=== PATIENT | female | born 1940 | race Caucasian/White ===

== ENCOUNTER → 2017-03-23 09:31 | Outpatient (CLI) | payer MEDICARE, BC, SELFPAY ==
[2017-03-23 12:24] LABS: Absolute Lymphocyte Count 1.63 X10^3/ul (0.83-4.51); Absolute Neutrophil Count 3.3 X10^3/uL (2.0-7.7); Basophil# 0.01 X10^3/uL; Basophil% 0.2 % (0-1); Eosinophil# 0.09 X10^3/uL; Eosinophils% 1.6 % (0-5); Hematocrit 41.5 % (37-47); Hemoglobin 13.4 g/dl (12.0-15.0); Lymphocyte # 1.63 X10^3/ul (4.0); Lymphocyte % 29.4 % (19-41); Mean Corp Hgb Conc 32.3 g/gl (32-36); Mean Corpuscular Hgb 36.3 pg (27.0-32.0); Mean Corpuscular Volume 112.5 fL (81-99); Mean Platelet Vol. 10.7 fl (6.2-12.0); Monocyte# 0.51 X10^3/uL; Monocyte% 9.2 % (0-10); Neutrophil # 3.28 X10^3/uL (2.7-7.7); Neutrophil % 59.2 % (47-70); Platelet Count 184 K/mm3 (150-450); RBC Distribution Width CV 12.7 % (11.6-14.6); RBC Distribution Width SD 50.3 fl (35.1-43.9); Red Blood Count 3.69 M/mm3 (4.2-5.4); White Blood Count 5.5 K/mm3 (4.4-11.0)
[2017-03-23 12:25] LABS: POSITIVE COUNT NO; POSITIVE DIFFERENTIAL NO; POSITIVE MORPHOLOGY NO
[2017-03-23 12:43] LABS: Vitamin D,25 Hydroxy 18.2 ng/mL (19.95-100.01)
[2017-03-23 12:56] LABS: ALB/GLOB Ratio 0.6 RATIO (0.9-2.4); AST(SGOT) 19 U/L (15-37); Alanine Aminotransfer ALT/SGPT 14 U/L (13-56); Albumin, Serum 2.5 g/dL (3.2-5.0); Alkaline Phosphatase 61 U/L (45-117); Anion Gap 8 (5-15); BUN 25 mg/dL (7-18); Calcium,Total 8.7 mg/dL (8.5-10.1); Chloride 104 mmol/L (98-107); Creatinine, Serum 1.04 mg/dL (0.55-1.02); EST Glomerular Filtration Rate 54 mL/min (>60); Est Glom Filt Rate - Afr Amer 66 mL/min (>60); Globulin 4.2 g/dL (2.2-4.2); Glucose 129 mg/dL (74-106); Potassium 4.1 mmol/L (3.5-5.1); Protein, Total 6.7 g/dL (6.4-8.2); Sodium Level 141 mmol/L (136-145); Thyroid Stim Hormone (TSH) 2.63 uIU/mL (0.358-3.74)
== END ==
PROVIDERS: Family Provider Family Medicine Geriatric Medicine; PCP Family Medicine Geriatric Medicine; Visit Provider Family Medicine Geriatric Medicine
DX: I10 Essential (primary) hypertension (principal); E55.9 Vitamin D deficiency, unspecified
CPT/HCPCS: 36415; 80053; 82306; 84443; 85025

== ENCOUNTER 2017-07-20 14:44 | Emergency (ER) | payer MEDICARE, BC, SELFPAY ==
--- NOTE | 2017-07-20 14:44 | DT_ITS ---
This patient was seen during an EMR downtime July 20, 2017 - July 27, 2017. This patient may have a combination of paper and electronic documentation or all paper documentation. All documentation is viewable within the e-chart portion of [facility] for each patient visit.
[2017-07-23 10:55] LABS: Anion Gap 5 (5-15); BUN 17 mg/dL (7-18); BUN/Creat Ratio 18.1 RATIO (10-20); Calcium,Total 8.3 mg/dL (8.5-10.1); Chloride 109 mmol/L (98-107); Creatinine, Serum 0.94 mg/dL (0.55-1.02); EST Glomerular Filtration Rate 61 mL/min (>60); Est Glom Filt Rate - Afr Amer 74 mL/min (>60); Glucose 96 mg/dL (74-106); Sodium Level 143 mmol/L (136-145)
[2017-07-24 10:46] LABS: Hematocrit 41.5 % (37-47); Hemoglobin 13.1 g/dl (12.0-15.0); Mean Corp Hgb Conc 31.6 g/gl (32-36); RBC Distribution Width CV 11.7 % (11.6-14.6); Red Blood Count 3.64 M/mm3 (4.2-5.4); White Blood Count 4.7 K/mm3 (4.4-11.0)
[2017-07-24 10:47] LABS: Absolute Lymphocyte Count 0.66 X10^3/ul (0.83-4.51); Absolute Neutrophil Count 3.6 X10^3/uL (2.0-7.7); Basophil# 0.01 X10^3/uL; Basophil% 0.2 % (0-1); Differential Indicated SCAN CRITERIA MET; Eosinophil# 0.08 X10^3/uL; Eosinophils% 1.7 % (0-5); Lymphocyte # 0.66 X10^3/ul (4.0); Macrocytosis 1+; Mean Platelet Vol. 10.4 fl (6.2-12.0); Monocyte# 0.42 X10^3/uL; Monocyte% 8.9 % (0-10); Neutrophil # 3.56 X10^3/uL (2.7-7.7); Neutrophil % 75.2 % (47-70); POSITIVE COUNT NO; POSITIVE DIFFERENTIAL NO; POSITIVE MORPHOLOGY YES; Platelet Count 147 K/mm3 (150-450)
== END 2017-07-20 17:44 | disposition home or self-care (01) ==
LOC: ED 07-22 13:29
PROVIDERS: Emergency Provider Emergency Medicine; Family Provider Family Medicine Geriatric Medicine; PCP Family Medicine Geriatric Medicine
DX: L03.115 Cellulitis of right lower limb (principal); F03.90 Unspecified dementia, unspecified severity, without behavioral disturbance, psychotic disturbance, mood disturbance, and anxiety; E78.00 Pure hypercholesterolemia, unspecified; E03.9 Hypothyroidism, unspecified; F32.9 Major depressive disorder, single episode, unspecified; Z86.73 Personal history of transient ischemic attack (TIA), and cerebral infarction without residual deficits; Z79.82 Long term (current) use of aspirin; Z79.899 Other long term (current) drug therapy
CPT/HCPCS: 36415; 80048; 85025; 93971; 96360; 96361; 99284; J7030; A4216

== ENCOUNTER → 2017-08-20 15:12 | Outpatient (CLI) | payer MEDICARE, BC, SELFPAY ==
--- NOTE | 2017-08-20 15:45 | RAD_ITS ---
STUDY: X-RAY - RIGHT ANKLE REASON FOR EXAM: Female, 77 years old. Lateral pain, no known injury TECHNIQUE: 3 view(s) of the ankle. COMPARISON: None. FINDINGS: Normal visualized distal tibia and fibula. Normal medial and lateral malleoli. Normal tibiotalar articulation and ankle mortise. Normal visualized talus and calcaneus. The visualized subtalar, talonavicular, calcaneocuboid and tarsal articulations are normal. The soft tissue structures are unremarkable. RAD/Ankle min 3 Views IMPRESSION: Normal x-ray examination of the ankle. Electronically Signed: Chapin Dumont MD at 16:03 EDT , Service support ,
[2017-08-20 17:13] LABS: Absolute Lymphocyte Count 1.03 X10^3/ul (0.83-4.51); Absolute Neutrophil Count 3.6 X10^3/uL (2.0-7.7); Basophil# 0.01 X10^3/uL; Basophil% 0.2 % (0-1); Eosinophil# 0.07 X10^3/uL; Eosinophils% 1.4 % (0-5); Hematocrit 43.3 % (37-47); Hemoglobin 13.5 g/dl (12.0-15.0); Lymphocyte # 1.03 X10^3/ul (4.0); Lymphocyte % 20.4 % (19-41); Mean Corp Hgb Conc 31.2 g/gl (32-36); Mean Corpuscular Hgb 34.6 pg (27.0-32.0); Mean Platelet Vol. 10.9 fl (6.2-12.0); Monocyte# 0.34 X10^3/uL; Monocyte% 6.7 % (0-10); Neutrophil # 3.61 X10^3/uL (2.7-7.7); Neutrophil % 71.3 % (47-70); Platelet Count 163 K/mm3 (150-450); RBC Distribution Width CV 12.4 % (11.6-14.6); RBC Distribution Width SD 49.8 fl (35.1-43.9); White Blood Count 5.1 K/mm3 (4.4-11.0)
[2017-08-20 17:15] LABS: Erythrocyte Sedimentation Rate 14 mm/hr (0-30); POSITIVE COUNT NO; POSITIVE DIFFERENTIAL NO; POSITIVE MORPHOLOGY NO
[2017-08-20 17:47] LABS: Anion Gap 8 (5-15); BUN 21 mg/dL (7-18); BUN/Creat Ratio 19.3 RATIO (10-20); CRP < 2.90 mg/L (0.0-3.0); Calcium,Total 8.5 mg/dL (8.5-10.1); Chloride 107 mmol/L (98-107); Creatinine, Serum 1.09 mg/dL (0.55-1.02); EST Glomerular Filtration Rate 51 mL/min (>60); Est Glom Filt Rate - Afr Amer 62 mL/min (>60); Glucose 87 mg/dL (74-106); Potassium 4.4 mmol/L (3.5-5.1); Sodium Level 143 mmol/L (136-145); Uric Acid 4.3 mg/dL (2.6-6.0)
== END ==
PROVIDERS: Family Provider Family Medicine Geriatric Medicine; PCP Family Medicine Geriatric Medicine; Visit Provider Family Medicine Geriatric Medicine
DX: I10 Essential (primary) hypertension (principal); M10.9 Gout, unspecified; M25.579 Pain in unspecified ankle and joints of unspecified foot
CPT/HCPCS: 36415; 73610; 80048; 84550; 85025; 85652; 86140

== ENCOUNTER → 2017-09-07 14:52 | Outpatient (CLI) | payer MEDICARE, BC, SELFPAY ==
[2017-09-07 17:09] LABS: Absolute Lymphocyte Count 0.83 X10^3/ul (0.83-4.51); Absolute Neutrophil Count 3.9 X10^3/uL (2.0-7.7); Basophil# 0.01 X10^3/uL; Basophil% 0.2 % (0-1); Eosinophil# 0.08 X10^3/uL; Eosinophils% 1.5 % (0-5); Hematocrit 43.3 % (37-47); Lymphocyte # 0.83 X10^3/ul (4.0); Lymphocyte % 15.8 % (19-41); Mean Corp Hgb Conc 32.3 g/gl (32-36); Mean Corpuscular Hgb 35.8 pg (27.0-32.0); Mean Corpuscular Volume 110.7 fL (81-99); Mean Platelet Vol. 11.1 fl (6.2-12.0); Monocyte# 0.46 X10^3/uL; Monocyte% 8.8 % (0-10); Neutrophil # 3.86 X10^3/uL (2.7-7.7); Neutrophil % 73.7 % (47-70); Platelet Count 167 K/mm3 (150-450); RBC Distribution Width SD 47.7 fl (35.1-43.9); Red Blood Count 3.91 M/mm3 (4.2-5.4); White Blood Count 5.2 K/mm3 (4.4-11.0)
[2017-09-07 17:11] LABS: POSITIVE COUNT NO; POSITIVE DIFFERENTIAL NO; POSITIVE MORPHOLOGY NO
[2017-09-07 17:38] LABS: ALB/GLOB Ratio 0.7 RATIO (0.9-2.4); AST(SGOT) 23 U/L (15-37); Alanine Aminotransfer ALT/SGPT 13 U/L (13-56); Albumin, Serum 2.9 g/dL (3.2-5.0); Alkaline Phosphatase 81 U/L (45-117); Anion Gap 8 (5-15); BUN 22 mg/dL (7-18); BUN/Creat Ratio 20.4 RATIO (10-20); Chloride 107 mmol/L (98-107); Creatinine, Serum 1.08 mg/dL (0.55-1.02); EST Glomerular Filtration Rate 52 mL/min (>60); Est Glom Filt Rate - Afr Amer 63 mL/min (>60); Globulin 3.9 g/dL (2.2-4.2); Glucose 92 mg/dL (74-106); Potassium 4.2 mmol/L (3.5-5.1); Protein, Total 6.8 g/dL (6.4-8.2); Sodium Level 144 mmol/L (136-145); Thyroid Stim Hormone (TSH) 1.88 uIU/mL (0.358-3.74)
== END ==
PROVIDERS: Family Provider Family Medicine Geriatric Medicine; PCP Family Medicine Geriatric Medicine; Visit Provider Family Medicine Geriatric Medicine
DX: I10 Essential (primary) hypertension (principal); N39.0 Urinary tract infection, site not specified; E55.9 Vitamin D deficiency, unspecified
CPT/HCPCS: 36415; 80053; 82306; 84443; 85025; 87086; 87088

== ENCOUNTER 2018-01-17 14:28 | Emergency (ER) | payer MEDICARE, BC, SELFPAY ==
[2018-01-17 14:28] VITALS: BP 157/76; PULSE 72; RESP 16; TEMP 36.6; O2SAT 96; BMI 21.7
--- NOTE | 2018-01-17 15:00 | RAD_ITS ---
STUDY: X-RAY - RIGHT TIBIA AND FIBULA REASON FOR EXAM: Female, 78 years old. Pain TECHNIQUE: 2 view(s) of the tibia and fibula were obtained. COMPARISON: None. FINDINGS: No definite evidence for an acute fracture or dislocation seen. There are likely vascular calcifications present. Talar dome appears intact. Fibular head neck junction appears intact. Calcaneal spurring. IMPRESSION: No definite evidence for acute fractures. Atherosclerotic vascular calcifications Electronically Signed: Cyrus Baca, at 16:15 EST Tel , Service support , RAD/Tibia & Fibula 2 Views
--- NOTE | 2018-01-17 15:00 | RAD_ITS ---
STUDY: X-RAY - RIGHT FOOT CLINICAL: Female, 78 years old. Injury and pain TECHNIQUE: Three view(s) of the foot were obtained. COMPARISON: None. FINDINGS: Bones: There are no acute osseous abnormalities. Joints: The visualized joints are unremarkable. Soft tissues: The soft tissues are unremarkable. Foreign body: None RAD/Foot min 3 Views IMPRESSION: No acute abnormalities are seen. Electronically Signed: Char Crooks MD at 16:20 EST Tel Direct: [phone], Service support ,
--- NOTE | 2018-01-17 15:01 | ED.VISSUMM ---
- ER Visit Summary Date of Service: 01/17/18 Chief Complaint: Leg pain History of Present Illness: The patient is a 78 F who fell last night. Mechanical fall. No loss of consciousness. She did not hit her head or neck. She complains of pain to her right leg and right foot. Worse with weightbearing and movement. Nothing seems to make it better. No other associated symptoms. Physical Examination: Afebrile and vital signs unremarkable. No acute distress. Head and neck grossly atraumatic. Right lower leg is diffusely tender to palpation. Right foot is also diffusely tender to palpation. Inspection appears normal. Good range of motion. Good strength and sensation. Pulses intact. Calf soft and supple. Negative logroll. Exam otherwise unremarkable. Test Results: X-rays of the leg and foot were obtained. Emergency Department Course and Treatment: Patient declined pain medicine. X-rays were negative. Nothing acute. Patient is able to ambulate. I suspect she has a soft tissue injuries, sprain. Patient was advised to follow-up in a week or so if she has continued pain for repeat x-rays. She may use anti-inflammatories for pain. Rest, ice, elevate. Treatment Plan: As above Disposition: Discharged Impression: 1. Right foot pain This note was generated with [employer] dictation software. It may contain incorrect words, spelling, and punctuation that were not noted in review of the chart prior to signing ED Disposition - Plan for ED Patient: Chief Complaint: Fall Instructions: ED Mechanical Fall Referrals: Kwan Murphy Chi, MD [Primary Care Provider] -
--- NOTE | 2018-01-17 16:37 | ED.DEP ---
ED Disposition - Plan for ED Patient: Chief Complaint: Fall Instructions: ED Mechanical Fall Referrals: Kwan Murphy Chi, MD [Primary Care Provider] -
[2018-01-17 16:48] VITALS: BP 179/90; PULSE 68; RESP 16; O2SAT 94
--- OUTSIDE RECORDS SUMMARY | 2018-03-12 23:55 | XMS RPT_ITS ---
:1940 Author Organization OHIP Support Name Relationship Address Phone R Unavailable Unavailable Unavailable CATHLEEN DANGELO Unavailable [address] + [place] [address] MYCHAL TORRE Unavailable [address] + [place] [address] R Unavailable Unavailable Unavailable CATHLEEN DANGELO Unavailable [address] + [place] [address] YELITZA, MYCHAL Unavailable [address] + [place] [address] R Unavailable Unavailable Unavailable CATHLEEN DANGELO Unavailable [address] + [place] [address] YELITZA, MYCHAL Unavailable [address] + [place] [address] R Unavailable Unavailable Unavailable CATHLEEN DANGELO Unavailable [address] + [place] [address] YELITZA, MYCHAL Unavailable [address] + [place] [address] R Unavailable Unavailable Unavailable CATHLEEN DANGELO Unavailable [address] + [place] [address] YELITZA, MYCHAL Unavailable [address] + [place] [address] R Unavailable Unavailable Unavailable CATHLEEN DANGELO Unavailable [address] + [place] [address] YELITZA, MYCHAL Unavailable [address] + [place] [address] R Unavailable Unavailable Unavailable CATHLEEN DANGELO Unavailable [address] + [place] [address] YELITZA, MYCHAL Unavailable [address] + [place] [address] R Unavailable Unavailable Unavailable RUMSARAI CATHLEEN Unavailable [address] + [facility] [place] [address] YELITZA, MYCHAL Unavailable [address] + [place] [address] Care Team Providers Name Role Phone Jeffrey, Kwan Chi Attending Unavailable Jeffrey, Kwan Chi Referring Unavailable Jeffrey, Kwan Chi Primary Care Unavailable Jeffrey, Kwan Chi Attending Unavailable Jeffrey, Kwan Chi Primary Care Unavailable Hermelinda Mejia Attending Unavailable Jeffrey, Kwan Chi Referring Unavailable Jeffrey, Kwan Chi Primary Care Unavailable Ungur, Remus Attending Unavailable Ungur, Remus Referring Unavailable Jeffrey, Kwan Chi Primary Care Unavailable Jeffrey, Kwan Chi Attending Unavailable Jeffrey, Kwan Chi Primary Care Unavailable Jeffrey, Kwan Chi Referring Unavailable Jeffrey, Kwan Chi Attending Unavailable Jeffrey, Kwan Chi Primary Care Unavailable Jeffrey, Kwan Chi Primary Care Unavailable Jesús Bruno Attending Unavailable Jeffrey, Kwan Chi Primary Care Unavailable [place] K[place]ian Admitting Unavailable Eulalio Brunson Attending Unavailable PROBLEMS PROBLEMS DATE TYPE CONDITION / CODE ATTENDING STATUS SOURCE 08/26/2017 Unknown I10 - Essential Jeffrey, Kwan Chi Active [facility] (primary) Community hypertension / Hospital I10(ICD-10) Repository 08/26/2017 Unknown M10.9 - Gout, Jeffrey, Kwan Chi Active [facility] unspecified / Community M10.9(ICD-10) Hospital Repository 08/13/2017 Unknown 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, Remus Active [facility] specified soft Community tissue disorders / Hospital M79.89(ICD-10) Repository 03/23/2017 Unknown E55.9 - Vitamin D Jeffrey, Kwan Chi Active [facility] deficiency, Community unspecified / Hospital E55.9(ICD-10) Repository PROCEDURES PROCEDURES No Procedure Records FoundRESULTS RESULTS DISCHARGE INSTRUCTION Observed: 01/17/2018 Status: F Source: [place] 4:54 PM [facility] REPOSITORY [facility] Medical Records Department [address] [place] [address] Discharge Instruction 01/17/18 1637 MR#: [id number] Acct: [id number] Name: DAHIANA DANGELO Rep #: [id number] : 1940 78 From: Jesús Bruno MD PCP: Kwan Murphy MD, Chi Status: DEP ER ED Disposition - Plan for ED Patient: Chief Complaint: Fall Instructions: ED Mechanical Fall Referrals: Kwan Murphy Chi, MD [Primary Care Provider] - What to do if you have Problems For any increased pain, shortness of breath, bleeding, nausea or vomiting, chest pain, or any unexpected problems, contact your Primary Care Provider. Call [facility] ([phone]) or report to the closest Emergency Room. Call 911 if necessary. 01/17/18 1654 <Electronically signed by Jesús Bruno MD> Date Jesús Bruno MD Cosigner Signature (If Indicated): Date CC: Kwan Murphy MD EMERGENCY DEPARTMENT Observed: 01/17/2018 Status: F Source: [place] SUMMARY 4:54 PM [facility] REPOSITORY [facility] Medical Records Department [address] [place] [address] Emergency Department Summary 01/17/18 1501 MR#: [id number] Acct: [id number] Name: DAHIANA DANGELO Rep #: [id number] : 1940 78 From: Jesús Bruno MD PCP: Kwan Murphy MD, Chi Status: DEP ER - ER Visit Summary Date of Service: 01/17/18 Chief Complaint: Leg pain History of Present Illness: The patient is a 78 F who fell last night. Mechanical fall. No loss of consciousness. She did not hit her head or neck. She complains of pain to her right leg and right foot. Worse with weightbearing and movement. Nothing seems to make it better. No other associated symptoms. Physical Examination: Afebrile and vital signs unremarkable. No acute distress. Head and neck grossly atraumatic. Right lower leg is diffusely tender to palpation. Right foot is also diffusely tender to palpation. Inspection appears normal. Good range of motion. Good strength and sensation. Pulses intact. Calf soft and supple. Negative logroll. Exam otherwise unremarkable. Test Results: X-rays of the leg and foot were obtained. Emergency Department Course and Treatment: Patient declined pain medicine. X-rays were negative. Nothing acute. Patient is able to ambulate. I suspect she has a soft tissue injuries, sprain. Patient was advised to follow-up in a week or so if she has continued pain for repeat x-rays. She may use anti-inflammatories for pain. Rest, ice, elevate. Treatment Plan: As above Disposition: Discharged Impression: 1. Right foot pain This note was generated with [employer] dictation software. It may contain incorrect words, spelling, and punctuation that were not noted in review of the chart prior to signing ED Disposition - Plan for ED Patient: Chief Complaint: Fall Instructions: ED Mechanical Fall Referrals: Kwan Murphy Chi, MD [Primary Care Provider] - What to do if you have Problems For any increased pain, shortness of breath, bleeding, nausea or vomiting, chest pain, or any unexpected problems, contact your Primary Care Provider. Call [facility] ([phone]) or report to the closest Emergency Room. Call 911 if necessary. 01/17/18 2602 <Electronically signed by Jesús Bruno MD> Date Jesús Bruno MD Cosigner Signature (If Indicated): Date CC: Kwan Murphy MD TIBIA AND FIBULA Observed: 01/17/2018 Status: F Source: [place] 2 VIEWS 3:01 PM [facility] REPOSITORY [facility] Imaging Services [facility] [place] [place] [address] Tibia AND Fibula 2 Views MR#: [id number] Acct: [id number] Name: DAHIANA DANGELO #: [id number] : 1940 F 78 From: Cyrus Baca MD PCP: Kwan Murphy MD, Chi Status: REG ER Study: Tibia AND Fibula 2 Views Date of Exam: 01/17/18 Exam# [id number] Ordering Dr: Jesús Bruno MD STUDY: X-RAY - RIGHT TIBIA AND FIBULA REASON FOR EXAM: Female, 78 years old. Pain TECHNIQUE: 2 view(s) of the tibia and fibula were obtained. COMPARISON: None. FINDINGS: No definite evidence for an acute fracture or dislocation seen. There are likely vascular calcifications present. Talar dome appears intact. Fibular head neck junction appears intact. Calcaneal spurring. IMPRESSION: No definite evidence for acute fractures. Atherosclerotic vascular calcifications Electronically Signed: Cyrus Baca, at 16:15 EST Tel , Service support , RAD/Tibia AND Fibula 2 Views CC: Jesús Bruno MD; Kwan Murphy MD Garment Inspector: Signed FOOT MIN 3 VIEWS Observed: 01/17/2018 Status: F Source: [place] 3:01 PM [facility] REPOSITORY [facility] Imaging Services [address] [place] [address] Foot min 3 Views MR#: [id number] Acct: [id number] Name: DAHIANA DANGELO Rep #: [id number] : 1940 F 78 From: Char Crooks MD PCP: Kwan Murphy MD, Chi Status: REG ER Study: Foot min 3 Views Date of Exam: 01/17/18 Exam# [id number] Ordering Dr: Jesús Bruno MD STUDY: X-RAY - RIGHT FOOT CLINICAL: Female, 78 years old. Injury and pain TECHNIQUE: Three view(s) of the foot were obtained. COMPARISON: None. FINDINGS: Bones: There are no acute osseous abnormalities. Joints: The visualized joints are unremarkable. Soft tissues: The soft tissues are unremarkable. Foreign body: None RAD/Foot min 3 Views IMPRESSION: No acute abnormalities are seen. Electronically Signed: Char Crooks MD at 16:20 EST Tel Direct: [phone], Service support , CC: Jesús Bruno MD; Kwan Murphy MD Garment Inspector: Signed Observed: 09/07/2017 Status: F Source: [place] CULTURE, URINE 3:30 PM [facility] REPOSITORY Urine Culture ORGANISM 1: Mixed Gram Pos AND Gram Neg Org [place] Count >100,000 MIX CULTURE Mixed contaminants. Submit a new specimen if indicated. Performed By: #### M100.0650 #### [facility] [place], [address] CBC W/DIFF, AUTOMATED Collected: 09/07/2017 Status: F Source: [place] 2:55 PM [facility] REPOSITORY TYPE CODE TESTS RESULT OUT OF RANGE REFERENCE UNITS LAB L100.1000 4.4-11.0 K/mm3 Normal WBC 5.2 LAB L100.1200 4.2-5.4 M/mm3 Low RBC 3.91 LAB L100.1300 12.0-15.0 g/dl Normal HGB 14.0 LAB L100.1400 37-47 % Normal HCT 43.3 LAB L100.1500 81-99 fL High MCV 110.7 LAB L100.1600 27.0-32.0 pg High MCH 35.8 LAB L100.1700 32-36 g/gl Normal MCHC 32.3 LAB L100.1810 11.6-14.6 % Normal RDW CV 12.0 LAB L100.1820 35.1-43.9 fl High RDW SD 47.7 LAB L100.1900 150-450 K/mm3 Normal PLT 167 LAB L100.2000 6.2-12.0 fl Normal MPV 11.1 LAB L100.2100 47-70 % High NEUT% 73.7 LAB L100.2200 19-41 % Low LY% 15.8 LAB L100.2300 0-10 % Normal MONO% 8.8 LAB L100.2400 0-5 % Normal EO% 1.5 LAB L100.2500 0-1 % Normal BASO% 0.2 LAB L100.2550 0.0-0.9 % Normal IM GRAN % 0.000 Result Comment: IG% - Immature Granulocytes (promyelocytes, myelocytes and metamyelocytes) > 1% indicates that a LEFT SHIFT is Present. LAB L100.2620 2.0-7.7 X10 3/uL Normal Absolute Neut 3.9 LAB L100.2720 0.83-4.51 X10 3/ul Normal Absolute Lymph 0.83 Performed By: #### L100.0100 #### [facility] [address] [place], [place], [address] VITAMIN D,25 HYDROXY Collected: 09/07/2017 Status: F Source: [place] 2:55 PM [facility] REPOSITORY TYPE CODE TESTS RESULT OUT OF REFERENCE UNITS RANGE LAB L506.1000 29.95-100.01 ng/mL Low Vitamin D 24.0 25-OH Result Comment: Vitamin D 25(OH) Status Range Deficiency <20 ng/mL (50nmol/L) Insuffciency 20 - 30 ng/mL (50 - 75 nmol/L) Sufficiency 30 - 100 ng/mL (75 - 250 nmol/L) Toxicity >100 ng/mL (>250 nmol/L) Performed By: #### L506.1000 #### [facility] [address] [place], [place], [address] COMPREHENSIVE METABOLIC Collected: 09/07/2017 Status: F Source: [facility] 2:55 PM [facility] REPOSITORY TYPE CODE TESTS RESULT OUT OF RANGE REFERENCE UNITS LAB L501.0100 74-106 mg/dL Normal GLU 92 Result Comment: Please note revised GLUCOSE reference range effective 2017. LAB L501.1000 7-18 mg/dL High BUN 22 LAB L501.1100 0.55-1.02 mg/dL High CREAT,SERUM 1.08 Result Comment: The validity of the calculated GFR AND GFRAA in patients over 70 years has not been determined. Clinical correlation is essential. LAB L501.1110 >60 mL/min Low EST GFR 52 Result Comment: Non- GFR Calc LAB L501.1115 >60 mL/min Normal EST GFR - AA 63 Result Comment: GFR Calc LAB L501.1300 10-20 RATIO High BUN/CRE 20.4 LAB L501.1500 6.4-8.2 g/dL T Normal PROT 6.8 LAB L501.1800 3.2-5.0 g/dL Low ALB 2.9 LAB L501.1950 2.2-4.2 g/dL Normal GLOB 3.9 LAB L501.2000 0.9-2.4 RATIO Low A/G 0.7 LAB L501.2200 8.5-10.1 mg/dL CA Normal 9.0 LAB L501.4100 15-37 U/L Normal AST 23 LAB L501.4305 45-117 U/L Normal ALK P 81 LAB L501.4405 13-56 U/L Normal ALT 13 LAB L501.4600 0.20-1.00 mg/dL T Normal BILI 0.50 LAB L501.5300 136-145 mmol/L NA Normal 144 LAB L501.5600 3.5-5.1 mmol/L K Normal 4.2 LAB L501.5900 98-107 mmol/L CL Normal 107 LAB L501.6100 21.0-32.0 mmol/L Normal CO2 29.0 LAB L501.6200 5-15 Normal GAP 8 Performed By: #### L500.4050, L501.9520 #### [facility] [address] [place], [place], [id number] THYROID STIM HORMONE Collected: 09/07/2017 Status: F Source: [place] (TSH) 2:55 PM [facility] REPOSITORY TYPE CODE TESTS RESULT OUT OF RANGE REFERENCE UNITS LAB L501.9520 0.358-3.74 uIU/mL Normal TSH 1.88 Performed By: #### L500.4050, L501.9520 #### [facility] [address] [place], [place], [address] ANKLE MIN 3 VIEWS Observed: 08/20/2017 Status: F Source: [place] 3:31 PM [facility] REPOSITORY [facility] [place] [address] Ankle min 3 Views MR#: [id number] Acct: [id number] Name: DAHIANA DANGELO Rep #: [id number] : 1940 F 77 From: Chapin Dumont MD PCP: Kwan Murphy MD, Chi Status: REG CLI Study: Ankle min 3 Views Date of Exam: 08/20/17 Exam# [id number] Ordering Dr: Kwan Murphy MD STUDY: X-RAY - RIGHT ANKLE REASON FOR EXAM: Female, 77 years old. Lateral pain, no known injury TECHNIQUE: 3 view(s) of the ankle. COMPARISON: None. FINDINGS: Normal visualized distal tibia and fibula. Normal medial and lateral malleoli. Normal tibiotalar articulation and ankle mortise. Normal visualized talus and calcaneus. The visualized subtalar, talonavicular, calcaneocuboid and tarsal articulations are normal. The soft tissue structures are unremarkable. RAD/Ankle min 3 Views IMPRESSION: Normal x-ray examination of the ankle. Electronically Signed: Chapin Dumont MD at 16:03 EDT , Service support , CC: Kwan Murphy MD Garment Inspector: Signed CBC W/DIFF, AUTOMATED Collected: 08/20/2017 Status: F Source: [place] 3:14 PM [facility] REPOSITORY TYPE CODE TESTS RESULT OUT OF RANGE REFERENCE UNITS LAB L100.1000 4.4-11.0 K/mm3 Normal WBC 5.1 LAB L100.1200 4.2-5.4 M/mm3 Low RBC 3.90 LAB L100.1300 12.0-15.0 g/dl Normal HGB 13.5 LAB L100.1400 37-47 % Normal HCT 43.3 LAB L100.1500 81-99 fL High MCV 111.0 LAB L100.1600 27.0-32.0 pg High MCH 34.6 LAB L100.1700 32-36 g/gl Low MCHC 31.2 LAB L100.1810 11.6-14.6 % Normal RDW CV 12.4 LAB L100.1820 35.1-43.9 fl High RDW SD 49.8 LAB L100.1900 150-450 K/mm3 Normal PLT 163 LAB L100.2000 6.2-12.0 fl Normal MPV 10.9 LAB L100.2100 47-70 % High NEUT% 71.3 LAB L100.2200 19-41 % Normal LY% 20.4 LAB L100.2300 0-10 % Normal MONO% 6.7 LAB L100.2400 0-5 % Normal EO% 1.4 LAB L100.2500 0-1 % Normal BASO% 0.2 LAB L100.2550 0.0-0.9 % Normal IM GRAN % 0.000 Result Comment: IG% - Immature Granulocytes (promyelocytes, myelocytes and metamyelocytes) > 1% indicates that a LEFT SHIFT is Present. LAB L100.2620 2.0-7.7 X10 3/uL Normal Absolute Neut 3.6 LAB L100.2720 0.83-4.51 X10 3/ul Normal Absolute Lymph 1.03 Performed By: #### L100.0100, L101.9900 #### [facility] [address] [place], [place], [id number] ERYTHROCYTE SED RATE Collected: 08/20/2017 Status: F Source: [place] 3:14 PM [facility] REPOSITORY TYPE CODE TESTS RESULT OUT OF RANGE REFERENCE UNITS LAB L102.0000 0-30 mm/hr Normal SED RATE 14 Performed By: #### L100.0100, L101.9900 #### [facility] [address] [place], [place], [id number] BASIC METABOLIC Collected: 08/20/2017 Status: F Source: [place] PROFILE (BMP) 3:14 PM [facility] REPOSITORY TYPE CODE TESTS RESULT OUT OF RANGE REFERENCE UNITS LAB L501.0100 74-106 mg/dL Normal GLU 87 Result Comment: Please note revised GLUCOSE reference range effective 2017. LAB L501.1000 7-18 mg/dL High BUN 21 LAB L501.1100 0.55-1.02 mg/dL High CREAT,SERUM 1.09 Result Comment: The validity of the calculated GFR AND GFRAA in patients over 70 years has not been determined. Clinical correlation is essential. LAB L501.1110 >60 mL/min Low EST GFR 51 Result Comment: Non- GFR Calc LAB L501.1115 >60 mL/min Normal EST GFR - AA 62 Result Comment: GFR Calc LAB L501.1300 10-20 RATIO Normal BUN/CRE 19.3 LAB L501.2200 8.5-10.1 mg/dL CA Normal 8.5 LAB L501.5300 136-145 mmol/L NA Normal 143 LAB L501.5600 3.5-5.1 mmol/L K Normal 4.4 LAB L501.5900 98-107 mmol/L CL Normal 107 LAB L501.6100 21.0-32.0 mmol/L Normal CO2 28.0 LAB L501.6200 5-15 Normal GAP 8 Performed By: #### L500.2500, L501.1400, L501.6710 #### [facility] [address] [place], [place], [id number] URIC ACID Collected: 08/20/2017 Status: F Source: [place] 3:14 PM [facility] REPOSITORY TYPE CODE TESTS RESULT OUT OF RANGE REFERENCE UNITS LAB L501.1400 2.6-6.0 mg/dL Normal URIC 4.3 Result Comment: The drugs N-Acetylcysteine and Metamizole may falsely depress this assay. Performed By: #### L500.2500, L501.1400, L501.6710 #### [facility] [address] [place], [place], [address] CRP Collected: 08/20/2017 Status: F Source: [place] 3:14 PM [facility] REPOSITORY TYPE CODE TESTS RESULT OUT OF RANGE REFERENCE UNITS LAB L501.6710 0.0-3.0 mg/L Normal < 2.90 C-REACTIVE PROT Result Comment: C-Reactive Protein (CRP) provides useful information for the diagnosis, therapy and monitoring of inflammatory processes and associated diseases. For the evaluation of Relative Risk for Cardiovascular Disease, a High Sensitivity CRP (HSCRP) should be ordered. Performed By: #### L500.2500, L501.1400, L501.6710 #### [facility] [address] [place], [address] DOWNTIME REPORT Observed: 08/05/2017 Status: F Source: [place] 1:12 PM [facility] REPOSITORY [facility] Medical Records Department [address] [place] [address] Downtime Report MR#: [id number] Acct: [id number] Name: DAHIANA DANGELO Rep #: [id number] : 1940 77 From: Ad Bradshaw MD PCP: Jeffrey MARRERO,Kwan Roger Status: DEP ER This patient was seen during an EMR downtime July 20, 2017 - July 27, 2017. This patient may have a combination of paper and electronic documentation or all paper documentation. All documentation is viewable within the e-chart portion of [employer] for each patient visit. BASIC METABOLIC Collected: 07/20/2017 Status: F Source: [place] PROFILE (BMP) 3:08 PM [facility] REPOSITORY Order Comment: RESULT(S) PREVIOUSLY REPORTED ON MANUAL REQUISITION DURING DOWNTIME. TYPE CODE TESTS RESULT OUT OF RANGE REFERENCE UNITS LAB L501.0100 74-106 mg/dL Normal GLU 96 Result Comment: Please note revised GLUCOSE reference range effective 2017. LAB L501.1000 7-18 mg/dL Normal BUN 17 LAB L501.1100 0.55-1.02 mg/dL Normal CREAT,SERUM 0.94 Result Comment: The validity of the calculated GFR AND GFRAA in patients over 70 years has not been determined. Clinical correlation is essential. LAB L501.1110 >60 mL/min Normal EST GFR 61 LAB L501.1115 >60 mL/min Normal EST GFR - AA 74 LAB L501.1300 10-20 RATIO Normal BUN/CRE 18.1 LAB L501.2200 8.5-10.1 mg/dL Low CA 8.3 LAB L501.5300 136-145 mmol/L Normal NA 143 LAB L501.5600 3.5-5.1 mmol/L Normal K 4.0 LAB L501.5900 98-107 mmol/L High CL 109 LAB L501.6100 21.0-32.0 mmol/L Normal CO2 29.0 LAB L501.6200 5-15 Normal GAP 5 Performed By: #### L500.2500 #### [facility] [address] [place], [address] CBC W/DIFF, AUTOMATED Collected: 07/20/2017 Status: F Source: [place] 3:08 PM [facility] REPOSITORY Order Comment: TESTED AT [facility] RESULT(S) PREVIOUSLY REPORTED ON MANUAL REQUISITION DURING DOWNTIME. TYPE CODE TESTS RESULT OUT OF REFERENCE UNITS RANGE LAB L100.1000 4.4-11.0 K/mm3 WBC 4.7 Normal LAB L100.1200 4.2-5.4 M/mm3 Low RBC 3.64 LAB L100.1300 12.0-15.0 g/dl HGB 13.1 Normal LAB L100.1400 37-47 % HCT 41.5 Normal LAB L100.1500 81-99 fL MCV 114.0 High LAB L100.1600 27.0-32.0 pg MCH 36.0 High LAB L100.1700 32-36 g/gl Low MCHC 31.6 LAB L100.1810 11.6-14.6 % RDW 11.7 Normal CV LAB L100.1820 35.1-43.9 fl RDW 47.0 High SD LAB L100.1900 150-450 K/mm3 Low PLT 147 LAB L100.2000 6.2-12.0 fl MPV 10.4 Normal LAB L100.2100 47-70 % NEUT% 75.2 High LAB L100.2200 19-41 % Low LY% 14.0 LAB L100.2300 0-10 % MONO% 8.9 Normal LAB L100.2400 0-5 % EO% 1.7 Normal LAB L100.2500 0-1 % BASO% 0.2 Normal LAB L100.2550 0.0-0.9 % IM Test Normal GRAN % not performed LAB L100.2620 2.0-7.7 X10 3/uL 3.6 Normal Absolute Neut LAB L100.2720 0.83-4.51 X10 3/ul Low 0.66 Absolute Lymph LAB L100.7800 1+ Normal MACROCYTE Performed By: #### L100.0100 #### [facility] [address] [place], [address] URGENT CARE VISIT Observed: 05/11/2017 Status: F Source: [place] REPORT 8:51 AM [facility] REPOSITORY [facility] [address] [place] [address] [address] [place] [address] OFFICE VISIT Date of Service: 05/10/17 MR#: [id number] Acct: [id number] Name: DAHIANA DANGELO Rep #: [id number] : 1940 Provider: Hermelinda Mejia Age/Sex: 77/F Location: [facility] Status: Signed Intake Vital Signs05/10/17 Height 5 ft 5 in 05/10/17 Weight: 184 lb 05/10/17 Body Mass Index (BMI) 30.6 Intake Visit Reasons: Diarrhea Supervisor Area Required: No Is patient in pain?: No Allergies Penicillins Allergy (Severe, Verified 05/10/17 14:03) Unknown Medications Aspirin [Aspirin, Baby] 81 mg PO DAILY@0800 09/01/14 [History Confirmed 05/10/17] Atorvastatin Calcium [Lipitor] 20 mg PO QHS 09/01/14 [History Confirmed 05/10/17] Donepezil HCl [Aricept] 5 mg PO QHS 01/29/17 [History Confirmed 05/10/17] Ergocalciferol [Vitamin D] 50,000 unit PO QMONTH 01/29/17 [History Confirmed 05/10/17] Levothyroxine Sodium [Synthroid] 75 mcg PO DAILY 01/29/17 [History Confirmed 05/10/17] Paroxetine [Paxil] 10 mg PO DAILY 01/29/17 [History Confirmed 05/10/17] Tamsulosin HCl [Flomax] 0.4 mg PO DAILY 01/29/17 [History Confirmed 05/10/17] Albuterol Inhaler [Ventolin Hfa] 1 - 2 puff INHALATION Q4H PRN PRN #1 inhaler 01/30/17 [Rx Confirmed 05/10/17] Guaifenesin [Mucinex] 1,200 mg PO BID #10 tab 01/30/17 [Rx Confirmed 05/10/17] Prednisone 4 tab PO DAILY #16 tab 01/30/17 [Rx Confirmed 05/10/17] levoFLOXacin tablet [Levaquin] 500 mg PO DAILY #4 tab 01/30/17 [Rx Confirmed 05/10/17] [facility] Medical History Arthritis (Acute) Difficulty balancing (Acute) Fatigue (Acute) Hay fever (Acute) History of bronchitis (Acute) Incontinence (Acute) Severe headache (Acute) Hypertension (Chronic) Social History Smoking Status: Never smoker alcohol intake: never HPI HPI Details: DAHIANA DANGELO, is a 77 F who presents to the office today for an urgent appointment Patient states that she has had diarrhea approximately 6-8 times a day for the last 3 days. She does not have any fevers. She just feels fatigued. She does not have any blood in her diarrhea. She is able to eat without vomiting. She is able to keep herself hydrated. They have not used any [id number] medication for this. ROS Const Constitutional: Positive for fatigue and weakness; no fever(s) or headache(s) Eyes Eyes: No blurry vision or double vision ENT ENT: No abnormal hearing, sinus pain, headache(s) or neck pain Resp Respiratory: No cough Cardio Cardiology: No chest pain at rest, chest pain with exertion or leg pain with exertion Gastro GI: Positive for diarrhea, nausea/dyspepsia and loose stools; no abdominal pain, Black,tarry stools, blood in stool or Vomiting blood/hematemesis Musc Musculoskeletal: No neck pain Neuro Neurology: Positive for weakness; no abnormal hearing or headache(s) Endo Endocrine: Positive for fatigue Exam Const General: cooperative, healthy appearing, no acute distress Nutritional Appearance: average body habitus [facility] Head: normal to inspection Ears: hearing grossly normal bilaterally Nose: external nose normal, nasal mucous membranes and turbinates normal Mouth: moist mucous membranes Eyes General: appearance normal, both eyes and all related structures Periorbital: periorbital findings normal Eyelids: eyelids normal Conjunctivae: conjunctivae normal Sclera: sclerae normal Cornea: corneas normal Pupils: PERRL Neck Neck: normal visual inspection, no lymphadenopathy Chest Chest palpation AND inspection: normal inspection of the chest Resp Effort AND Inspection: normal respiratory effort Auscultation: Bilateral: Clear to Auscultation Cardio Palpation: normal PMI Rhythm: regular rhythm Heart Sounds: S1 normal, S2 normal, no gallops, no murmurs, no rubs GI Inspection: normal to inspection Auscultation: normal bowel sounds, hyperactive bowel sounds Palpation: soft, no hepatosplenomegaly Neuro General: alert, awake, oriented x3, CN's II-XI intact bilaterally Assessment AND Plan Problems 1. Diarrhea, unspecified type R19.7 2. Gastroenteritis K52.9 Plan Advised mom and daughter of gastroenteritis symptoms and treatment for this. Advised of importance of hydration and symptoms of dehydration. Advised of a bland diet. Instructed that if symptoms have not improved after 10 days that they should contact her primary care doctor. Advised that if symptoms of dehydration's persist they should go to the emergency room. Coding Level of Care Code Off vis,new,level 3 Diagnoses Diarrhea, unspecified type R19.7 Diarrhea type: unspecified type Gastroenteritis K52.9 05/11/17 0851 <Electronically signed by Hermelinda LOVELL> Date Hermelinda LOVELL Cosigner Signature: Date (if applicable) CC: CBC W/DIFF, AUTOMATED Collected: 03/23/2017 Status: F Source: [place] 9:33 AM [facility] [place] REPOSITORY TYPE CODE TESTS RESULT OUT OF RANGE REFERENCE UNITS LAB L100.1000 4.4-11.0 K/mm3 Normal WBC 5.5 LAB L100.1200 4.2-5.4 M/mm3 Low RBC 3.69 LAB L100.1300 12.0-15.0 g/dl Normal HGB 13.4 LAB L100.1400 37-47 % Normal HCT 41.5 LAB L100.1500 81-99 fL High MCV 112.5 LAB L100.1600 27.0-32.0 pg High MCH 36.3 LAB L100.1700 32-36 g/gl Normal MCHC 32.3 LAB L100.1810 11.6-14.6 % Normal RDW CV 12.7 LAB L100.1820 35.1-43.9 fl High RDW SD 50.3 LAB L100.1900 150-450 K/mm3 Normal PLT 184 LAB L100.2000 6.2-12.0 fl Normal MPV 10.7 LAB L100.2100 47-70 % Normal NEUT% 59.2 LAB L100.2200 19-41 % Normal LY% 29.4 LAB L100.2300 0-10 % Normal MONO% 9.2 LAB L100.2400 0-5 % Normal EO% 1.6 LAB L100.2500 0-1 % Normal BASO% 0.2 LAB L100.2550 0.0-0.9 % Normal IM GRAN % 0.400 Result Comment: IG% - Immature Granulocytes (promyelocytes, myelocytes and metamyelocytes) > 1% indicates that a LEFT SHIFT is Present. LAB L100.2620 2.0-7.7 X10 3/uL Normal Absolute Neut 3.3 LAB L100.2720 0.83-4.51 X10 3/ul Normal Absolute Lymph 1.63 Performed By: #### L100.0100 #### [facility] [address] [place] [address], [id number] VITAMIN D,25 HYDROXY Collected: 03/23/2017 Status: F Source: [place] 9:33 [facility] REPOSITORY TYPE CODE TESTS RESULT OUT OF REFERENCE UNITS RANGE LAB L506.1000 19.95-100.01 ng/mL Low Vitamin D 18.2 25-OH Result Comment: Vitamin D 25(OH) Status Range Deficiency <20 ng/mL (50nmol/L) Insuffciency 20 - 30 ng/mL (50 - 75 nmol/L) Sufficiency 30 - 100 ng/mL (75 - 250 nmol/L) Toxicity >100 ng/mL (>250 nmol/L) Performed By: #### L506.1000 #### [facility] [place], [place], [address] COMPREHENSIVE METABOLIC Collected: 03/23/2017 Status: F Source: [facility] 9:33 AM [facility] REPOSITORY TYPE CODE TESTS RESULT OUT OF RANGE REFERENCE UNITS LAB L501.0100 74-106 mg/dL High GLU 129 Result Comment: Fasting Glucose result greater than or equal to 126 mg/dL suggests DIABETES MELLITUS per A.D.A. criteria. LAB L501.1000 7-18 mg/dL High BUN 25 LAB L501.1100 0.55-1.02 mg/dL High CREAT,SERUM 1.04 Result Comment: The validity of the calculated GFR AND GFRAA in patients over 70 years has not been determined. Clinical correlation is essential. LAB L501.1110 >60 mL/min Low EST GFR 54 Result Comment: Non- GFR Calc LAB L501.1115 >60 mL/min Normal EST GFR - AA 66 Result Comment: GFR Calc LAB L501.1300 10-20 RATIO High BUN/CRE 24.0 LAB L501.1500 6.4-8.2 g/dL T Normal PROT 6.7 LAB L501.1800 3.2-5.0 g/dL Low ALB 2.5 LAB L501.1950 2.2-4.2 g/dL Normal GLOB 4.2 LAB L501.2000 0.9-2.4 RATIO Low A/G 0.6 LAB L501.2200 8.5-10.1 mg/dL CA Normal 8.7 LAB L501.4100 15-37 U/L Normal AST 19 LAB L501.4305 45-117 U/L Normal ALK P 61 LAB L501.4405 13-56 U/L Normal ALT 14 Result Comment: Please note revised ALT reference range effective 2017. LAB L501.4600 0.20-1.00 mg/dL Normal T BILI 0.50 LAB L501.5300 136-145 mmol/L Normal NA 141 LAB L501.5600 3.5-5.1 mmol/L Normal K 4.1 LAB L501.5900 98-107 mmol/L Normal CL 104 LAB L501.6100 21.0-32.0 mmol/L Normal CO2 29.0 LAB L501.6200 5-15 Normal GAP 8 Performed By: #### L500.4050, L501.9520 #### [facility] [address] [place], [place], [id number] THYROID STIM HORMONE Collected: 03/23/2017 Status: F Source: [place] (TSH) 9:33 AM [facility] REPOSITORY TYPE CODE TESTS RESULT OUT OF RANGE REFERENCE UNITS LAB L501.9520 0.358-3.74 uIU/mL Normal TSH 2.63 Performed By: #### L500.4050, L501.9520 #### [facility] [address] [place], [address] CHEST PA AND LATERAL Observed: 02/19/2017 Status: F Source: [place] 5:31 PM [facility] REPOSITORY [facility] Imaging Services [address] [place] [address] Chest PA and Lateral MR#: [id number] Acct: [id number] Name: DAHIANA DANGELO Rep #: [id number] : 1940 F 77 From: Sunil Osman MD PCP: Kwan Murphy MD, Chi Status: REG CLI Study: Chest PA and Lateral Date of Exam: 02/19/17 Exam# [id number] Ordering Dr: Kwan Murphy MD STUDY: X-RAY CHEST REASON FOR EXAM: Female, 77 years old. Cough. TECHNIQUE: Frontal and lateral views of the chest. COMPARISON: January 29, 2017 FINDINGS: The lungs are hyperexpanded and there is a diffuse interstitial pattern relatively unchanged. There is no demonstrated pleural abnormality. There is borderline cardiomegaly unchanged. Normal mediastinum and timothy. Normal visualized pulmonary arteries. There is atherosclerotic calcification of the aortic arch with tortuosity unchanged. There are diffuse degenerative changes of the visualized thoracic spine. Normal visualized ribs, clavicles, and shoulders. There is no demonstrated abnormality of the visualized soft tissue structures of the upper abdomen. RAD/Chest PA and Lateral IMPRESSION: Stable cardiomegaly, hyperexpansion and diffuse interstitial pattern. No acute pathology. Electronically Signed: Sunil Osman MD at 18:43 EST , Service support , CC: Kwan Murphy MD Garment Inspector: Signed 12 LEAD ELECTROCARDIOGRAM Observed: 02/04/2017 Status: F Source: [place] 1:52 PM [facility] REPOSITORY [facility] Cardiovascular Services [address] [place] [address] 12 Lead EKG 01/29/17 1651 MR#: [id number] Acct: [id number] Name: DAHIANA DANGELO Rep #: [id number] : 1940 77 From: Nicanor Quiñonez MD Attending Dr: Eulalio Brunson DO Status: DIS IN Ordering Dr: Nithin Ryan MD Date: 01/29/17 [place] [facility] Sex: F C Admitted: 01/29/17 Test Reason : SOB Blood Pressure : / mmHG Vent. Rate : 084 BPM Atrial Rate : 084 BPM P-R Int : 162 ms QRS Dur : 070 ms QT Int : 350 ms P-R-T Axes : 068 035 050 degrees QTc Int : 413 ms Normal sinus rhythm Normal ECG Confirmed by JONA MARRERO, NICANOR ([id number]), website/blog editor MAUREEN BRADSHAW ([id number]) on 02/04/2017 1:52:07 PM Referred By: BRANDEE Confirmed By:NICANOR QUIÑONEZ MD 02/04/17 1352 Date Nicanor Quiñonez MD CC: Kwan Murphy MD Signed ALLERGIES ALLERGIES DATE TYPE / CODE NAME / CODE REACTION SEVERITY SOURCE 01/17/2018 Drug No Known Unknown [facility] Allergy/4160 Allergies/F00 [place] [address](SNOMED [id number](RXNOR Repository CT) M) 05/10/2017 Drug Penicillins/F Unknown SV [facility] Allergy/4160 [id number](RX Hospital [address](SNOMED ORM) Repository CT) ENCOUNTERS ENCOUNTERS ADMIT/DISCHARGE ACCOUNT ADMITTING ENCOUNTER LOCATION SOURCE NUMBER CLASS 01/17/2018/ [id number] Emergency Warden Warden 8 5 [facility] ing:ED Repository 09/07/2017 [id number] Ambulatory Donovan Donovan 4 [facility] ing:POLAB3 Repository 08/20/2017 [id number] Ambulatory Warden Donovan 5 [facility] ing:POLAB3 Repository 07/20/2017/ [id number] Emergency Warden Warden 8 0 [facility] ing:ED Repository 05/10/2017/ [id number] Ambulatory BMSBuilding:B Donovan 8 7 [facility] Repository 03/23/2017 [id number] Ambulatory Donovan Donovan 2 [facility] ing:POLAB3 Repository 02/19/2017 [id number] Ambulatory Donovan Warden 5 [facility] ing:RAD Repository 01/29/2017/ [id number] [place], Inpatient Donovan Warden 7 8 [place] Encounter [facility] ing:WZ1Xqko: Repository AG442Lyr: 1 PAYERS PAYERS ENCOUNTER GUARANTOR PAYER SUBSCRIBER SOURCE 01/17/2018 DAHIANA L Primary DAHIANA L Donovan [id number] W Insurance:MEDICARE RUMBURGDOB: [id number] Number: [place] [id number]: (330) Date:2018-01-17 [phone] () 01/17/2018 Secondary DAHIANA L Warden Insurance:ANTHEMPolic RUMBURGDOB: [facility] y Number: [id number] Hospital [id number] Repository Date:2492-56-49KY [facility] [address], [place] [address]MA: 01/17/2018 Tertiary NOT GIVENUNK Warden Insurance:SELF PAY [facility] Number: Effective Repository Date:2018-01-17 09/07/2017 Dahiana L Primary Dahiana L Donovan [id number] W Insurance:MEDICARE RumburgDOB: [facility] [id number] [facility] Number: [place] [id number]: (330) Date:2017-09-07 [phone] (HP) 09/07/2017 Secondary Dahiana L Donovan Insurance:ANTHEMPolic RumburgDOB: Community y Number: [id number] Hospital [id number] Repository Date:6152-25-87X[address], [place] [address]AU: 09/07/2017 Tertiary NOT GIVENUNK Donovan Insurance:SELF PAY [facility] Number: Effective Repository Date:2017-09-07 08/20/2017 Dahiana L Primary Dahiana L Donovan [id number] W Insurance:MEDICARE RumburgDOB: [facility] [id number] [facility] Number: Repository [place] [id number]: (330) Date:2017-08-20 [phone] () 08/20/2017 Secondary Dahiana L Donovan Insurance:ANTHEMPolic RumburgDOB: Community y Number: [id number] Hospital [id number] Repository Date:8212-72-80UI [address], [place] [address]CX: 08/20/2017 Tertiary NOT GIVENUNK Donovan Insurance:SELF PAY [facility] Number: Effective Repository Date:2017-08-20 07/20/2017 Dahiana L Primary Dahiana L Donovan [id number] W Insurance:MEDICARE RumburgDOB: [facility] [id number] [facility] Number: Repository [place] [id number]: (330) Date:2017-07-20 [phone] (HP) 07/20/2017 Secondary Dahiana L Donovan Insurance:ANTHEMPolic RumburgDOB: Community y Number: [id number] Hospital [id number] Repository Date:9413-49-51JS [address]KO[place], [place] [address]SA: 07/20/2017 Tertiary NOT GIVENUNK Donovan Insurance:SELF PAY [facility] Number: Effective Repository Date:2017-07-20 05/10/2017 Dahiana L Primary Dahiana L Warden [id number] W Insurance:MEDICARE RumburgDOB: [facility] [id number] [facility] Number: Repository [place] [id number]: (330) Date:2017-05-10 [phone] () 05/10/2017 Secondary Dahiana L Donovan Insurance:ANTHEMPolic RumburgDOB: Community y Number: [id number] Hospital [id number] Repository Date:3025-84-17AP [facility] [id number] [place] [address]XD: 05/10/2017 Tertiary NOT GIVENUNK Donovan Insurance:SELF PAY [facility] Number: Effective Repository Date:2017-05-10 03/23/2017 Dahiana L Primary Dahiana L Donovan [id number] W Insurance:MEDICARE RumburgDOB: [facility] [id number] [facility] Number: [place] [id number]: (330) Date:2017-03-23 [phone] () 03/23/2017 Secondary Dahiana L Donovan Insurance:ANTHEMPolic RumburgDOB: Community y Number: [id number] Hospital [id number] Repository Date:1825-08-63EV [address]BP[place], [place] [address]FI: 03/23/2017 Tertiary NOT GIVENUNK Donovan Insurance:SELF PAY [facility] Number: Effective Repository Date:2017-03-23 02/19/2017 Dahiana L Primary Dahiana L Warden [id number] [address] Insurance:MEDICARE RumburgDOB: [facility] [id number] [facility] Number: [place]ository [address]W[place] [id number]: (330) Date:2017-02-19 [phone] () 02/19/2017 Secondary Adhiana L Warden Insurance:ANTHEMPolic RumburgDOB: Community y Number: [id number] Hospital [id number] Repository Date:1080-35-49[address]QROJTKV, [place] [address]IR: 02/19/2017 Tertiary NOT GIVENUNK Warden Insurance:SELF PAY [facility] Number: Effective Repository Date:2017-02-19 01/29/2017 Dahiana L Primary Dahiana L Donovan [id number] [address] Insurance:[facility]ARE [facility] [id number] [facility] Number: Repository [place], [place] [id number]: (330) Date:2017-01-29 [phone] () 01/29/2017 Secondary Dahiana L Donovan [facility] y Number: [id number] Hospital [id number] Repository Date:6446-37-42JA [address]KK[address], [place] [address]JC: 01/29/2017 Tertiary NOT GIVENUNK Warden Insurance:SELF PAY [facility] Number: Effective Repository Date:2017-01-29
== END 2018-01-17 16:53 | disposition home or self-care (01) ==
PROVIDERS: Emergency Provider Emergency Medicine; Family Provider Family Medicine Geriatric Medicine; PCP Family Medicine Geriatric Medicine
DX: M79.604 Pain in right leg (principal); M79.671 Pain in right foot; I10 Essential (primary) hypertension; F41.9 Anxiety disorder, unspecified; Z79.82 Long term (current) use of aspirin; Z79.899 Other long term (current) drug therapy
CPT/HCPCS: 73590; 73630; 99282

== ENCOUNTER → 2018-03-23 15:22 | Outpatient (CLI) | payer MEDICARE, BC, SELFPAY ==
[2018-03-23 15:58] LABS: Absolute Lymphocyte Count 0.81 X10^3/ul (0.83-4.51); Absolute Neutrophil Count 5.4 X10^3/uL (2.0-7.7); Basophil# 0.01 X10^3/uL; Basophil% 0.1 % (0-1); Eosinophil# 0.09 X10^3/uL; Eosinophils% 1.3 % (0-5); Hematocrit 46.3 % (37-47); Hemoglobin 14.3 g/dl (12.0-15.0); Lymphocyte # 0.81 X10^3/ul (4.0); Mean Corp Hgb Conc 30.9 g/gl (32-36); Mean Corpuscular Hgb 34.4 pg (27.0-32.0); Mean Corpuscular Volume 111.3 fL (81-99); Mean Platelet Vol. 11.4 fl (6.2-12.0); Monocyte# 0.44 X10^3/uL; Monocyte% 6.5 % (0-10); Neutrophil # 5.39 X10^3/uL (2.7-7.7); Platelet Count 196 K/mm3 (150-450); RBC Distribution Width CV 12.3 % (11.6-14.6); RBC Distribution Width SD 48.4 fl (35.1-43.9); Red Blood Count 4.16 M/mm3 (4.2-5.4); White Blood Count 6.8 K/mm3 (4.4-11.0)
[2018-03-23 16:14] LABS: POSITIVE COUNT NO; POSITIVE DIFFERENTIAL NO; POSITIVE MORPHOLOGY NO
[2018-03-23 16:22] LABS: ALB/GLOB Ratio 0.6 RATIO (0.9-2.4); AST(SGOT) 21 U/L (15-37); Alanine Aminotransfer ALT/SGPT 11 U/L (13-56); Albumin, Serum 2.7 g/dL (3.2-5.0); Alkaline Phosphatase 111 U/L (45-117); Anion Gap 9 (5-15); BUN 18 mg/dL (7-18); BUN/Creat Ratio 16.5 RATIO (10-20); Calcium,Total 8.8 mg/dL (8.5-10.1); Chloride 106 mmol/L (98-107); Creatinine, Serum 1.09 mg/dL (0.55-1.02); EST Glomerular Filtration Rate 51 mL/min (>60); Est Glom Filt Rate - Afr Amer 62 mL/min (>60); Globulin 4.6 g/dL (2.2-4.2); Glucose 90 mg/dL (74-106); Potassium 3.7 mmol/L (3.5-5.1); Protein, Total 7.3 g/dL (6.4-8.2); Sodium Level 144 mmol/L (136-145); Thyroid Stim Hormone (TSH) 2.26 uIU/mL (0.358-3.74)
[2018-03-23 16:27] LABS: Vitamin D,25 Hydroxy 27.6 ng/mL (29.95-100.01)
== END ==
PROVIDERS: Family Provider Family Medicine Geriatric Medicine; PCP Family Medicine Geriatric Medicine; Visit Provider Family Medicine Geriatric Medicine
DX: I10 Essential (primary) hypertension (principal); E55.9 Vitamin D deficiency, unspecified
CPT/HCPCS: 36415; 80053; 82306; 84443; 85025

== ENCOUNTER → 2018-09-15 10:50 | Outpatient (CLI) | payer MEDICARE, BC, SELFPAY ==
[2018-09-15 16:30] LABS: Absolute Lymphocyte Count 0.92 X10^3/uL (0.83-4.51); Absolute Neutrophil Count 2.5 X10^3/uL (2.0-7.7); Basophil# 0.02 X10^3/uL; Basophil% 0.5 % (0-1); Eosinophil# 0.27 X10^3/uL; Eosinophils% 6.7 % (0-5); Hematocrit 42.5 % (37-47); Hemoglobin 13.3 g/dL (12.0-15.0); Lymphocyte # 0.92 X10^3/ul (4.0); Lymphocyte % 22.8 % (19-41); Mean Corp Hgb Conc 31.3 g/dL (32-36); Mean Corpuscular Hgb 34.6 pg (27.0-32.0); Mean Corpuscular Volume 110.7 fL (81-99); Mean Platelet Vol. 10.9 fl (6.2-12.0); Monocyte# 0.28 X10^3/uL; Monocyte% 6.9 % (0-10); NRBC Flagged by Analyzer 0 % (0-5); Neutrophil # 2.54 X10^3/uL (2.7-7.7); Neutrophil % 62.9 % (47-70); Platelet Count 162 K/mm3 (150-450); RBC Distribution Width CV 12.1 % (11.6-14.6); RBC Distribution Width SD 50.1 fl (35.1-43.9); Red Blood Count 3.84 M/mm3 (4.2-5.4)
[2018-09-15 16:50] LABS: ALB/GLOB Ratio 0.6 RATIO (0.9-2.4); AST(SGOT) 18 U/L (15-37); Alanine Aminotransfer ALT/SGPT 15 U/L (13-56); Albumin, Serum 2.4 g/dL (3.2-5.0); Alkaline Phosphatase 98 U/L (45-117); Anion Gap 4 (5-15); BUN 21 mg/dL (7-18); BUN/Creat Ratio 16.9 RATIO (10-20); Calcium,Total 8.5 mg/dL (8.5-10.1); Chloride 109 mmol/L (98-107); Creatinine, Serum 1.24 mg/dL (0.55-1.02); EST Glomerular Filtration Rate 44 mL/min (>60); Est Glom Filt Rate - Afr Amer 53 mL/min (>60); Globulin 3.9 g/dL (2.2-4.2); Glucose 185 mg/dL (74-106); Potassium 4.3 mmol/L (3.5-5.1); Protein, Total 6.3 g/dL (6.4-8.2); Sodium Level 142 mmol/L (136-145); Thyroid Stim Hormone (TSH) 1.39 uIU/mL (0.358-3.74)
[2018-09-15 16:52] LABS: Vitamin D,25 Hydroxy 32.7 ng/mL (29.95-100.01)
== END ==
PROVIDERS: Family Provider Family Medicine Geriatric Medicine; PCP Family Medicine Geriatric Medicine; Visit Provider Family Medicine Geriatric Medicine
DX: I10 Essential (primary) hypertension (principal); E55.9 Vitamin D deficiency, unspecified
CPT/HCPCS: 36415; 80053; 82306; 84443; 85025

== ENCOUNTER → 2018-11-16 11:30 | Outpatient (CLI) | payer MEDICARE, BC, SELFPAY ==
[2018-11-16 15:12] LABS: Erythrocyte Sedimentation Rate 9 mm/hr (0-30)
[2018-11-16 15:14] LABS: Absolute Lymphocyte Count 1.19 X10^3/uL (0.83-4.51); Basophil# 0.02 X10^3/uL; Basophil% 0.3 % (0-1); Eosinophil# 0.03 X10^3/uL; Eosinophils% 0.4 % (0-5); Hematocrit 43.3 % (37-47); Hemoglobin 13.8 g/dL (12.0-15.0); Lymphocyte # 1.19 X10^3/ul (4.0); Lymphocyte % 17.3 % (19-41); Mean Corp Hgb Conc 31.9 g/dL (32-36); Mean Corpuscular Hgb 35.2 pg (27.0-32.0); Mean Corpuscular Volume 110.5 fL (81-99); Mean Platelet Vol. 10.8 fl (6.2-12.0); Monocyte# 0.59 X10^3/uL; Monocyte% 8.6 % (0-10); NRBC Flagged by Analyzer 0 % (0-5); Neutrophil % 72.8 % (47-70); Platelet Count 169 K/mm3 (150-450); RBC Distribution Width CV 11.9 % (11.6-14.6); RBC Distribution Width SD 48.8 fl (35.1-43.9); Red Blood Count 3.92 M/mm3 (4.2-5.4); White Blood Count 6.9 K/mm3 (4.4-11.0)
[2018-11-16 15:32] LABS: CRP < 2.90 mg/L (0.0-3.0)
== END ==
PROVIDERS: Family Provider Family Medicine Geriatric Medicine; PCP Family Medicine Geriatric Medicine; Referring Provider Physician Assistant; Visit Provider Physician Assistant
DX: Z96.642 Presence of left artificial hip joint (principal)
CPT/HCPCS: 36415; 85025; 85652; 86140

== ENCOUNTER → 2018-12-17 13:06 | Outpatient (CLI) | payer MEDICARE, BC, SELFPAY ==
--- NOTE | 2018-12-17 13:00 | MRI_ITS ---
STUDY: MRI BRAIN WITHOUT CONTRAST REASON FOR EXAM: Female, 78 years old. Dementia and memory loss TECHNIQUE: Standardized multiplanar fat and water weighted pulse sequences were obtained. COMPARISON: None. FINDINGS: Mild cortical atrophy. There are multiple white matter hyperintensities, distributed throughout the deep white matter tracts of the cerebral hemispheres, consistent with moderate chronic white matter ischemic changes. Normal bilateral basal ganglia. Normal thalami. There is no extra-axial fluid accumulation. Normal flow voids within the major intracranial circulation suggesting patency by spin echo criteria. Normal sella turcica, pituitary gland, infundibular stalk, optic chiasm and hypothalamus. Normal tectal plate and pineal gland. There are chronic white matter ischemic changes of the wilmar. The midbrain and medulla are otherwise normal. Normal cerebellum. Normal basal cisterns. Normal bilateral temporal bones. Normal bilateral internal auditory canals. There are bilateral ocular lens implants with otherwise normal intraorbital contents. Normal visualized paranasal sinuses. Normal calvarium and skull base. Normal visualized soft tissue structures. Normal visualized upper cervical spine. MRI/Brain without Contrast IMPRESSION: Moderate microangiopathic white matter disease. Mild cortical atrophy. No evidence of acute infarct or hemorrhage. Electronically Signed: Jeramy Bojorquez MD at 18:07 EDT Tel , Service support ,
== END ==
PROVIDERS: Family Provider Family Medicine Geriatric Medicine; PCP Family Medicine Geriatric Medicine; Referring Provider Psychiatry & Neurology Neurology; Visit Provider Psychiatry & Neurology Neurology
DX: G25.9 Extrapyramidal and movement disorder, unspecified (principal)
CPT/HCPCS: 70551

== ENCOUNTER → 2019-03-23 13:23 | Outpatient (CLI) | payer MEDICARE, BC, SELFPAY ==
[2019-03-23 17:28] LABS: Absolute Lymphocyte Count 1.22 X10^3/uL (0.83-4.51); Absolute Neutrophil Count 3.4 X10^3/uL (2.0-7.7); Basophil# 0.03 X10^3/uL; Basophil% 0.5 % (0-1); Eosinophil# 0.52 X10^3/uL; Eosinophils% 9.4 % (0-5); Hematocrit 44.4 % (37-47); Hemoglobin 13.8 g/dL (12.0-15.0); Lymphocyte # 1.22 X10^3/ul (4.0); Lymphocyte % 21.9 % (19-41); Mean Corp Hgb Conc 31.1 g/dL (32-36); Mean Corpuscular Hgb 35.4 pg (27.0-32.0); Mean Corpuscular Volume 113.8 fL (81-99); Monocyte# 0.36 X10^3/uL; Monocyte% 6.5 % (0-10); NRBC Flagged by Analyzer 0 % (0-5); Neutrophil # 3.42 X10^3/uL (2.7-7.7); Neutrophil % 61.5 % (47-70); Platelet Count 167 K/mm3 (150-450); RBC Distribution Width CV 11.6 % (11.6-14.6); RBC Distribution Width SD 49.2 fl (35.1-43.9); White Blood Count 5.6 K/mm3 (4.4-11.0)
[2019-03-23 17:52] LABS: Vitamin D,25 Hydroxy 40.6 ng/mL (29.95-100.01)
[2019-03-23 18:03] LABS: ALB/GLOB Ratio 0.7 RATIO (0.9-2.4); AST(SGOT) 21 U/L (15-37); Alanine Aminotransfer ALT/SGPT 20 U/L (13-56); Albumin, Serum 2.6 g/dL (3.2-5.0); Alkaline Phosphatase 94 U/L (45-117); Anion Gap 3 (5-15); BUN 23 mg/dL (7-18); BUN/Creat Ratio 20.2 RATIO (10-20); Calcium,Total 8.8 mg/dL (8.5-10.1); Chloride 109 mmol/L (98-107); Creatinine, Serum 1.14 mg/dL (0.55-1.02); EST Glomerular Filtration Rate 49 mL/min (>60); Est Glom Filt Rate - Afr Amer 59 mL/min (>60); Globulin 3.9 g/dL (2.2-4.2); Glucose 120 mg/dL (74-106); Potassium 3.8 mmol/L (3.5-5.1); Protein, Total 6.5 g/dL (6.4-8.2); Sodium Level 142 mmol/L (136-145); Thyroid Stim Hormone (TSH) 1.88 uIU/mL (0.358-3.74)
== END ==
PROVIDERS: PCP Family Medicine Geriatric Medicine; Visit Provider Family Medicine Geriatric Medicine
DX: I10 Essential (primary) hypertension (principal); E55.9 Vitamin D deficiency, unspecified
CPT/HCPCS: 36415; 80053; 82306; 84443; 85025

== ENCOUNTER → 2019-10-06 14:53 | Outpatient (CLI) | payer MEDICARE, BC, SELFPAY ==
[2019-10-06 16:32] LABS: Absolute Lymphocyte Count 1.27 X10^3/uL (0.83-4.51); Absolute Neutrophil Count 3.4 X10^3/uL (2.0-7.7); Basophil# 0.03 X10^3/uL; Basophil% 0.6 % (0-1); Eosinophil# 0.33 X10^3/uL; Eosinophils% 6.1 % (0-5); Hematocrit 44.3 % (37-47); Hemoglobin 13.8 g/dL (12.0-15.0); Lymphocyte # 1.27 X10^3/ul (4.0); Lymphocyte % 23.3 % (19-41); Mean Corp Hgb Conc 31.2 g/dL (32-36); Mean Corpuscular Hgb 35.5 pg (27.0-32.0); Mean Corpuscular Volume 113.9 fL (81-99); Mean Platelet Vol. 10.9 fl (6.2-12.0); Monocyte# 0.41 X10^3/uL; Monocyte% 7.5 % (0-10); NRBC Flagged by Analyzer 0 % (0-5); Neutrophil # 3.39 X10^3/uL (2.7-7.7); Neutrophil % 62.3 % (47-70); Platelet Count 174 K/mm3 (150-450); RBC Distribution Width CV 11.9 % (11.6-14.6); RBC Distribution Width SD 50.1 fl (35.1-43.9); Red Blood Count 3.89 M/mm3 (4.2-5.4); White Blood Count 5.4 K/mm3 (4.4-11.0)
[2019-10-06 16:54] LABS: Vitamin D,25 Hydroxy 49.3 ng/mL
[2019-10-06 16:59] LABS: ALB/GLOB Ratio 0.6 RATIO (0.9-2.4); AST(SGOT) 20 U/L (15-37); Alanine Aminotransfer ALT/SGPT 20 U/L (13-56); Albumin, Serum 2.5 g/dL (3.2-5.0); Alkaline Phosphatase 87 U/L (45-117); Anion Gap 5 (5-15); BUN 19 mg/dL (7-18); Calcium,Total 8.6 mg/dL (8.5-10.1); Chloride 109 mmol/L (98-107); Creatinine, Serum 1.19 mg/dL (0.55-1.02); EST Glomerular Filtration Rate 46 mL/min (>60); Est Glom Filt Rate - Afr Amer 56 mL/min (>60); Glucose 98 mg/dL (74-106); Potassium 3.9 mmol/L (3.5-5.1); Protein, Total 6.5 g/dL (6.4-8.2); Sodium Level 142 mmol/L (136-145); Thyroid Stim Hormone (TSH) 2.21 uIU/mL (0.358-3.74)
== END ==
PROVIDERS: PCP Family Medicine Geriatric Medicine; Visit Provider Family Medicine Geriatric Medicine
DX: I10 Essential (primary) hypertension (principal); E55.9 Vitamin D deficiency, unspecified
CPT/HCPCS: 36415; 80053; 82306; 84443; 85025

== ENCOUNTER 2020-03-09 09:51 | Outpatient (RCR) | payer MEDICARE, BC, SELFPAY | END 2020-03-09 23:59 | LOC: IMMUN 09:51 | PROVIDERS: PCP Family Medicine Geriatric Medicine; Visit Provider Family Medicine | DX: Z23 Encounter for immunization (principal) | CPT/HCPCS: 0011A; 0012A ==

== ENCOUNTER → 2020-04-04 14:19 | Outpatient (CLI) | payer MEDICARE, BC, SELFPAY ==
[2020-04-04 17:57] LABS: Absolute Lymphocyte Count 1.19 X10^3/uL (0.83-4.51); Absolute Neutrophil Count 3.4 X10^3/uL (2.0-7.7); Basophil# 0.02 X10^3/uL; Basophil% 0.4 % (0-1); Eosinophil# 0.28 X10^3/uL; Eosinophils% 5.3 % (0-5); Hematocrit 45.3 % (37-47); Hemoglobin 14.2 g/dL (12.0-15.0); Lymphocyte # 1.19 X10^3/ul (4.0); Lymphocyte % 22.7 % (19-41); Mean Corp Hgb Conc 31.3 g/dL (32-36); Mean Corpuscular Hgb 35.4 pg (27.0-32.0); Mean Platelet Vol. 11.6 fl (6.2-12.0); Monocyte# 0.35 X10^3/uL; Monocyte% 6.7 % (0-10); NRBC Flagged by Analyzer 0 % (0-5); Neutrophil % 64.7 % (47-70); Platelet Count 170 K/mm3 (150-450); RBC Distribution Width SD 50.5 fl (35.1-43.9); Red Blood Count 4.01 M/mm3 (4.2-5.4); White Blood Count 5.3 K/mm3 (4.4-11.0)
[2020-04-04 18:12] LABS: Vitamin D,25 Hydroxy 46.3 ng/mL
[2020-04-04 18:15] LABS: ALB/GLOB Ratio 0.6 RATIO (0.9-2.4); AST(SGOT) 25 U/L (15-37); Alanine Aminotransfer ALT/SGPT 16 U/L (13-56); Albumin, Serum 2.5 g/dL (3.2-5.0); Alkaline Phosphatase 87 U/L (45-117); Anion Gap 5 (5-15); BUN 21 mg/dL (7-18); BUN/Creat Ratio 16.9 RATIO (10-20); Calcium,Total 8.4 mg/dL (8.5-10.1); Chloride 110 mmol/L (98-107); Creatinine, Serum 1.24 mg/dL (0.55-1.02); EST Glomerular Filtration Rate 44 mL/min (>60); Est Glom Filt Rate - Afr Amer 53 mL/min (>60); Globulin 3.9 g/dL (2.2-4.2); Glucose 112 mg/dL (74-106); Potassium 4.1 mmol/L (3.5-5.1); Protein, Total 6.4 g/dL (6.4-8.2); Sodium Level 143 mmol/L (136-145); Thyroid Stim Hormone (TSH) 1.74 uIU/mL (0.358-3.74)
== END ==
PROVIDERS: PCP Family Medicine Geriatric Medicine; Visit Provider Family Medicine Geriatric Medicine
DX: I10 Essential (primary) hypertension (principal); E55.9 Vitamin D deficiency, unspecified
CPT/HCPCS: 36415; 80053; 82306; 84443; 85025

== ENCOUNTER → 2020-09-19 10:59 | Outpatient (CLI) | payer MEDICARE, BC, SELFPAY ==
--- NOTE | 2020-09-19 11:03 | VDLE_ITS ---
Reason For Study: SWELLING RIGHT LEFT CFV is compressible, spontaneous, phasic, GSV is normal. competent and demonstrates normal CFV is compressible, spontaneous, phasic, augmentation. competent, and demonstrates normal Procedure augmentation. Exam performed in department. FV is compressible, spontaneous, phasic, A preliminary report was called and/or faxed competent and demonstrates normal to DR WORKMAN. augmentation. POP V is compressible, spontaneous, phasic, competent and demonstrates normal augmentation. T/P Trunk is compressible. PTV is compressible. LT PerV is compressible. VL/Venous Duplex US, Unilateral Interpretation Summary Deep veins of the left lower extremity are patent and compressible segmentally. There is no evidence of left lower extremity deep vein thrombosis. Valvular competence appears intac t within the proximal deep venous system on the left . The left great saphenous vein appears patent a nd compressible segmentally. Ordering Physician: Shahram Workman Referring Physician: JUAN CARLOS LEBLANC Performed By: Jenn Estrada, RDCS, RVT
== END ==
PROVIDERS: PCP Family Medicine Geriatric Medicine; Referring Provider Podiatrist; Visit Provider Podiatrist
DX: M79.89 Other specified soft tissue disorders (principal); I82.402 Acute embolism and thrombosis of unspecified deep veins of left lower extremity
CPT/HCPCS: 93971

== ENCOUNTER 2021-01-16 00:19 | Emergency (ER) | payer MEDICARE, BC, SELFPAY ==
[2021-01-16] VITALS (7 sets, daily range): BP systolic 166–200; BP diastolic 73–128; PULSE 68–76; RESP 20–22; TEMP 36.6; O2SAT 94–96; BMI 29.8
--- NOTE | 2021-01-16 00:26 | EKG12_ITS ---
Test Reason : WEAKNESS Blood Pressure : / mmHG Vent. Rate : 070 BPM Atrial Rate : 070 BPM P-R Int : 162 ms QRS Dur : 074 ms QT Int : 386 ms P-R-T Axes : 060 007 062 degrees QTc Int : 416 ms Sinus rhythm with Premature atrial complexes Nonspecific ST abnormality Abnormal ECG Confirmed by JACOB MARRERO, NOHEMI ([id number]), scientific editor HELIO CIFUENTES ([id number]) on 01/17/2021 8:25:24 AM Referred By: Confirmed By:NOHEMI JAMES MD
--- NOTE | 2021-01-16 00:26 | RAD_ITS ---
STUDY: X-RAY CHEST REASON FOR EXAM: Female, 81 years old. Hypertension TECHNIQUE: Portable, upright, AP chest radiograph COMPARISON: None. FINDINGS: The lungs are clear and expanded. There is no demonstrated pleural abnormality. Normal size heart. Right perihilar calcified lymph nodes. Normal visualized pulmonary arteries. Normal visualized aortic arch and descending thoracic aorta. There is no demonstrated abnormality of the visualized soft tissue structures of the upper abdomen. RAD/Chest 1 View (Portable) IMPRESSION: No acute abnormal cardiopulmonary finding. Electronically Signed: Sharan Betts MD at 1:08 EST Tel , Service support ,
--- NOTE | 2021-01-16 00:27 | EDS_ITS ---
HPI History of Present Illness Chief Complaint: Weakness Informant: patient, family and EMS Narrative Narrative: 81-year-old female was at home tonight when she states that she suddenly got globally weak. She thought it would pass but never did so EMS was called. Patient denies any speech vision arm or leg symptoms. She denied any palpitations or abdominal discomfort. No pain at all. She states now she feels pretty good just that she needs to urinate. Daughter states that seemed like she was breathing heavier than normal. [facility], [facility] Medical History (Updated 01/16/21 @ 01:[address] Jesús Villarreal DO) Arthritis Dementia Difficulty balancing Fatigue Hay fever High cholesterol History of bronchitis Hypertension Incontinence Severe headache Home Medications aspirin 81 mg PO DAILY@0800 09/01/14 [History Last Taken 01/29/17] atorvastatin 20 mg PO QHS 09/01/14 [History Last Taken 01/28/17] cholecalciferol (vitamin D3) [Vitamin D3] 50 mcg PO DAILY 01/16/21 [History Last Taken Unknown] donepezil 10 mg PO DAILY 01/16/21 [History Last Taken Unknown] levothyroxine 75 mcg PO DAILY 01/16/21 [History Last Taken Unknown] memantine 10 mg PO BID 01/16/21 [History Last Taken Unknown] paroxetine HCl 10 mg PO DAILY 01/16/21 [History Last Taken Unknown] sulfamethoxazole-trimethoprim 1 tab PO BID #10 tablet 01/16/21 [Rx Last Taken Unknown] Allergy/AdvReac Type Severity Reaction Status Date / Time No Known Allergies Allergy Verified 01/16/21 00:21 Surgical History (Updated 01/16/21 @ 00:46 by Chelsey Connolly) Hx of hysterectomy Social History Smoking Status: Never smoker alcohol intake: never ROS ROS ED ROS Narrative Generalized weakness Constitutional Constitutional ED: Denies chills, fever(s) or weight loss Eyes Eyes: Denies change in vision or diplopia ENT ENT ED: Denies ear pain, rhinorrhea or sore throat Cardiovascular Cardiovascular: Denies chest pain, orthopnea, palpitations or racing heartbeat Respiratory/Chest Respiratory/Chest: Denies cough, dyspnea or orthopnea Gastrointestinal Gastrointestinal: Denies abdominal pain, diarrhea, nausea or vomiting Genitourinary Genitourinary ED: Denies dysuria, hematuria or urinary frequency Musculoskeletal Musculoskeletal: Denies arthralgias, back pain, myalgias or neck pain Integumentary Denies abscess or rash Neurologic Neurologic: Reports weakness; Denies headache(s) or paresthesias Psychiatric Psychiatric: Denies anxiety, depression, suicidal ideation or suicidal thoughts Endocrine Endocrinology: Denies polydipsia, polyphagia or polyuria Allergic/Immunologic Allergic/Immunologic ED: Denies mouth swelling, tongue swelling or urticaria EXAM Physical Exam Const Vital Signs: 01/16/21 00:21 01/16/21 00:47 01/16/21 00:57 Temperature 98 F Temperature Source Temporal Pulse Rate 76 68 Respiratory Rate 20 H 22 H Respiratory Effort Normal Non-Labored Respiratory Pattern Normal Blood Pressure 166/128 H Blood Pressure Mean 140 Pulse Ox 94 96 Oxygen Delivery Method Room Air Room Air 01/16/21 00:59 01/16/21 01:27 01/16/21 01:30 Temperature Temperature Source Pulse Rate Respiratory Rate Respiratory Effort Respiratory Pattern Blood Pressure 186/85 H 200/88 H 188/85 H Blood Pressure Mean 118 125 119 Pulse Ox Oxygen Delivery Method 01/16/21 01:48 01/16/21 02:04 Temperature Temperature Source Pulse Rate Respiratory Rate Respiratory Effort Respiratory Pattern Blood Pressure 171/83 H 169/73 H Blood Pressure Mean 112 105 Pulse Ox Oxygen Delivery Method Positive well nourished, well developed and obese General Appearance ED: well developed Nutritional Appearance: obese HEENT Reports normocephalic, head/scalp atraumatic, TM's clear and moist mucous membranes Negative for trauma Tympanic Membrane ED: Yes TM's clear Eyes PERRL and EOMs intact bilaterally Neck no lymphadenopathy, supple and no JVD Resp normal respiratory effort and clear to auscultation bilaterally Cardio regular rate, regular rhythm and no murmurs GI normal to inspection, nondistended, normoactive bowel sounds and non-tender Palpation: soft Back/Spine no CVA tenderness and normal ROM Extremity normal to inspection General Extremety ED: Negative for edema General Extremity: Negative for edema Neuro oriented x3 and CN's II-XII intact bilaterally Sensorium / Orientation: alert Motor Exam: strength 5/5 throughout Psych mental status grossly normal Mood & Affect: Negative for depressed or tearful Skin no rashes or lesions noted and no wounds MDM MDM MDM Narrative Medical decision making narrative: Basic blood work was obtained and negative. Troponin high-sensitivity is 11. Creatinine at baseline of 1.17. Urinalysis shows 50-100 white cells 3+ bacteria and positive nitrates. This was sent for culture the patient received a dose of Bactrim and will see the prescription for same. My interpretation of the chest x-ray is no acute process. Patient has remained hypertensive though asymptomatic. She received a dose of hydralazine and is steadily come down. She was advised to monitor her blood pressure if it remains elevated follow-up with her primary care doctor or return if she develops symptoms. Patient states that she feels fine at the given time of discharge and family states that she seems back at her baseline. Lab Data Attestation: I reviewed the patient's lab results. Labs: Laboratory Results - last 24 hr 01/16/21 01/16/21 01/16/21 00:26 00:26 00:45 WBC 5.2 RBC 3.91 L Hgb 14.0 Hct 43.1 MCV 110.2 H MCH 35.8 H MCHC 32.5 RDW Std Deviation 48.6 H RDW Coeff of Bhupinder 11.9 Plt Count 161 MPV 9.9 Immature Gran % (Auto) 0.200 Neut % (Auto) 53.5 Lymph % (Auto) 30.6 Crane % (Auto) 9.3 Eos % (Auto) 6.0 H Baso % (Auto) 0.4 Absolute Neuts (auto) 2.8 Absolute Lymphs (auto) 1.58 Nucleated RBC % 0 Sodium 142 Potassium 4.0 Chloride 108 H Carbon Dioxide 31.0 Anion Gap 3 L BUN 18 Creatinine 1.17 H Estim Creat Clear Calc 32.78 Est GFR (MDRD) Af Amer 57 L Est GFR (MDRD) Non-Af 47 L BUN/Creatinine Ratio 15.4 Glucose 107 H Calcium 8.9 Total Bilirubin 0.30 AST 29 ALT 21 Alkaline Phosphatase 95 Troponin I High Sens 11 Total Protein 7.0 Albumin 2.5 L Globulin 4.5 H Albumin/Globulin Ratio 0.6 L Urine Color Yellow Urine Clarity Clear Urine pH 6.5 Ur Specific Smyer 1.010 Urine Protein Negative Urine Glucose (UA) Normal Urine Ketones Negative Urine Occult Blood 25 H Urine Nitrite Positive H Urine Bilirubin Negative Urine Urobilinogen Normal Ur Leukocyte Esterase 500 H Urine RBC 0-5 SEEN Urine WBC 50-100 SEEN Ur Squamous Epith Cells 0-5 SEEN Urine Bacteria 3+ Urine Mucus 0 SEEN Radiography Diagnostic Testing: Clinical Impression(s) from Imaging Studies Chest X-Ray 01/16/21 00:26 IMPRESSION: No acute abnormal cardiopulmonary finding. Electronically Signed: Sharan Betts MD at 1:08 EST Tel , Service support , EKG Initial EKG: Attestation: I personally reviewed and interpreted this EKG as follows: Comments: Sinus rhythm with a ventricular rate of 70 bpm noted PAC Discharge Plan Triage Chief Complaint: Weakness ED Provider: Jesús Villarreal Dx/Rx/DC Orders Clinical Impression: Acute cystitis, Generalized weakness, Hypertension Instructions: ED High Blood Pressure Hypertension, ED CYSTITIS Female Adult Prescriptions: New sulfamethoxazole-trimethoprim [sulfamethoxazole-trimethoprim] 1 TABLET tablet 1 tab PO BID Qty: 10 RF: 0 No Action aspirin 81 MG tablet,chewable 81 mg PO DAILY@0800 RF: 0 atorvastatin 20 MG tablet 20 mg PO QHS RF: 0 paroxetine HCl 10 mg tablet 10 mg PO DAILY RF: 0 donepezil 10 mg tablet 10 mg PO DAILY RF: 0 levothyroxine 75 mcg tablet 75 mcg PO DAILY RF: 0 memantine 10 mg tablet 10 mg PO BID RF: 0 cholecalciferol (vitamin D3) [Vitamin D3] 50 mcg (2,000 unit) Capsule 50 mcg PO DAILY RF: 0 Primary Care Provider: Kwan Murphy Chi Referrals: Kwan Murphy Chi, MD [Primary Care Provider] - 3-5 Days if not improving Disposition Disposition: Home, Self Care
[2021-01-16 00:35] LABS: Absolute Lymphocyte Count 1.58 X10^3/uL (0.83-4.51); Absolute Neutrophil Count 2.8 X10^3/uL (2.0-7.7); Basophil# 0.02 X10^3/uL; Basophil% 0.4 % (0-1); Eosinophil# 0.31 X10^3/uL; Hematocrit 43.1 % (37-47); Lymphocyte # 1.58 X10^3/ul (0.83-4.51); Lymphocyte % 30.6 % (19-41); Mean Corp Hgb Conc 32.5 g/dL (32-36); Mean Corpuscular Hgb 35.8 pg (27.0-32.0); Mean Corpuscular Volume 110.2 fL (81-99); Mean Platelet Vol. 9.9 fl (6.2-12.0); Monocyte# 0.48 X10^3/uL; Monocyte% 9.3 % (0-10); NRBC Flagged by Analyzer 0 % (0-5); Neutrophil # 2.77 X10^3/uL (2.7-7.7); Neutrophil % 53.5 % (47-70); Platelet Count 161 K/mm3 (150-450); RBC Distribution Width CV 11.9 % (11.6-14.6); RBC Distribution Width SD 48.6 fl (35.1-43.9); Red Blood Count 3.91 M/mm3 (4.2-5.4); White Blood Count 5.2 K/mm3 (4.4-11.0)
[2021-01-16 00:52] LABS: Mucous, Urine 0 SEEN /hpf (<or=2+)
[2021-01-16 00:53] LABS: Color, Urine Yellow (Yellow); Glucose, Dipstick Normal (Normal); Ketone-Dipstick Negative (Negative); Leukocyte Esterase-Dipstick 500 /ul (Negative); Nitrite-Dipstick Positive (Negative); Occult Blood-Urine 25 /ul (Negative); Protein-Dipstick Negative (Negative); Urine Bilirubin Dipstick Negative (Negative); Urine Clarity Clear (Clear); Urine Urobilinogen Normal (Normal); Urine pH 6.5 (5.0 - 8.0)
[2021-01-16 00:53] LABS: ALB/GLOB Ratio 0.6 RATIO (0.9-2.4); AST(SGOT) 29 U/L (15-37); Alanine Aminotransfer ALT/SGPT 21 U/L (13-56); Albumin, Serum 2.5 g/dL (3.2-5.0); Alkaline Phosphatase 95 U/L (45-117); Anion Gap 3 (5-15); BUN 18 mg/dL (7-18); BUN/Creat Ratio 15.4 RATIO (10-20); Calcium,Total 8.9 mg/dL (8.5-10.1); Chloride 108 mmol/L (98-107); Creatinine, Serum 1.17 mg/dL (0.55-1.02); EST Glomerular Filtration Rate 47 mL/min (>60); Est Glom Filt Rate - Afr Amer 57 mL/min (>60); Estimated Creatinine Clearance 32.78 ml/min; Globulin 4.5 g/dL (2.2-4.2); Glucose 107 mg/dL (74-106); Sodium Level 142 mmol/L (136-145); Troponin-I HS 11 pg/mL (3.0-54.0)
[2021-01-16 01:03] LABS: Red Blood Cells-Urine 0-5 SEEN /hpf (0-5); Squamous Epithelial Cells - UA 0-5 SEEN /hpf (5-10); White Blood Cells 50-100 SEEN /hpf (0-5)
[2021-01-16 01:04] LABS: Bacteria 3+ /hpf (None Seen)
[2021-01-16] MEDS: Smz/Tmp Ds Tablet 1 TABLET PO (01:34)
[2021-01-16] MEDS: hydrALAZINE 20 MG/ML Vial 10 MG IV (01:34)
== END 2021-01-16 02:20 | disposition home or self-care (01) ==
PROVIDERS: Emergency Provider Emergency Medicine; PCP Family Medicine Geriatric Medicine
DX: N30.00 Acute cystitis without hematuria (principal); R53.1 Weakness; I10 Essential (primary) hypertension; F03.90 Unspecified dementia, unspecified severity, without behavioral disturbance, psychotic disturbance, mood disturbance, and anxiety; E78.00 Pure hypercholesterolemia, unspecified; M19.90 Unspecified osteoarthritis, unspecified site; E66.9 Obesity, unspecified; Z79.82 Long term (current) use of aspirin; Z79.899 Other long term (current) drug therapy
CPT/HCPCS: 71045; 80053; 81001; 84484; 85025; 87077; 87086; 87088; 87186; 93005; 96374; 99285; A4216

== ENCOUNTER 2021-04-10 13:22 | Outpatient (CLI) | payer MEDICARE, BC, SELFPAY ==
[2021-04-10 16:59] LABS: Absolute Lymphocyte Count 1.23 X10^3/uL (0.83-4.51); Absolute Neutrophil Count 3.6 X10^3/uL (2.0-7.7); Basophil# 0.02 X10^3/uL; Basophil% 0.4 % (0-1); Hematocrit 43.9 % (37-47); Hemoglobin 14.2 g/dL (12.0-15.0); Lymphocyte # 1.23 X10^3/ul (0.83-4.51); Lymphocyte % 21.6 % (19-41); Mean Corp Hgb Conc 32.3 g/dL (32-36); Mean Corpuscular Hgb 36.2 pg (27.0-32.0); Mean Platelet Vol. 10.9 fl (6.2-12.0); Monocyte# 0.42 X10^3/uL; Monocyte% 7.4 % (0-10); NRBC Flagged by Analyzer 0 % (0-5); Neutrophil # 3.62 X10^3/uL (2.7-7.7); Neutrophil % 63.4 % (47-70); Platelet Count 177 K/mm3 (150-450); RBC Distribution Width CV 11.9 % (11.6-14.6); Red Blood Count 3.92 M/mm3 (4.2-5.4); White Blood Count 5.7 K/mm3 (4.4-11.0)
[2021-04-10 17:22] LABS: Albumin, Serum 2.5 g/dL (3.2-5.0); BUN 17 mg/dL (7-18); BUN/Creat Ratio 15.3 RATIO (10-20); Creatinine, Serum 1.11 mg/dL (0.55-1.02); EST Glomerular Filtration Rate 50 mL/min (>60); Est Glom Filt Rate - Afr Amer 60 mL/min (>60); Globulin 4.1 g/dL (2.2-4.2); Glucose 97 mg/dL (74-106); Protein, Total 6.6 g/dL (6.4-8.2)
[2021-04-10 17:23] LABS: ALB/GLOB Ratio 0.6 RATIO (0.9-2.4); AST(SGOT) 23 U/L (15-37); Alanine Aminotransfer ALT/SGPT 19 U/L (13-56); Alkaline Phosphatase 88 U/L (45-117); Anion Gap 5 (5-15); Calcium,Total 8.4 mg/dL (8.5-10.1); Chloride 109 mmol/L (98-107); Potassium 3.6 mmol/L (3.5-5.1); Sodium Level 144 mmol/L (136-145); Thyroid Stim Hormone (TSH) 2.58 uIU/mL (0.358-3.74)
== END 2021-04-10 23:59 | disposition home or self-care (01) ==
LOC: POLAB3 13:24
PROVIDERS: PCP Family Medicine Geriatric Medicine; Visit Provider Family Medicine Geriatric Medicine
DX: E55.9 Vitamin D deficiency, unspecified (principal); I10 Essential (primary) hypertension; N39.0 Urinary tract infection, site not specified
CPT/HCPCS: 36415; 80053; 82306; 84443; 85025; 87086; 87088; 87186

== ENCOUNTER → 2021-10-24 | Outpatient (CLI) | payer MEDICARE, BC, SELFPAY ==
[2021-10-24 16:57] LABS: Absolute Lymphocyte Count 1.17 X10^3/uL (0.83-4.51); Basophil# 0.02 X10^3/uL; Basophil% 0.3 % (0-1); Eosinophil# 0.17 X10^3/uL; Eosinophils% 2.9 % (0-5); Hemoglobin 13.7 g/dL (12.0-15.0); Lymphocyte # 1.17 X10^3/ul (0.83-4.51); Lymphocyte % 20.2 % (19-41); Mean Corp Hgb Conc 32.6 g/dL (32-36); Mean Corpuscular Hgb 37.2 pg (27.0-32.0); Mean Corpuscular Volume 114.1 fL (81-99); Mean Platelet Vol. 10.1 fl (6.2-12.0); Monocyte# 0.45 X10^3/uL; Monocyte% 7.8 % (0-10); NRBC Flagged by Analyzer 0 % (0-5); Neutrophil # 3.98 X10^3/uL (2.7-7.7); Neutrophil % 68.6 % (47-70); Platelet Count 162 K/mm3 (150-450); RBC Distribution Width CV 11.8 % (11.6-14.6); RBC Distribution Width SD 50.4 fl (35.1-43.9); Red Blood Count 3.68 M/mm3 (4.2-5.4); White Blood Count 5.8 K/mm3 (4.4-11.0)
[2021-10-24 17:19] LABS: ALB/GLOB Ratio 0.7 RATIO (0.9-2.4); AST(SGOT) 22 U/L (15-37); Alanine Aminotransfer ALT/SGPT 18 U/L (13-56); Albumin, Serum 2.6 g/dL (3.2-5.0); Alkaline Phosphatase 70 U/L (45-117); Anion Gap 5 (5-15); BUN 20 mg/dL (7-18); BUN/Creat Ratio 19.2 RATIO (10-20); Chloride 110 mmol/L (98-107); Creatinine, Serum 1.04 mg/dL (0.55-1.02); EST Glomerular Filtration Rate 54 mL/min (>60); Est Glom Filt Rate - Afr Amer 65 mL/min (>60); Globulin 3.8 g/dL (2.2-4.2); Glucose 90 mg/dL (74-106); Potassium 4.1 mmol/L (3.5-5.1); Protein, Total 6.4 g/dL (6.4-8.2); Sodium Level 145 mmol/L (136-145); Thyroid Stim Hormone (TSH) 1.77 uIU/mL (0.358-3.74)
[2021-10-24 17:54] LABS: Vitamin D,25 Hydroxy 44.1 ng/mL
== END | disposition home or self-care (01) ==
LOC: POLAB3 14:14
PROVIDERS: PCP Family Medicine Geriatric Medicine; Visit Provider Family Medicine Geriatric Medicine
DX: I10 Essential (primary) hypertension (principal); E55.9 Vitamin D deficiency, unspecified
CPT/HCPCS: 36415; 80053; 82306; 84443; 85025

== ENCOUNTER → 2021-11-06 | Outpatient (CLI) | payer MEDICARE, BC, SELFPAY ==
--- NOTE | 2021-11-06 15:48 | RAD_ITS ---
STUDY: X-RAY - UNILATERAL RIBS ( LEFT ) WITH CHEST REASON FOR EXAM: Female, 81 years old. RIB PAIN TECHNIQUE - RIBS: 4 view(s) of the ribs. TECHNIQUE - CHEST: Single PA view of the chest. COMPARISON: 01/16/2021 FINDINGS - RIBS: There is demineralization of the osseous structures which diminishes the diagnostic sensitivity of this examination. Nondisplaced healing sixth and seventh left rib fractures FINDINGS - CHEST: The lungs are clear and expanded. There is no demonstrated pleural abnormality. Normal size heart. Normal mediastinum and timothy. Normal visualized pulmonary arteries. Normal visualized aortic arch and descending thoracic aorta. There are diffuse degenerative changes of the visualized thoracic spine. There is degenerative osteoarthritis of the bilateral shoulders. There is no demonstrated abnormality of the visualized soft tissue structures of the upper abdomen. RAD/Ribs Uni Min 3V w/PA Chest IMPRESSION: RIBS: Demineralization of the osseous structures with nondisplaced healing left lateral sixth and seventh rib fractures CHEST: No acute pulmonary process Electronically Signed: Masood Ramírez MD at 8:18 EDT ,
== END | disposition home or self-care (01) ==
LOC: RAD 15:30
PROVIDERS: PCP Family Medicine Geriatric Medicine; Referring Provider Family Medicine Geriatric Medicine; Visit Provider Family Medicine Geriatric Medicine
DX: R07.89 Other chest pain (principal)
CPT/HCPCS: 71101

== ENCOUNTER → 2022-04-24 | Outpatient (CLI) | payer MEDICARE, BC, SELFPAY ==
--- NOTE | 2022-04-24 16:29 | RAD_ITS ---
STUDY: X-RAY - LEFT HAND REASON FOR EXAM: Female, 82 years old. Left hand pain. No associated wrist pain. TECHNIQUE: 3 view(s) of the hand. COMPARISON: None. FINDINGS: Generalized osteopenia. There are healed fractures of the distal radius and ulna. There is joint space narrowing of the radiocarpal articulation consistent with degenerative arthrosis. There is a positive ulnar variant of the distal radioulnar articulation. Normal visualized carpal bones. Normal carpal articulations Normal carpometacarpal articulation of the thumb. Normal second through fifth carpometacarpal joints. Normal metacarpi. Normal metacarpophalangeal joint of the thumb. There is degenerative arthrosis of the interphalangeal joint of the thumb with articular joint space narrowing. Normal proximal and distal phalanges of the thumb. Normal metacarpophalangeal joints of the second through fifth fingers. There is diffuse articular joint space narrowing of the proximal and distal interphalangeal joints of the second through fifth fingers, but without erosive changes or periarticular soft tissue swelling. Normal phalanges of the second through fifth fingers. The soft tissue structures are unremarkable. RAD/Hand Min 3 Views IMPRESSION: 1. No acute fracture or dislocation. 2. Remote fractures of the distal radius and ulna. 3. Osteopenia and degenerative changes of the hand and wrist. Electronically Signed: Rangel Vaughn DO at 16:53 EST Reading Location ID and State: [id number] Tel [phone], Service support ,
[2022-04-24 17:36] LABS: Absolute Lymphocyte Count 1.03 X10^3/uL (0.83-4.51); Absolute Neutrophil Count 4.5 X10^3/uL (2.0-7.7); Basophil# 0.02 X10^3/uL; Basophil% 0.3 % (0-1); Eosinophil# 0.17 X10^3/uL; Eosinophils% 2.8 % (0-5); Hematocrit 43.8 % (37-47); Hemoglobin 13.8 g/dL (12.0-15.0); Lymphocyte # 1.03 X10^3/ul (0.83-4.51); Lymphocyte % 16.7 % (19-41); Mean Corp Hgb Conc 31.5 g/dL (32-36); Mean Corpuscular Hgb 35.6 pg (27.0-32.0); Mean Corpuscular Volume 112.9 fL (81-99); Mean Platelet Vol. 10.7 fl (6.2-12.0); Monocyte# 0.45 X10^3/uL; Monocyte% 7.3 % (0-10); NRBC Flagged by Analyzer 0 % (0-5); Neutrophil # 4.46 X10^3/uL (2.7-7.7); Neutrophil % 72.6 % (47-70); Platelet Count 174 K/mm3 (150-450); RBC Distribution Width CV 11.7 % (11.6-14.6); RBC Distribution Width SD 48.8 fl (35.1-43.9); Red Blood Count 3.88 M/mm3 (4.2-5.4); White Blood Count 6.2 K/mm3 (4.4-11.0)
[2022-04-24 18:13] LABS: Vitamin D,25 Hydroxy 64.9 ng/mL
[2022-04-24 18:24] LABS: ALB/GLOB Ratio 0.7 RATIO (0.9-2.4); AST(SGOT) 23 U/L (15-37); Alanine Aminotransfer ALT/SGPT 17 U/L (13-56); Albumin, Serum 2.5 g/dL (3.2-5.0); Alkaline Phosphatase 71 U/L (45-117); Anion Gap 6 (5-15); BUN 21 mg/dL (7-18); BUN/Creat Ratio 18.6 RATIO (10-20); Calcium,Total 8.7 mg/dL (8.5-10.1); Chloride 109 mmol/L (98-107); Creatinine, Serum 1.13 mg/dL (0.55-1.02); EST Glomerular Filtration Rate 49 mL/min (>60); Est Glom Filt Rate - Afr Amer 59 mL/min (>60); Globulin 3.8 g/dL (2.2-4.2); Glucose 115 mg/dL (74-106); Potassium 3.9 mmol/L (3.5-5.1); Protein, Total 6.3 g/dL (6.4-8.2); Sodium Level 144 mmol/L (136-145); Thyroid Stim Hormone (TSH) 3.73 uIU/mL (0.358-3.74)
== END | disposition home or self-care (01) ==
PROVIDERS: PCP Family Medicine Geriatric Medicine; Visit Provider Family Medicine Geriatric Medicine
DX: I10 Essential (primary) hypertension (principal); E55.9 Vitamin D deficiency, unspecified; M79.642 Pain in left hand
CPT/HCPCS: 36415; 73130; 80053; 82306; 84443; 85025

== ENCOUNTER → 2022-09-04 | Outpatient (CLI) | payer MEDICARE, BC, SELFPAY ==
--- NOTE | 2022-09-04 14:30 | RAD_ITS ---
HISTORY: CHF. TECHNIQUE: XR Chest 2 Views. COMPARISON: 11/06/2021. FINDINGS: CARDIOMEDIASTINAL BORDERS: Cardiac silhouette within normal limits in size. Mediastinal contour unremarkable with calcification of the aorta. LUNGS: Chronic linear scarring in the lung bases. PLEURA: No pleural effusion or pneumothorax seen. OSSEOUS STRUCTURES: Degenerative change. RAD/Chest PA and Lateral IMPRESSION: No acute cardiopulmonary process identified. Electronically Signed: Elisa Frazier MD at 15:34 EDT ,
[2022-09-04 16:44] LABS: Absolute Lymphocyte Count 0.95 X10^3/uL (0.83-4.51); Absolute Neutrophil Count 4.5 X10^3/uL (2.0-7.7); Basophil# 0.02 X10^3/uL; Basophil% 0.3 % (0-1); Eosinophil# 0.15 X10^3/uL; Eosinophils% 2.5 % (0-5); Hematocrit 43.7 % (37-47); Hemoglobin 13.6 g/dL (12.0-15.0); Lymphocyte # 0.95 X10^3/ul (0.83-4.51); Lymphocyte % 15.5 % (19-41); Mean Corp Hgb Conc 31.1 g/dL (32-36); Mean Corpuscular Hgb 35.7 pg (27.0-32.0); Mean Corpuscular Volume 114.7 fL (81-99); Mean Platelet Vol. 10.8 fl (6.2-12.0); Monocyte# 0.43 X10^3/uL; NRBC Flagged by Analyzer 0 % (0-5); Neutrophil # 4.54 X10^3/uL (2.7-7.7); Neutrophil % 74.2 % (47-70); Platelet Count 177 K/mm3 (150-450); RBC Distribution Width CV 11.9 % (11.6-14.6); RBC Distribution Width SD 51.3 fl (35.1-43.9); Red Blood Count 3.81 M/mm3 (4.2-5.4); White Blood Count 6.1 K/mm3 (4.4-11.0)
[2022-09-04 17:10] LABS: ALB/GLOB Ratio 0.6 RATIO (0.9-2.4); AST(SGOT) 19 U/L (15-37); Alanine Aminotransfer ALT/SGPT 15 U/L (13-56); Albumin, Serum 2.4 g/dL (3.2-5.0); Alkaline Phosphatase 79 U/L (45-117); Anion Gap 4 (5-15); BUN 18 mg/dL (7-18); BUN/Creat Ratio 13.4 RATIO (10-20); Calcium,Total 8.5 mg/dL (8.5-10.1); Chloride 109 mmol/L (98-107); Creatinine, Serum 1.34 mg/dL (0.55-1.02); EST Glomerular Filtration Rate 40 mL/min (>60); Est Glom Filt Rate - Afr Amer 48 mL/min (>60); Glucose 166 mg/dL (74-106); Potassium 3.8 mmol/L (3.5-5.1); Protein, Total 6.4 g/dL (6.4-8.2); Sodium Level 142 mmol/L (136-145); Thyroid Stim Hormone (TSH) 1.92 uIU/mL (0.358-3.74)
[2022-09-04 17:11] LABS: BNP,B-Type NATRIURETIC PEPTIDE 40.4 pg/mL (0-100)
== END | disposition home or self-care (01) ==
PROVIDERS: PCP Family Medicine Geriatric Medicine; Referring Provider Family Medicine Geriatric Medicine; Visit Provider Family Medicine Geriatric Medicine
DX: I50.9 Heart failure, unspecified (principal); R06.02 Shortness of breath; R53.83 Other fatigue
CPT/HCPCS: 36415; 71046; 80053; 83880; 84443; 85025

== ENCOUNTER → 2022-09-12 | Outpatient (CLI) | payer MEDICARE, BC, SELFPAY ==
--- NOTE | 2022-09-12 13:50 | ECHOD_ITS ---
Reason For Study: DYSPNEA Procedure This was a 2D Doppler, Color Flow transthoracic echocardiogram. Technically difficult study due to combative patient. Exam performed in department. Left Ventricle Normal LV size. Left ventricular systolic function is normal. The estimated ejection fraction is 60 %. Stage 1 diastolic dysfunction. No regional wall motion abnormalities noted. Right Ventricle Normal RV size. Normal systolic function. Atria Normal left atrium. Normal right atrium. Mitral Valve Normal mitral valve. Tricuspid Valve Normal tricuspid valve. Mild tricuspid valve insufficiency. Pulmonary artery systolic pressure is 34 mmHg. Aortic Valve Normal aortic valve. Pulmonic Valve Normal pulmonic valve. Great Vessels Normal aortic root. The pulmonary artery is normal size. Pericardium/Pleural No pericardial effusion. MMode/2D Measurements & Calculations LAV(MOD-sp4): 38.0 ml LVAd ap4: 16.8 cm2 SV(MOD-sp4): 25.7 ml LVLd ap4: 6.7 cm EDV(MOD-sp4): 34.3 ml EDV(sp4-el): 35.7 ml LVAs ap4: 7.6 cm2 LVLs ap4: 5.6 cm ESV(MOD-sp4): 8.5 ml ESV(sp4-el): 8.7 ml EF(MOD-sp4): 75.1 % EF(sp4-el): 75.6 % SV(sp4-el): 27.0 ml LA A4 area: 16.1 cm2 LA dimension(2D): 3.6 cm RA A4 area: 8.8 cm2 Time Measurements MV dec time: 0.38 sec Doppler Measurements & Calculations MV E max jw: 73.1 cm/sec Lat Peak E' Jw: 7.2 cm/sec Med Peak E' Jw: 7.8 cm/sec MV A max jw: 106.4 cm/sec E/E' lat: 10.2 E/E' med: 9.4 MV E/A: 0.69 MV V2 max: 99.4 cm/sec MV dec slope: 196.1 cm/sec2 Ao V2 max: 162.1 cm/sec MV max P.0 mmHg Ao max P.5 mmHg MV V2 mean: 53.1 cm/sec Ao V2 mean: 110.9 cm/sec MV mean P.3 mmHg Ao mean P.7 mmHg MV V2 VTI: 34.0 cm Ao V2 VTI: 32.1 cm AV (velocity ratio): 0.68 LV V1 max: 103.0 cm/sec TR max jw: 271.8 cm/sec LV V1 max P.3 mmHg TR max P.5 mmHg LV V1 mean P.2 mmHg LV V1 mean: 70.0 cm/sec LV V1 VTI: 21.9 cm ECHO/Echo Complete Interpretation Summary Normal LV size. Left ventricular systolic function is normal. The estimated ejection fraction is 60 %. Stage 1 diastolic dysfunction. Ordering Physician: Kwan Murphy Chi Referring Physician: Kwan Murphy Chi Performed By: Mónica Mcclain RCS
== END | disposition home or self-care (01) ==
LOC: CVS 13:46
PROVIDERS: PCP Family Medicine Geriatric Medicine; Referring Provider Family Medicine Geriatric Medicine; Visit Provider Family Medicine Geriatric Medicine
DX: R06.09 Other forms of dyspnea (principal)
CPT/HCPCS: 93306

== ENCOUNTER → 2022-10-02 | Outpatient (CLI) | payer MEDICARE, BC, SELFPAY ==
--- NOTE | 2022-10-02 13:27 | CPS ---
PATIENT WAS UNABLE TO MAINTAIN MOUTH SEAL DURING PULMONARY FUNCTION TESTING DESPITE MULTIPLE EFFORTS. WE WERE ABLE TO OBTAIN REPRODUCIBLE PRE/POST SPIROMETRY VALUES. PATIENT GAVE GOOD EFFORT FOR TESTING.
--- NOTE | 2022-10-03 05:58 | SPIR ---
Spirometry PFT Testing Spirometry PFT Testing: SPIROMETRY TEST INTERPRETATION Brief HPI: Patient is an 82-year-old female, currently under the care of Dr. Murphy, who presents to [facility] for complete pulmonary function tests secondary to diagnosis of dyspnea. Respiratory therapist reports good effort and reproducible results. Interpretation: Forced expiration spirometry shows no large airways obstructive ventilatory defect with an FEV1 of 46% predicted. There is no significant bronchodilator response by strict ATS criteria. Spirograms are of poor quality and and show exhalation for only 1-1/2 to 2 seconds, likely underestimating FVC. The respiratory flow volume loop shows a normal pattern. No previous pulmonary function tests were available for review. Impression: Spirometry suggestive of possible restrictive ventilatory defect. Consider complete pulmonary function test for further investigation
== END | disposition home or self-care (01) ==
PROVIDERS: PCP Family Medicine Geriatric Medicine; Referring Provider Family Medicine Geriatric Medicine; Visit Provider Family Medicine Geriatric Medicine
DX: R06.02 Shortness of breath (principal)
CPT/HCPCS: 94060

== ENCOUNTER → 2022-11-04 | Outpatient (CLI) | payer MEDICARE, BC, SELFPAY ==
[2022-11-04 15:49] LABS: Absolute Lymphocyte Count 0.94 X10^3/uL (0.83-4.51); Absolute Neutrophil Count 3.7 X10^3/uL (2.0-7.7); Basophil# 0.02 X10^3/uL; Basophil% 0.4 % (0-1); Eosinophil# 0.19 X10^3/uL; Eosinophils% 3.6 % (0-5); Hematocrit 42.8 % (37-47); Hemoglobin 13.6 g/dL (12.0-15.0); Lymphocyte # 0.94 X10^3/ul (0.83-4.51); Mean Corp Hgb Conc 31.8 g/dL (32-36); Mean Corpuscular Hgb 36.4 pg (27.0-32.0); Mean Corpuscular Volume 114.4 fL (81-99); Mean Platelet Vol. 10.2 fl (6.2-12.0); Monocyte# 0.38 X10^3/uL; Monocyte% 7.3 % (0-10); NRBC Flagged by Analyzer 0 % (0-5); Neutrophil # 3.68 X10^3/uL (2.7-7.7); Neutrophil % 70.5 % (47-70); Platelet Count 150 K/mm3 (150-450); RBC Distribution Width CV 11.9 % (11.6-14.6); RBC Distribution Width SD 50.5 fl (35.1-43.9); Red Blood Count 3.74 M/mm3 (4.2-5.4); White Blood Count 5.2 K/mm3 (4.4-11.0)
[2022-11-04 16:03] LABS: Vitamin D,25 Hydroxy 65.6 ng/mL
[2022-11-04 16:10] LABS: ALB/GLOB Ratio 0.6 RATIO (0.9-2.4); AST(SGOT) 19 U/L (15-37); Alanine Aminotransfer ALT/SGPT 17 U/L (13-56); Albumin, Serum 2.3 g/dL (3.2-5.0); Alkaline Phosphatase 81 U/L (45-117); Anion Gap 2 (5-15); BUN 17 mg/dL (7-18); BUN/Creat Ratio 15.2 RATIO (10-20); Calcium,Total 8.4 mg/dL (8.5-10.1); Chloride 110 mmol/L (98-107); Creatinine, Serum 1.12 mg/dL (0.55-1.02); EST Glomerular Filtration Rate 49 mL/min (>60); Est Glom Filt Rate - Afr Amer 60 mL/min (>60); Globulin 3.8 g/dL (2.2-4.2); Glucose 155 mg/dL (74-106); Potassium 3.6 mmol/L (3.5-5.1); Protein, Total 6.1 g/dL (6.4-8.2); Sodium Level 144 mmol/L (136-145); Thyroid Stim Hormone (TSH) 2.28 uIU/mL (0.358-3.74)
== END | disposition home or self-care (01) ==
PROVIDERS: PCP Family Medicine Geriatric Medicine; Visit Provider Family Medicine Geriatric Medicine
DX: I10 Essential (primary) hypertension (principal); E55.9 Vitamin D deficiency, unspecified
CPT/HCPCS: 36415; 80053; 82306; 84443; 85025

== ENCOUNTER → 2022-12-11 | Outpatient (CLI) | payer MEDICARE, BC, SELFPAY ==
--- NOTE | 2022-12-11 17:36 | RAD_ITS ---
EXAM: XR LUMBOSACRAL SPINE, 4 OR 5 VIEWS CLINICAL INDICATION: BACK PAIN -- -- RADIATES DOWN LOWER EXTREMITIES TECHNIQUE: Frontal, lateral and bilateral oblique views of the lumbar spine. COMPARISON: No relevant prior studies available. FINDINGS: VERTEBRAE: There is accentuation of the lordotic curvature. Mild S-shaped thoracolumbar scoliosis. Mild anterolisthesis of L4 with respect to L5 of roughly 5.5 mm. Facet joint hypertrophic changes at multiple levels, most pronounced at L3-L5. DISC SPACES: At least moderate disc space narrowing and vacuum disc at L4-5 and multilevel disc space narrowing. Mild endplate sclerosis at T12-L2. Marked narrowing of the right L1-to L2-3 disc spaces the frontal view and narrowing of the left L4-5 and L5-S1 disc spaces. VASCULATURE: Peripheral calcification of the intra-abdominal aorta, no evidence of aneurysm. GASTROINTESTINAL TRACT: Unremarkable as visualized. Included bowel gas pattern is non-obstructive. OTHER FINDINGS: Part of left hip prosthesis is included. RAD/L/S Spine Min 4 Views IMPRESSION: 1. Moderate multilevel degenerative changes. Mild L4 anterolisthesis. Mild S-shaped scoliosis. 2. No visible fracture or compression deformities. Electronically Signed: Genna Lion MD at 8:54 EDT ,
== END | disposition home or self-care (01) ==
LOC: RAD 17:31
PROVIDERS: PCP Family Medicine Geriatric Medicine; Referring Provider Family Medicine Geriatric Medicine; Visit Provider Family Medicine Geriatric Medicine
DX: M47.817 Spondylosis without myelopathy or radiculopathy, lumbosacral region (principal); M41.9 Scoliosis, unspecified
CPT/HCPCS: 72110

== ENCOUNTER 2023-02-16 13:18 | Inpatient (IN) | payer MEDICARE, BC, SELFPAY ==
[2023-02-16 13:19] VITALS: BP 164/77; PULSE 82; RESP 17; TEMP 36.6; O2SAT 90; BMI 29.3
[2023-02-16 13:22] VITALS: BP 164/77; PULSE 84; RESP 19; TEMP 36.6; O2SAT 90
--- NOTE | 2023-02-16 13:37 | EX.ED.DYSGE1 ---
HPI History of Present Illness Chief Complaint: Weakness [facility] Medical History (Updated 02/16/23 @ 15:[address] Cuca Baker MD) Arthritis Dementia Difficulty balancing Fatigue Hay fever High cholesterol History of bronchitis Hypertension Incontinence Severe headache Home Medications aspirin 81 mg chewable tablet 81 mg PO DAILY@0800 HEART 09/01/14 [History Last Taken 01/29/17] atorvastatin 20 mg tablet 20 mg PO QHS LOWERS CHOLESTEROL 09/01/14 [History Last Taken 01/28/17] cholecalciferol (vitamin D3) 50 mcg (2,000 unit) capsule (Vitamin D3) 50 mcg PO DAILY 01/16/21 [History Last Taken Unknown] donepezil 10 mg tablet 10 mg PO DAILY 01/16/21 [History Last Taken Unknown] levothyroxine 75 mcg tablet 75 mcg PO DAILY 01/16/21 [History Last Taken Unknown] memantine 10 mg tablet 10 mg PO BID 01/16/21 [History Last Taken Unknown] paroxetine HCl 10 mg tablet 10 mg PO DAILY 01/16/21 [History Last Taken Unknown] sulfamethoxazole 800 mg-trimethoprim 160 mg tablet 1 tab PO BID #10 TABLETS 01/16/21 [Rx Last Taken Unknown] Allergy/AdvReac Type Severity Reaction Status Date / Time No Known Allergies Allergy Verified 01/16/21 00:21 Surgical History Hx of hysterectomy Social History Smoking Status: Never smoker alcohol intake: never EXAM Physical Exam Const Vital Signs: 02/16/23 13:19 02/16/23 13:22 Temperature 97.9 F 97.9 F Temperature Source Temporal Temporal Pulse Rate 82 84 Respiratory Rate 17 19 H Blood Pressure 164/77 H 164/77 H Blood Pressure Mean 106 106 Pulse Ox 90 90 Oxygen Delivery Method Room Air Room Air MDM MDM MDM Narrative Medical decision making narrative: HISTORY OF PRESENT ILLNESS: 83-year-old female presents with increased weakness for 2 days. The patient does not provide reliable history she does know her name and where she is but does not elaborate while being interviewed. She does deny chest pain. She denies any PE risk factors (the patient denies recent surgery in the last 4 weeks or immobilization in the last 3 days, denies previous diagnosis of DVT or PE, hemoptysis, unilateral leg swelling or malignancy with treatment the last 6 months or palliative. No estrogen use noted.) REVIEW OF SYSTEMS: Review of systems unreliable secondary to altered mental status PHYSICAL EXAM: Nursing triage notes reviewed, Vital signs reviewed Constitutional: please see mdm HENT: MMM Eyes: Pupils equal round and reactive to light, Extraocular muscles intact Neck: No stridor, no JVD, full neck ROM Lungs: Clear to auscultation, No wheezing or rales. No increased work of breathing, no conversational dyspnea, no accessory muscle use, no nasal flaring. No respiratory distress noted Heart: Regular rate and rhythm, No murmurs, No rubs and No gallops, 2+ distal pulses (radial, femoral, posterior tibial) in all extremities Abdomen: Soft, there is no tenderness, rigidity, rebound or guarding, no obvious peritoneal signs, no palpable pulsatile abdominal masses, no auscultated abdominal bruit : No CVAT Extremities: No edema Neuro: No focal neurological deficits, cranial nerves II through XII intact, 5/5 strength in all extremities. Intact sensation to light touch in all extremities, 2+ reflexes bilateral patella tendons. Normal gait. No ataxia. Skin: No rash or lesions noted MEDICAL DECISION MAKING: Chief Complaint: Weakness External records reviewed: Last ED visit in 2020 Factors affecting care: Dementia, hyperlipidemia, hypothyroidism Social determinants of health: none History obtained from others: EMS Consults: Internal medicine [facility] Narrative: Was initially hemodynamically stable, afebrile, nontoxic-appearing. The patient was somnolent. She was initially hypoxic to 87% with a good waveform. She was started on 4 L nasal cannula which is new for her. I considered the following differential diagnosis: COVID, flu, pneumonia, ACS, arrhythmia, anemia, PE, UTI, metabolic or infectious encephalopathy ALL IMAGES (IF OBTAINED) HAVE BEEN PERSONALLY REVIEWED AND INTERPRETED BY MYSELF. CT scan of the head was negative for bleed or mass EKG with normal sinus rhythm, normal axis, normal intervals, no obvious STEMI or ischemic changes no arrhythmias noted COVID-19 positive CBC without leukocytosis, severe anemia, there is noted thrombocytopenia which is similar to baseline however slightly downtrending CMP without evidence of acute kidney injury, significant electrolyte abnormality, anion gap, no evidence hepatobiliary pathology. High-sensitivity troponin is negative, no evidence of myocardial ischemia BNP mildly elevated consistent with increased ventricular stretch and transmural pressure The synthesis of the patient's history, physical exam, labs, images suggest COVID-19, UTI causing infectious encephalopathy. Patient was given empiric Decadron, ceftriaxone. Given hypoxia and signs of severe COVID she will need inpatient mission. I discussed the case with the hospitalist Dr. Baker The patient and/or family, caregivers express understanding. The patient and/or family, caregivers agrees with the plan. Shared decision making: I will have a discussion with the patient and or visitors regarding risk/benefits of further testing or admission. They will be made aware of of the risk/benefits inherent in this decision they will be given the opportunity to voice understanding. Total critical care time today provided was at least 35 minutes. This excludes separately billable procedures. Critical care time (if documented) is secondary to the patient having high probability of clinically significant/life threatening deterioration in the patient's condition which required my urgent intervention. Impression: 1. Hypoxia 2. Altered Mental status 3. COVID 19 4. UTI Dispo: Admit to [facility] Lab Data Labs: Laboratory Results - last 24 hr 02/16/23 02/16/23 13:35 14:50 WBC 3.7 L RBC 3.91 L Hgb 13.6 Hct 43.8 MCV 112.0 H MCH 34.8 H MCHC 31.1 L RDW Std Deviation 51.8 H RDW Coeff of Bhupinder 12.4 Plt Count 134 L MPV 9.8 Immature Gran % (Auto) 0.500 Neut % (Auto) 74.4 H Lymph % (Auto) 14.2 L [place] % (Auto) 10.1 H Eos % (Auto) 0.5 Baso % (Auto) 0.3 Absolute Neuts (auto) 2.7 Absolute Lymphs (auto) 0.52 L Nucleated RBC % 0 Differential Comment SCANNED Diff Path Review May foll Sodium 140 Potassium 3.6 Chloride 107 Carbon Dioxide 31.0 Anion Gap 2 L BUN 17 Creatinine 1.17 H Estim Creat Clear Calc 30.36 Est GFR (MDRD) Af Amer 57 L Est GFR (MDRD) Non-Af 47 L BUN/Creatinine Ratio 14.5 Glucose 105 Calcium 8.6 Total Bilirubin 0.40 AST 31 ALT 21 Alkaline Phosphatase 72 Troponin I High Sens 21 B-Natriuretic Peptide 107.1 H Total Protein 6.2 L Albumin 2.3 L Globulin 3.9 Albumin/Globulin Ratio 0.6 L Lipase 34 Urine Color Yellow Urine Clarity Cloudy Urine pH 5.0 Ur Specific [place] 1.020 Urine Protein 15 H Urine Glucose (UA) Normal Urine Ketones 5 H Urine Occult Blood 50 H Urine Nitrite Positive H Urine Bilirubin Negative Urine Urobilinogen Normal Ur Leukocyte Esterase 100 H Urine RBC 0-5 SEEN Urine WBC 10-25 SEEN Ur Squamous Epith Cells 0-5 SEEN Urine Bacteria 3+ Urine Mucus 0 SEEN Radiography Diagnostic Testing: Clinical Impression(s) from Imaging Studies Brain CT 02/16/23 13:57 IMPRESSION: 1. No acute intracranial process. 2. Chronic involutional changes of the brain. Electronically Signed: Terry Shields MD at 14:35 EST , Chest X-Ray 02/16/23 14:15 IMPRESSION: Stable chest with no acute or active cardiopulmonary disease. Electronically Signed: Sunil Osman MD at 14:39 EST , Discharge Plan Triage Chief Complaint: Weakness ED Provider: Ajay Bey Dx/Rx/DC Orders Prescriptions: No Action aspirin 81 MG tablet,chewable 81 mg PO DAILY@0800 Patient Comments: heart health atorvastatin 20 MG tablet 20 mg PO QHS Patient Comments: lower cholesterol paroxetine HCl 10 mg tablet 10 mg PO DAILY donepezil 10 mg tablet 10 mg PO DAILY levothyroxine 75 mcg tablet 75 mcg PO DAILY memantine 10 mg tablet 10 mg PO BID cholecalciferol (vitamin D3) [Vitamin D3] 50 mcg (2,000 unit) Capsule 50 mcg PO DAILY sulfamethoxazole-trimethoprim [sulfamethoxazole-trimethoprim] 1 TABLET tablet 1 tab PO BID Qty: 10 0RF Primary Care Provider: Kwan Murphy Chi Referrals: Kwan Murphy Chi, MD [Primary Care Provider] -
--- NOTE | 2023-02-16 13:57 | CT_ITS ---
INDICATION: AMS, confusion EXAMINATION: CT BRAIN - CT Head or Brain W/O Contrast Injection TECHNIQUE: Multiple axial images were obtained of the head without intravenous contrast. A radiation dose optimization technique was used for this scan. IV Contrast dosage and agent: None. RADIATION DOSAGE (If Supplied By Facility): CTDIvol = ( 44.99 ) mGy, DLP = ( 796.11 ) mGycm COMPARISON: MRI of the brain of 12/17/2018. FINDINGS: BRAIN PARENCHYMA: No intra- or extra-axial hemorrhage. No evidence of acute infarct. No intracranial mass or mass effect. There is preservation of the bourne/white matter interface. Periventricular deep white matter changes likely due to microvascular disease. Posterior fossa structures are unremarkable. Atherosclerotic calcifications of the cavernous internal carotid arteries. CSF SPACES: Moderate diffuse atrophy. No hydrocephalus. Basal cisterns are patent. CALVARIUM, SKULL BASE, PARANASAL SINUSES AND MASTOID AIR CELLS: Mucosal thickening of the right maxillary sinus. No discrete lytic or blastic abnormalities. ORBITS: Previous bilateral cataract surgery. CT/Brain/Head without Contrast IMPRESSION: 1. No acute intracranial process. 2. Chronic involutional changes of the brain. Electronically Signed: Terry Shields MD at 14:35 EST ,
[2023-02-16 14:04] LABS: Absolute Lymphocyte Count 0.52 X10^3/uL (0.83-4.51); Absolute Neutrophil Count 2.7 X10^3/uL (2.0-7.7); Basophil# 0.01 X10^3/uL; Basophil% 0.3 % (0-1); Eosinophil# 0.02 X10^3/uL; Eosinophils% 0.5 % (0-5); Hematocrit 43.8 % (37-47); Hemoglobin 13.6 g/dL (12.0-15.0); Lymphocyte # 0.52 X10^3/ul (0.83-4.51); Lymphocyte % 14.2 % (19-41); Mean Corp Hgb Conc 31.1 g/dL (32-36); Mean Corpuscular Hgb 34.8 pg (27.0-32.0); Mean Platelet Vol. 9.8 fl (6.2-12.0); Monocyte# 0.37 X10^3/uL; Monocyte% 10.1 % (0-10); NRBC Flagged by Analyzer 0 % (0-5); Neutrophil # 2.73 X10^3/uL (2.7-7.7); Neutrophil % 74.4 % (47-70); POSITIVE DIFFERENTIAL YES; Platelet Count 134 K/mm3 (150-450); RBC Distribution Width CV 12.4 % (11.6-14.6); RBC Distribution Width SD 51.8 fl (35.1-43.9); Red Blood Count 3.91 M/mm3 (4.2-5.4); White Blood Count 3.7 K/mm3 (4.4-11.0)
[2023-02-16 14:10] LABS: Differential Indicated SCAN CRITERIA MET
--- NOTE | 2023-02-16 14:15 | RAD_ITS ---
STUDY: X-RAY CHEST REASON FOR EXAM: Female, 83 years old. Shortness of breath. TECHNIQUE: Single frontal view of the chest. COMPARISON: August 05, 2022 FINDINGS: Mild hyperinflation unchanged. There is no demonstrated pleural abnormality. Stable borderline cardiomegaly. Normal mediastinum and timothy. Normal visualized pulmonary arteries. Aortic tortuosity with calcification unchanged. Normal visualized thoracic spine. Stable osteoarthrosis of both glenohumeral joints. No abnormality of the visualized soft tissue structures of the upper abdomen. RAD/Chest 1 View (Portable) IMPRESSION: Stable chest with no acute or active cardiopulmonary disease. Electronically Signed: Sunil Osman MD at 14:39 EST ,
[2023-02-16 14:19] LABS: ALB/GLOB Ratio 0.6 RATIO (0.9-2.4); AST(SGOT) 31 U/L (15-37); Alanine Aminotransfer ALT/SGPT 21 U/L (13-56); Albumin, Serum 2.3 g/dL (3.2-5.0); Alkaline Phosphatase 72 U/L (45-117); Anion Gap 2 (5-15); BUN 17 mg/dL (7-18); BUN/Creat Ratio 14.5 RATIO (10-20); Calcium,Total 8.6 mg/dL (8.5-10.1); Chloride 107 mmol/L (98-107); Creatinine, Serum 1.17 mg/dL (0.55-1.02); EST Glomerular Filtration Rate 47 mL/min (>60); Est Glom Filt Rate - Afr Amer 57 mL/min (>60); Estimated Creatinine Clearance 30.36 ml/min; Globulin 3.9 g/dL (2.2-4.2); Glucose 105 mg/dL (74-106); Lipase 34 U/L (13-75); Potassium 3.6 mmol/L (3.5-5.1); Protein, Total 6.2 g/dL (6.4-8.2); Sodium Level 140 mmol/L (136-145); Troponin-I HS 21 pg/mL (3.0-54.0)
[2023-02-16 14:26] LABS: BNP,B-Type NATRIURETIC PEPTIDE 107.1 pg/mL (0-100); Differential Comment SCANNED
[2023-02-16 14:55] LABS: Mucous, Urine 0 SEEN /hpf (<or=2+)
[2023-02-16 14:56] LABS: Color, Urine Yellow (Yellow); Glucose, Dipstick Normal (Normal); Ketone-Dipstick 5 mg/dl (Negative); Leukocyte Esterase-Dipstick 100 /ul (Negative); Nitrite-Dipstick Positive (Negative); Occult Blood-Urine 50 /ul (Negative); Protein-Dipstick 15 mg/dl (Negative); Urine Bilirubin Dipstick Negative (Negative); Urine Clarity Cloudy (Clear); Urine Urobilinogen Normal (Normal)
--- OUTSIDE RECORDS SUMMARY | 2023-02-16 14:57 | XMS RPT_ITS | CCD ---
Author Name Unknown Address [address] [place] [address] Organization [facility] Results Test Name Value Interpretation Reference Range Facil ity Summary Purpose Family History No Family History Records Found Advance Directives No Advanced Directives Records Found Additional Source Comments INFORMATION SOURCE (unrecogn ized section and content) FOR RECORDS PERTAINING TO PATIENTS WHO ARE OR HAVE BEEN ENROLLED IN A CHEMICAL DEPENDENCY/SUBSTANCEABUSE PROGRAM, SOME INFORMATION MAY BE OMITTED. This clinical summary was aggregated from multiple sources. Caution should be exercised in using it in the provision of clinical care. This summary normalizes information from multiple sources, and as a consequence, information in this document may materially change the coding, format and clinical context of patient data. In addition, data may be omitted in some cases. CLINICAL DECISIONS SHOULD BE BASED ON THE PRIMARY CLINICAL RECORDS. [employer] provides no warranty or guarantee of the accuracy or completeness of information in this document.
[2023-02-16 15:02] LABS: Bacteria 3+ /hpf (None Seen); Red Blood Cells-Urine 0-5 SEEN /hpf (0-5); Squamous Epithelial Cells - UA 0-5 SEEN /hpf (5-10); White Blood Cells 10-25 SEEN /hpf (0-5)
[2023-02-16] MEDS: dexAMETHasone 10 MG/ML Vial 6 MG IV (15:38)
--- NOTE | 2023-02-16 15:50 | PCM.HP.STD ---
HPI - General General Date of Admission: 02/16/23 Date of Service: 02/16/23 Chief Complaint: Altered mentation HPI Narrative DONALD DANGELO, is a 83 F who brought to the ED with concerns of generalized weakness, easy fatigability and deterioration of mental status. She lives at home with her daughter. Her daughter noticed that she has been having progressive fatigue over the last 2 days and has been coughing a lot since the last few days. There were no sick contacts but she had family home over the holidays. She the patient is pleasantly confused at baseline but her dementia has progressed since her fever over the last few days. On evaluation in the ED, white count 3.7, hemoglobin 13.6, platelet count 134 BUN 17, creatinine 1.17, calcium 8.6, BNP 107.1, albumin 2.3. Urinalysis showed positive nitrate with positive leuk esterase, 20-25 WBCs. 3+ bacteria [facility] Medical History (Updated 02/16/23 @ 15:[address] Cuca Baker MD) Arthritis Dementia Difficulty balancing Fatigue Hay fever High cholesterol History of bronchitis Hypertension Incontinence Severe headache Home Medications aspirin 81 mg chewable tablet 81 mg PO DAILY@0800 HEART 09/01/14 [History Last Taken 01/29/17] atorvastatin 20 mg tablet 20 mg PO QHS LOWERS CHOLESTEROL 09/01/14 [History Last Taken 01/28/17] cholecalciferol (vitamin D3) 50 mcg (2,000 unit) capsule (Vitamin D3) 50 mcg PO DAILY bone health 01/16/21 [History Last Taken Unknown] donepezil 10 mg tablet 10 mg PO DAILY memory 01/16/21 [History Last Taken Unknown] levothyroxine 75 mcg tablet 75 mcg PO DAILY thyroid 01/16/21 [History Last Taken Unknown] memantine 10 mg tablet 10 mg PO BID memory 01/16/21 [History Last Taken Unknown] paroxetine HCl 10 mg tablet 10 mg PO DAILY depression 01/16/21 [History Last Taken Unknown] losartan 100 mg tablet 100 mg PO DAILY blood pressur 02/16/23 [History Last Taken 02/15/23] Allergy/AdvReac Type Severity Reaction Status Date / Time No Known Allergies Allergy Verified 01/16/21 00:21 Surgical History Hx of hysterectomy Social History Smoking Status: Never smoker alcohol intake: never ROS Review of Systems ROS Unobtainable: due to mental status Vital Signs Vital Signs Vital Signs: 02/16/23 13:19 02/16/23 13:22 Temperature 97.9 F 97.9 F Temperature Source Temporal Temporal Pulse Rate 82 84 Respiratory Rate 17 19 H Blood Pressure 164/77 H 164/77 H Blood Pressure Mean 106 106 Pulse Ox 90 90 Oxygen Delivery Method Room Air Room Air Weight Weight: 170 lb 13.732 oz Body Mass Index (BMI) 29.3 Physical Exam Const Constitutional Narrative: Pleasantly confused, AO x 1, intact remote memory HEENT normocephalic Eyes PERRL Neck no lymphadenopathy Resp normal respiratory effort, no retractions and no use of accessory muscles Cardio regular rate and regular rhythm Extremity normal to inspection Neuro Sensorium / Orientation: awake, alert and oriented to place Results Medical Records Data Attestation: I reviewed the patient's medical records Lab / Micro Data Attestation: I reviewed the patient's lab results. 02/16/23 13:35 02/16/23 13:35 Labs: Laboratory Results - last 24 hr 02/16/23 13:35: WBC 3.7 L, RBC 3.91 L, Hgb 13.6, Hct 43.8, MCV 112.0 H, MCH 34.8 H, MCHC 31.1 L, RDW Std Deviation 51.8 H, RDW Coeff of Bhupinder 12.4, Plt Count 134 L, MPV 9.8, Immature Gran % (Auto) 0.500, Neut % (Auto) 74.4 H, Lymph % (Auto) 14.2 L, [place] % (Auto) 10.1 H, Eos % (Auto) 0.5, Baso % (Auto) 0.3, Absolute Neuts (auto) 2.7, Absolute Lymphs (auto) 0.52 L, Nucleated RBC % 0, Differential Comment SCANNED, Diff Path Review June foll, Sodium 140, Potassium 3.6, Chloride 107, Carbon Dioxide 31.0, Anion Gap 2 L, BUN 17, Creatinine 1.17 H, Estim Creat Clear Calc 30.36, Est GFR (MDRD) Af Amer 57 L, Est GFR (MDRD) Non-Af 47 L, BUN/Creatinine Ratio 14.5, Glucose 105, Calcium 8.6, Total Bilirubin 0.40, AST 31, ALT 21, Alkaline Phosphatase 72, Troponin I High Sens 21, B-Natriuretic Peptide 107.1 H, Total Protein 6.2 L, Albumin 2.3 L, Globulin 3.9, Albumin/Globulin Ratio 0.6 L, Lipase 34 02/16/23 14:50: Urine Color Yellow, Urine Clarity Cloudy, Urine pH 5.0, Ur Specific [place] 1.020, Urine Protein 15 H, Urine Glucose (UA) Normal, Urine Ketones 5 H, Urine Occult Blood 50 H, Urine Nitrite Positive H, Urine Bilirubin Negative, Urine Urobilinogen Normal, Ur Leukocyte Esterase 100 H, Urine RBC 0-5 SEEN, Urine WBC 10-25 SEEN, Ur Squamous Epith Cells 0-5 SEEN, Urine Bacteria 3+, Urine Mucus 0 SEEN Micro: Microbiology 02/16/23 14:20 Nasal Secretion SARS-CoV-2 & FLU Antigen (Rapid) - Final SARS-CoV-2 (COVID 19) Imagaing Radiology Impression Brain CT 02/16/23 13:57 IMPRESSION: 1. No acute intracranial process. 2. Chronic involutional changes of the brain. Electronically Signed: Terry Shields MD at 14:35 EST , Chest X-Ray 02/16/23 14:15 IMPRESSION: Stable chest with no acute or active cardiopulmonary disease. Electronically Signed: Sunil Osman MD at 14:39 EST , Assessment & Plan Assessment/Plan (1) Altered mental status: PLAN: Plan 83-year-old female presents to the ED with altered mentation and her evaluation was suggestive of UTI and COVID infection. Given her age and need for supportive oxygen therapy she is presenting with severe COVID, for this we will start her on remdesivir and decadron therapy. 1. Severe COVID-19: -Acute on chronic respiratory failure at the time of presentation and required about 4 liters of oxygen -Started on iv decadron therapy in the ED, will continue on oral decadron 6 mg daily for next 9 days or till her discharge from the hospital -Will remdesivir 200 mg stat dose and then 100 mg for 4 days. This was discussed with inpatient pharmacy team also. -Started on therapy before prophylaxis of DVT 2. UTI with suspected sepsis: -Will start her on IV Ceftriaxone for suspected complicated UTI, along with fluid therapy. -Urine cultures, blood cultures have been sent from the ED 3. Altered mentation -Likely related to fever, and acute infection. Given her age she is at high risk of delirium. -Will start all necessary delirium precautions. 4. Dementia: Continue home medications, donepezil 5. Hypothyroidism: Check serum TSH 6. HTN: Continue home anti-HTN medications Charges/Coding Visit Charges Inpatient E&M: 08550 Init Hosp L2
[2023-02-16] MEDS: Ceftriaxone 1 GM/50 ML BAG IV (15:58)
[2023-02-16 16:48] VITALS: BP 162/83; PULSE 75; RESP 18; TEMP 36.6
--- OUTSIDE RECORDS SUMMARY | 2023-02-16 16:51 | XMS RPT_ITS | CCD ---
Author Name Unknown Address [address] [place] [address] Organization [facility] Results Test Name Value Interpretation [...] BE BASED ON THE PRIMARY CLINICAL RECORDS. [email or web address] provides no warranty or guarantee of the accuracy or completeness of information in this document.
--- OUTSIDE RECORDS SUMMARY | 2023-02-16 16:57 | XMS RPT_ITS | CCD ---
Author Name Unknown Address [address] [place] [address] Organization [facility] Results Test Name Value Interpretation [...] BE BASED ON THE PRIMARY CLINICAL RECORDS. [employer] provides no warranty or guarantee of the accuracy or completeness of information in this document.
[2023-02-16 18:05] VITALS: BP 139/76; PULSE 100; RESP 14; TEMP 36.9; O2SAT 97; BMI 28.0
[2023-02-16 18:29] LABS: Lactic Acid 0.8 mmol/L (0.4-1.9)
[2023-02-16 18:42] LABS: D-Dimer Quantitative (DVT/PE) 2.79 FEU/ug/m (0.27-0.49)
[2023-02-16 18:48] LABS: CPK Total, Creatine Kinase 111 U/L (26-192)
[2023-02-16] MEDS: Losartan Potassium 50 MG Tablet PO (18:52)
[2023-02-16] MEDS: Remdesivir 200 MG in 0.9% Normal Saline (250mL Bag) 210 ML 250 MG IV (20:57)
[2023-02-16 20:59] VITALS: BP 126/84; PULSE 81; RESP 18; TEMP 36.6; O2SAT 95
[2023-02-16] MEDS: Atorvastatin Calcium 20 MG Tablet PO (21:01)
[2023-02-16] MEDS: Heparin Injection (Vial) 5,000 UNIT/ML VIAL 5000 UNIT SC (21:01)
[2023-02-16] MEDS: Memantine Hydrochloride 10 MG Tablet PO (21:01)
[2023-02-16 23:02] VITALS: RESP 18
[2023-02-17] VITALS (11 sets, daily range): BP systolic 114–155; BP diastolic 65–87; PULSE 60–76; RESP 16–18; TEMP 36.3–36.7; O2SAT 89–99
[2023-02-17] MEDS: Levothyroxine 75 MCG Tablet PO (05:28)
[2023-02-17] MEDS: Acetaminophen 325 MG Tablet 650 MG PO ×2 (05:29→13:34)
[2023-02-17 08:29] LABS: Absolute Lymphocyte Count 0.61 X10^3/uL (0.83-4.51); Absolute Neutrophil Count 1.8 X10^3/uL (2.0-7.7); Basophil# 0.01 X10^3/uL; Basophil% 0.4 % (0-1); Hematocrit 38.8 % (37-47); Hemoglobin 12.3 g/dL (12.0-15.0); Lymphocyte # 0.61 X10^3/ul (0.83-4.51); Lymphocyte % 22.1 % (19-41); Mean Corp Hgb Conc 31.7 g/dL (32-36); Mean Corpuscular Hgb 35.3 pg (27.0-32.0); Mean Corpuscular Volume 111.5 fL (81-99); Mean Platelet Vol. 9.9 fl (6.2-12.0); Monocyte# 0.36 X10^3/uL; NRBC Flagged by Analyzer 0 % (0-5); Neutrophil # 1.77 X10^3/uL (2.7-7.7); Neutrophil % 64.1 % (47-70); Platelet Count 125 K/mm3 (150-450); RBC Distribution Width CV 11.9 % (11.6-14.6); RBC Distribution Width SD 49.4 fl (35.1-43.9); Red Blood Count 3.48 M/mm3 (4.2-5.4); White Blood Count 2.8 K/mm3 (4.4-11.0)
[2023-02-17 08:36] LABS: International Normalized Ratio 1.1; Prothrombin Time (Protime)PT. 13.8 SECONDS (11.7-14.9)
[2023-02-17 09:36] LABS: ALB/GLOB Ratio 0.6 RATIO (0.9-2.4); AST(SGOT) 24 U/L (15-37); Alanine Aminotransfer ALT/SGPT 16 U/L (13-56); Alkaline Phosphatase 63 U/L (45-117); Anion Gap 6 (5-15); BUN 18 mg/dL (7-18); BUN/Creat Ratio 20.2 RATIO (10-20); Bilirubin, Direct 0.09 mg/dL (0.00-0.30); Calcium,Total 8.8 mg/dL (8.5-10.1); Chloride 108 mmol/L (98-107); Creatinine, Serum 0.89 mg/dL (0.55-1.02); EST Glomerular Filtration Rate 64 mL/min (>60); Est Glom Filt Rate - Afr Amer 77 mL/min (>60); Estimated Creatinine Clearance 39.91 ml/min; Globulin 3.5 g/dL (2.2-4.2); Glucose 102 mg/dL (74-106); Magnesium 2.2 mg/dL (1.6-2.6); Phosphorus 3.7 mg/dL (2.5-4.9); Potassium 3.9 mmol/L (3.5-5.1); Protein, Total 5.5 g/dL (6.4-8.2); Sodium Level 140 mmol/L (136-145); Thyroid Stim Hormone (TSH) 0.56 uIU/mL (0.358-3.74)
--- NOTE | 2023-02-17 10:04 | PN.HOSP_ITS ---
Subjective Subjective No issues overnight, maintaining her oxygen saturations on 2 L nasal cannula Objective Data Objective Data Vital Signs: Vital Signs Temp Pulse Resp BP Pulse Ox O2 Del Method O2 Flow Rate 97.9 F 65 18 148/87 H 96 Nasal Cannula 2 02/17/23 03:33 02/17/23 03:33 02/17/23 03:33 02/17/23 03:33 02/17/23 06:56 02/17/23 06:56 02/17/23 06:56 Oxygen Flow Rate (L/min) 2 Oxygen Delivery Method Nasal Cannula Weight: 163 lb 5.448 oz Body Mass Index (BMI) 28.0 Intake & Output: Intake and Output for Last 24 Hours 02/16/23 02/17/23 02/18/23 03:59 03:59 03:59 Intake Total 300 / 300 Balance 300 / 300 Lab / Micro Data 02/17/23 07:47 02/17/23 07:47 Labs: Laboratory Results - last 24 hr 02/16/23 13:35: WBC 3.7 L, RBC 3.91 L, Hgb 13.6, Hct 43.8, MCV 112.0 H, MCH 34.8 H, MCHC 31.1 L, RDW Std Deviation 51.8 H, RDW Coeff of Bhupinder 12.4, Plt Count 134 L , MPV 9.8, Immature Gran % (Auto) 0.500, Neut % (Auto) 74.4 H, Lymph % (Auto) 14.2 L, [place] % (Auto) 10.1 H, Eos % (Auto) 0.5, Baso % (Auto) 0.3, Absolute Neuts (auto) 2.7, Absolute Lymphs (auto) 0.52 L, Nucleated RBC % 0, Differential Comment SCANNED, Diff Path Review June foll, D-Dimer Quant (PE/DVT) 2.79 H*, Sodium 140, Potassium 3.6, Chloride 107, Carbon Dioxide 31.0, Anion Gap 2 L, BUN 17, Creatinine 1.17 H, Estim Creat Clear Calc 30.36, Est GFR (MDRD) Af Amer 57 L , Est GFR (MDRD) Non-Af 47 L, BUN/Creatinine Ratio 14.5, Glucose 105, Calcium 8.6, Total Bilirubin 0.40, AST 31, ALT 21, Alkaline Phosphatase 72, Total Creatine Kinase 111, Troponin I High Sens 21, C-React Prot Ext Range 16.50 H, B- Natriuretic Peptide 107.1 H, Total Protein 6.2 L, Albumin 2.3 L, Globulin 3.9, Albumin/Globulin Ratio 0.6 L, Lipase 34 02/16/23 14:50: Urine Color Yellow, Urine Clarity Cloudy, Urine pH 5.0, Ur Specific [place] 1.020, Urine Protein 15 H, Urine Glucose (UA) Normal, Urine Ketones 5 H, Urine Occult Blood 50 H, Urine Nitrite Positive H, Urine Bilirubin Negative, Urine Urobilinogen Normal, Ur Leukocyte Esterase 100 H, Urine RBC 0-5 SEEN, Urine WBC 10-25 SEEN, Ur Squamous Epith Cells 0-5 SEEN, Urine Bacteria 3+, Urine Mucus 0 SEEN 02/16/23 17:57: Lactic Acid 0.8 02/17/23 07:47: WBC 2.8 L, RBC 3.48 L, Hgb 12.3, Hct 38.8, MCV 111.5 H, MCH 35.3 H, MCHC 31.7 L, RDW Std Deviation 49.4 H, RDW Coeff of Bhupinder 11.9, Plt Count 125 L , MPV 9.9, Immature Gran % (Auto) 0.400, Neut % (Auto) 64.1, Lymph % (Auto) 22.1, [place] % (Auto) 13.0 H, Eos % (Auto) 0.0, Baso % (Auto) 0.4, Absolute Neuts (auto) 1.8 L, Absolute Lymphs (auto) 0.61 L, Nucleated RBC % 0, PT 13.8, INR 1.1, Sodium 140, Potassium 3.9, Chloride 108 H, Carbon Dioxide 26.0, Anion Gap 6, BUN 18, Creatinine 0.89, Estim Creat Clear Calc 39.91, Est GFR (MDRD) Af Amer 77, Est GFR (MDRD) Non-Af 64, BUN/Creatinine Ratio 20.2 H, Glucose 102, Calcium 8.8, Phosphorus 3.7, Magnesium 2.2, Total Bilirubin 0.20, Direct Bilirubin 0.09, AST 24, ALT 16, Alkaline Phosphatase 63, Total Protein 5.5 L, Albumin 2.0 L, Globulin 3.5, Albumin/Globulin Ratio 0.6 L, TSH 0.56 Micro: Microbiology 02/16/23 14:20 Nasal Secretion SARS-CoV-2 & FLU Antigen (Rapid) - Final SARS-CoV-2 (COVID 19) Radiography Diagnostic Testing: Radiology Impression Brain CT 02/16/23 13:57 IMPRESSION: 1. No acute intracranial process. 2. Chronic involutional changes of the brain. Electronically Signed: Terry Shields MD at 14:35 EST , Chest X-Ray 02/16/23 14:15 IMPRESSION: Stable chest with no acute or active cardiopulmonary disease. Electronically Signed: Sunil Osman MD at 14:39 EST , Physical Exam Narrative General: Alert, Oriented x1, Cooperative, No apparent distress HEENT: Atraumatic, PERRLA, EOMI, Normocephalic Oral: Moist Mucosa Neck: Supple, No JVD Lungs: Diminished, Normal air movement, No rhonchi, No wheeze, No rales Cardiovascular: Regular rate, Regular Rhythm, Normal S1, Normal S2, No murmurs Abdomen: Soft, Non Tender, Non-Distended, No Hepato-splenomegaly Extremities: No edema, Capillary Refill Less than 3 Seconds Skin: No rashes, No breakdown Musculoskeletal: No Tenderness to Palpation of Joints or Extremities Neurological: Moves all extremities, no focal deficits, Motor Exam 5/5 strength throughout, Sensory exam intact to light touch and pain Psych/Mental Status: Flat Assessment & Plan Assessment/Plan (1) Altered mental status: PLAN: Plan 1. COVID-19 teen with hypoxia and metabolic encephalopathy/UTI without sepsis ? Unclear as to how severe her dementia is at baseline though she does not know where she is or what year it is ? Continue with Decadron and remdesivir ? PT/OT ? Urine cultures pending ? Continue with Rocephin, she has had a sensitive E. coli in the past 2. HTN/HLD ? Blood pressures are stable ? Can resume her home blood pressure medications ? Resume her home Lipitor ? We will monitor make adjustments as necessary 3. Hypothyroidism ? Stable ? Continue with Synthroid 4. Anxiety/depression/dementia ? Stable ? Continue with her home medications DVT: Heparin Charges/Coding Visit Charges Inpatient E&M: 38508 Subs Hosp L2
[2023-02-17] MEDS: Donepezil HCl 10 MG Tablet PO (10:23)
[2023-02-17] MEDS: Aspirin 81 MG TAB.CHEW PO (10:23)
[2023-02-17] MEDS: Cholecalciferol (VIT D3) 25 MCG TABLET (1,000 UNITS) 50 MCG PO (10:23)
[2023-02-17] MEDS: Memantine Hydrochloride 10 MG Tablet PO ×2 (10:23→21:17)
[2023-02-17] MEDS: Heparin Injection (Vial) 5,000 UNIT/ML VIAL 5000 UNIT SC ×2 (10:24→21:17)
[2023-02-17] MEDS: dexAMETHasone 4 MG Tablet 6 MG PO (10:24)
[2023-02-17] MEDS: PARoxetine 10 MG Tablet PO (10:24)
[2023-02-17] MEDS: Losartan Potassium 50 MG Tablet PO (10:24)
[2023-02-17] MEDS: guaiFENesin 10 ML UDC (200MG/10ML) 20 ML PO (10:31)
[2023-02-17] MEDS: Ceftriaxone 1 GM/50 ML BAG IV (10:42)
--- OUTSIDE RECORDS SUMMARY | 2023-02-17 12:56 | XMS RPT_ITS | CCD ---
Author Name Unknown Address [address] [place] [address] Organization [facility] Results Test Name Value Interpretation [...] BE BASED ON THE PRIMARY CLINICAL RECORDS. [employer]. provides no warranty or guarantee of the accuracy or completeness of information in this document.
[2023-02-17 14:20] LABS: Pathologist Review Reviewed
--- NOTE | 2023-02-17 18:27 | CT_ITS ---
STUDY: CTA CHEST REASON FOR EXAM: Female, 83 years old. Shortness of breath, r/o PE RADIATION DOSAGE (If Supplied By Facility): CTDIvol = ( 15.35 ) mGy, DLP = ( 384.68 ) mGycm TECHNIQUE: The examination was performed with the intravenous administration of 100mL Isovue-370. Post-processing of the angiographic images was performed, with multiplanar reformation and 3D reconstruction. Individualized dose optimization techniques were used for this CT. COMPARISON: Chest x-ray February 16, 2023 FINDINGS: Normal enhancement of the main pulmonary artery and right and left pulmonary arteries. Normal enhancement of the bilateral peripheral pulmonary arteries. There is no demonstrated pulmonary embolism. There is atherosclerotic calcification of the aortic arch with tortuosity. There is no demonstrated aortic dissection. There are calcifications of the coronary arteries. There are valvular calcifications. Normal mediastinum. Normal hilar regions. Normal visualized trachea and bronchi. The lungs are well expanded. There are mildly increased interstitial parenchymal markings. Normal pleura. Normal chest wall structures. There are degenerative changes of thoracic spine. There is pneumobilia in the visualized upper abdomen. CT/CTA Chest W/WO Contrast IMPRESSION: CTA chest examination, without a demonstrated pulmonary embolism or arterial dissection. Mild interstitial edema or fibrosis. Electronically Signed: Sylvester Low MD at 23:42 EST ,
[2023-02-17] MEDS: Remdesivir 100 MG in 0.9% Normal Saline (250mL Bag) 230 ML 250 MG IV (21:13)
[2023-02-17] MEDS: Atorvastatin Calcium 20 MG Tablet PO (21:17)
[2023-02-18] VITALS (9 sets, daily range): BP systolic 103–186; BP diastolic 65–97; PULSE 59–66; RESP 16–18; TEMP 36.4–36.6; O2SAT 93–96
[2023-02-18] MEDS: hydrALAZINE 20 MG/ML Vial 10 MG IV (03:42)
[2023-02-18] MEDS: Levothyroxine 75 MCG Tablet PO (04:55)
[2023-02-18 06:50] LABS: Absolute Neutrophil Count 2.8 X10^3/uL (2.0-7.7); Hematocrit 41.7 % (37-47); Hemoglobin 13.4 g/dL (12.0-15.0); Lymphocyte % 22.3 % (19-41); Mean Corp Hgb Conc 32.1 g/dL (32-36); Mean Corpuscular Hgb 35.3 pg (27.0-32.0); Mean Corpuscular Volume 109.7 fL (81-99); Mean Platelet Vol. 9.7 fl (6.2-12.0); Monocyte# 0.36 X10^3/uL; Monocyte% 8.9 % (0-10); NRBC Flagged by Analyzer 0 % (0-5); Neutrophil # 2.77 X10^3/uL (2.7-7.7); Neutrophil % 68.6 % (47-70); Platelet Count 136 K/mm3 (150-450); RBC Distribution Width CV 11.9 % (11.6-14.6); RBC Distribution Width SD 48.5 fl (35.1-43.9)
[2023-02-18 07:30] LABS: Anion Gap 3 (5-15); BUN 23 mg/dL (7-18); Chloride 110 mmol/L (98-107); Creatinine, Serum 0.88 mg/dL (0.55-1.02); EST Glomerular Filtration Rate 65 mL/min (>60); Est Glom Filt Rate - Afr Amer 78 mL/min (>60); Estimated Creatinine Clearance 40.36 ml/min; Glucose 115 mg/dL (74-106); Potassium 3.6 mmol/L (3.5-5.1); Sodium Level 141 mmol/L (136-145)
[2023-02-18] MEDS: Losartan Potassium 50 MG Tablet PO (08:58)
[2023-02-18] MEDS: dexAMETHasone 4 MG Tablet 6 MG PO (08:58)
[2023-02-18] MEDS: Memantine Hydrochloride 10 MG Tablet PO ×2 (08:58→20:44)
[2023-02-18] MEDS: Donepezil HCl 10 MG Tablet PO (08:58)
[2023-02-18] MEDS: Aspirin 81 MG TAB.CHEW PO (08:58)
[2023-02-18] MEDS: Ceftriaxone 1 GM/50 ML BAG IV (08:59)
[2023-02-18] MEDS: PARoxetine 10 MG Tablet PO (08:59)
[2023-02-18] MEDS: Heparin Injection (Vial) 5,000 UNIT/ML VIAL 5000 UNIT SC ×2 (08:59→20:44)
[2023-02-18] MEDS: Cholecalciferol (VIT D3) 25 MCG TABLET (1,000 UNITS) 50 MCG PO (08:59)
--- NOTE | 2023-02-18 11:01 | PCM.PN.HOSP ---
Subjective Subjective Doing well at rest, maintaining her oxygen saturations on room air plan for ambulatory pulse ox. Objective Data Objective Data Vital Signs: Vital Signs Temp Pulse Resp BP Pulse Ox O2 Del Method O2 Flow Rate 98 F 64 16 145/92 H 94 Room Air 2 02/18/23 08:56 02/18/23 08:56 02/18/23 08:56 02/18/23 08:56 02/18/23 08:56 02/18/23 09:26 02/18/23 07:38 Oxygen Flow Rate (L/min) 2 Oxygen Delivery Method Room Air Weight: 163 lb 2.273 oz Body Mass Index (BMI) 28.0 Intake & Output: Intake and Output for Last 24 Hours 02/17/23 02/18/23 02/19/23 03:59 03:59 03:59 Intake Total 300 / 300 1080 / 1080 50 / 50 Output Total 900 / 900 100 / 100 Balance 300 / 300 180 / 180 -50 / -50 Lab / Micro Data 02/18/23 06:25 02/18/23 06:25 Labs: Laboratory Results - last 24 hr 02/16/23 13:35: Diff Path Review Reviewed 02/18/23 06:25: WBC 4.0 L, RBC 3.80 L, Hgb 13.4, Hct 41.7, MCV 109.7 H, MCH 35.3 H, MCHC 32.1, RDW Std Deviation 48.5 H, RDW Coeff of Bhupinder 11.9, Plt Count 136 L, MPV 9.7, Immature Gran % (Auto) 0.200, Neut % (Auto) 68.6, Lymph % (Auto) 22.3, [place] % (Auto) 8.9, Eos % (Auto) 0.0, Baso % (Auto) 0.0, Absolute Neuts (auto) 2.8, Absolute Lymphs (auto) 0.90, Nucleated RBC % 0, Sodium 141, Potassium 3.6, Chloride 110 H, Carbon Dioxide 28.0, Anion Gap 3 L, BUN 23 H, Creatinine 0.88, Estim Creat Clear Calc 40.36, Est GFR (MDRD) Af Amer 78, Est GFR (MDRD) Non-Af 65, BUN/Creatinine Ratio 26.0 H, Glucose 115 H, Calcium 9.0 Micro: Microbiology 02/17/23 03:25 Urine, Clean Catch Urine Culture - Preliminary GNR 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 Mild interstitial edema or fibrosis. Electronically Signed: Sylvester Low MD at 23:42 EST , Physical Exam Narrative General: Alert, Oriented x2, Cooperative, No apparent distress HEENT: Atraumatic, PERRLA, EOMI, Normocephalic Oral: Moist Mucosa Neck: Supple, No JVD Lungs: Diminished, Normal air movement, No rhonchi, No wheeze, No rales Cardiovascular: Regular rate, Regular Rhythm, Normal S1, Normal S2, No murmurs Abdomen: Soft, Non Tender, Non-Distended, No Hepato-splenomegaly Extremities: No edema, Capillary Refill Less than 3 Seconds Skin: No rashes, No breakdown Musculoskeletal: No Tenderness to Palpation of Joints or Extremities Neurological: Moves all extremities, no focal deficits, Motor Exam 5/5 strength throughout, Sensory exam intact to light touch and pain Psych/Mental Status: Normal affect Assessment & Plan Assessment/Plan (1) Altered mental status: PLAN: Plan 1. COVID-19 teen with hypoxia and metabolic encephalopathy/UTI without sepsis ? Unclear as to how severe her dementia is at baseline though she does not know where she is or what year it is ? Continue with Decadron and remdesivir ? PT/OT ? Urine cultures pending, though CFU's less than 1000 we will discontinue Rocephin 2. HTN/HLD ? Blood pressures are stable ? Can resume her home blood pressure medications ? Resume her home Lipitor ? We will monitor make adjustments as necessary 3. Hypothyroidism ? Stable ? Continue with Synthroid 4. Anxiety/depression/dementia ? Stable ? Continue with her home medications DVT: Heparin Charges/Coding Visit Charges Inpatient E&M: 16692 Subs Hosp L2
--- NOTE | 2023-02-18 11:20 | CASEMGMT ---
CINDY TYSON received call from son Bradley to discuss needs at discharge. CINDY TYSON reviewed progress with therapy to son. Son and daughter agreeable to SNF at discharge. Son requesting SNF list be emailed to [email or web address]. Bradley's number is [phone]. CINDY TYSON updated SW and discharge seaport planning manager. CINDY TYSON updated hospitalist regarding plan for SNF at discharge.
--- NOTE | 2023-02-18 11:30 | CASEMGMT ---
Discharge Planning A list of?SNF providers including quality and resource use data and consistent with the patient's preferred geographic region, medical needs, and insurance network were provided via email from the [email or web address] Guide link. Jennifer Gonzales, Discharge Planning Asst.
--- NOTE | 2023-02-18 11:35 | CASEMGMT ---
RN CM called daughterClemencia, for initial transition planning/care coordination assessment as patient is confused. RN MARBELLA introduced self and role at [facility]. Daughter willing to participate in assessment and is able to answer all questions appropriately. Care providers, pharmacy, and demographics verified. Discussed progress with therapy and possible SNF at discharge. Daughter wants to discuss with her brother. Daughter states she has no further needs or concerns at this time. CM to follow for discharge planning needs that may arise. PCP: Jeffrey Specialists: Neurologist in [facility] Pharmacy: [facility] Insurance: Sienna ERAZO Prescription Benefit: yes Living Will/HPOA: yes, daughter and son Clemencia Collins and Bradley Montana LNOK: son and daughter Living Arrangements: patient lives with daughter in a single story home. Daughter assists with bathing and dressing, patient toilets self. Transportation: daughter DME/HHC: Patient has shower chair, grab bars, walker, rollator, wheelchair at home. Patient has had [facility] in the past. Daughter hire private aides to assist when she works. Disposition Plan: TBD, anticiapte SNF vs HHC pending progress with therapy. Lynn CADET, RN, CM
[2023-02-18] MEDS: Remdesivir 100 MG in 0.9% Normal Saline (250mL Bag) 230 ML 250 MG IV (20:43)
[2023-02-18] MEDS: Acetaminophen 325 MG Tablet 650 MG PO (20:43)
[2023-02-18] MEDS: Atorvastatin Calcium 20 MG Tablet PO (20:44)
[2023-02-19 03:15] VITALS: BP 152/94; PULSE 61; RESP 18; TEMP 36.4; O2SAT 97
[2023-02-19] MEDS: Acetaminophen 325 MG Tablet 650 MG PO (03:19)
[2023-02-19] MEDS: Levothyroxine 75 MCG Tablet PO (04:56)
[2023-02-19 07:16] VITALS: O2SAT 93
[2023-02-19 07:17] LABS: Absolute Lymphocyte Count 1.33 X10^3/uL (0.83-4.51); Hematocrit 38.3 % (37-47); Hemoglobin 12.2 g/dL (12.0-15.0); Lymphocyte # 1.33 X10^3/ul (0.83-4.51); Lymphocyte % 27.9 % (19-41); Mean Corp Hgb Conc 31.9 g/dL (32-36); Mean Corpuscular Hgb 35.2 pg (27.0-32.0); Mean Corpuscular Volume 110.4 fL (81-99); Mean Platelet Vol. 9.5 fl (6.2-12.0); Monocyte# 0.47 X10^3/uL; Monocyte% 9.9 % (0-10); NRBC Flagged by Analyzer 0 % (0-5); Neutrophil # 2.96 X10^3/uL (2.7-7.7); Platelet Count 134 K/mm3 (150-450); RBC Distribution Width CV 12.4 % (11.6-14.6); RBC Distribution Width SD 51.1 fl (35.1-43.9); Red Blood Count 3.47 M/mm3 (4.2-5.4); White Blood Count 4.8 K/mm3 (4.4-11.0)
[2023-02-19 08:01] LABS: Anion Gap 4 (5-15); BUN 30 mg/dL (7-18); BUN/Creat Ratio 31.4 RATIO (10-20); Calcium,Total 8.6 mg/dL (8.5-10.1); Chloride 109 mmol/L (98-107); Creatinine, Serum 0.96 mg/dL (0.55-1.02); EST Glomerular Filtration Rate 59 mL/min (>60); Est Glom Filt Rate - Afr Amer 71 mL/min (>60); Glucose 94 mg/dL (74-106); Potassium 3.8 mmol/L (3.5-5.1); Sodium Level 141 mmol/L (136-145)
[2023-02-19 08:22] VITALS: BP 144/95; PULSE 64; RESP 16; TEMP 36.6; O2SAT 96
[2023-02-19] MEDS: PARoxetine 10 MG Tablet PO (08:25)
[2023-02-19] MEDS: Heparin Injection (Vial) 5,000 UNIT/ML VIAL 5000 UNIT SC ×2 (08:25→22:47)
[2023-02-19] MEDS: dexAMETHasone 4 MG Tablet 6 MG PO (08:26)
[2023-02-19] MEDS: Donepezil HCl 10 MG Tablet PO (08:26)
[2023-02-19] MEDS: Aspirin 81 MG TAB.CHEW PO (08:26)
[2023-02-19] MEDS: Memantine Hydrochloride 10 MG Tablet PO ×2 (08:26→22:47)
[2023-02-19] MEDS: Cholecalciferol (VIT D3) 25 MCG TABLET (1,000 UNITS) 50 MCG PO (08:26)
[2023-02-19] MEDS: Losartan Potassium 50 MG Tablet PO (08:26)
--- NOTE | 2023-02-19 11:00 | PN.HOSP_ITS ---
Reason for Visit Reason for Visit: Diagnoses Altered mental status, unspecified (02/16/23) Subjective Subjective Patient is an 83-year-old lady admitted with progressive generalized weakness diagnosed with acute COVID-19 infection as well as UTI admitted to a monitored bed for further managem Objective Data Objective Data Vital Signs: Vital Signs Temp Pulse Resp BP Pulse Ox O2 Del Method O2 Flow Rate 97.9 F 64 16 144/95 H 96 Room Air 2 02/19/23 08:22 02/19/23 08:22 02/19/23 08:22 02/19/23 08:22 02/19/23 08:22 02/19/23 09:33 02/18/23 07:38 Oxygen Flow Rate (L/min) 2 Oxygen Delivery Method Room Air Weight: 74 kg Body Mass Index (BMI) 28.0 Intake & Output: Intake and Output for Last 24 Hours 02/17/23 02/18/23 02/19/23 23:59 23:59 23:59 Intake Total 1080 / 1080 660 / 660 Output Total 900 / 900 400 / 400 100 / 100 Balance 180 / 180 260 / 260 -100 / -100 Lab / Micro Data 02/19/23 07:05 02/19/23 07:05 Labs: Laboratory Results - last 24 hr 02/19/23 07:05: WBC 4.8, RBC 3.47 L, Hgb 12.2, Hct 38.3, MCV 110.4 H, MCH 35.2 H , MCHC 31.9 L, RDW Std Deviation 51.1 H, RDW Coeff of Bhupinder 12.4, Plt Count 134 L, MPV 9.5, Immature Gran % (Auto) 0.200, Neut % (Auto) 62.0, Lymph % (Auto) 27.9, [place] % (Auto) 9.9, Eos % (Auto) 0.0, Baso % (Auto) 0.0, Absolute Neuts (auto) 3.0, Absolute Lymphs (auto) 1.33, Nucleated RBC % 0, Sodium 141, Potassium 3.8, Chloride 109 H, Carbon Dioxide 28.0, Anion Gap 4 L, BUN 30 H, Creatinine 0.96, Estim Creat Clear Calc 37.00, Est GFR (MDRD) Af Amer 71, Est GFR (MDRD) Non-Af 59 L, BUN/Creatinine Ratio 31.4 H, Glucose 94, Calcium 8.6 Micro: Microbiology 02/17/23 03:25 Urine, Clean Catch Urine Culture - Final GNR lactose dry wall applicator 02/16/23 14:20 Nasal Secretion SARS-CoV-2 & FLU Antigen (Rapid) - Final SARS-CoV-2 (COVID 19) Physical Exam Narrative GENERAL: cooperative HEENT: Atraumatic; normocephalic EYES; Anicteric, Normal Conjunctiva NECK; supple, normal thyroid, RESPIRATORY: Diminished to auscultation CARDIOVASCULAR: Regular S1 S2, GI: soft, normoactive bowel sounds, : No Renal angle tenderness; EXTREMITIES: No edema, no clubbing, MUSCULOSKELETAL: no muscle wasting NEURO: Awake; no lateralizing signs. SKIN: No Rash PSYCH; Flat affect Assessment & Plan Assessment/Plan (1) Altered mental status: PLAN: Plan Patient is an 83-year-old lady admitted with progressive generalized weakness diagnosed with acute COVID-19 infection as well as UTI admitted to a monitored bed for further management 1. Acute COVID-19 infection with hypoxia ? Managed with Decadron, remdesivir as well as supplemental oxygen 2. Acute cystitis ? Present on admission cultures however did not show significant CFU's resulting in discontinuation of Rocephin which had been started on admission 3. Dyslipidemia -Patient is on statin therapy, continued at home dose 4. Essential hypertension ? Patient antihypertensives please on hold on admission with plans to resume once patient blood pressure stabilizes 5. Physical deconditioning - Requested for PT OT eval and executive secretary social welfare to assist with discharge planning 6. Hypothyroidism - Patient is on levothyroxine home dose continued 7. Mild dementia ? Patient is on Namenda continue 8. Depression with anxiety ? Patient is on Paxil continue 9. DVT prophylaxis ? SC heparin Time spent in the patient's overall evaluation,decision-making process, review of diagnostic data, adjustment of management, discussion with other providers, nursing nursing and ancillary staff involved in patient's care documentation, 50 Minutes Charges/Coding Visit Charges Inpatient E&M: 90252 [facility] L3
--- NOTE | 2023-02-19 13:46 | CASEMGMT ---
Addendum entered by Jennifer Gonzales 02/19/23 14:58: [facility] via [employer]. SW updated. Jennifer Gonzales, Discharge Planning Asst. Original Note: Discharge Planning The following SNFs were requested by family; [facility], [facility], [facility], [facility], [facility], [facility], [facility], [facility], and [facility]. Due to positive covid status, calls were placed prior to referrals being sent and none are currently taking Covid patients. Family also requested [facility] but they do not provide intermediate. Awaiting call from [facility]. An email was sent to patients son with a list of local facilities accepting covid + patients. SW updated.
[2023-02-19 15:00] VITALS: BP 126/72; PULSE 64; RESP 16; TEMP 36.7; O2SAT 93
[2023-02-19 22:36] VITALS: BP 158/77; PULSE 62; RESP 16; TEMP 36.4; O2SAT 99
[2023-02-19] MEDS: Remdesivir 100 MG in 0.9% Normal Saline (250mL Bag) 230 ML 250 MG IV (22:44)
[2023-02-19] MEDS: Atorvastatin Calcium 20 MG Tablet PO (22:47)
[2023-02-20 05:40] VITALS: BP 158/72; PULSE 56; RESP 18; TEMP 36.4; O2SAT 96
[2023-02-20] MEDS: Levothyroxine 75 MCG Tablet PO (05:46)
[2023-02-20 08:26] VITALS: O2SAT 94
--- NOTE | 2023-02-20 08:26 | PN.HOSP_ITS ---
Reason for Visit Reason for Visit: Diagnoses Altered mental status, unspecified (02/16/23) Subjective Subjective Approval has been obtained for discharge to a assisted facility patient will be assessed for discharge Objective Data Objective Data Vital Signs: Vital Signs Temp Pulse Resp BP Pulse Ox O2 Del Method O2 Flow Rate 97.6 F L 56 L 18 158/72 H 96 Room Air 2 02/20/23 05:40 02/20/23 05:40 02/20/23 05:40 02/20/23 05:40 02/20/23 05:40 02/20/23 05:40 02/18/23 07:38 Oxygen Flow Rate (L/min) 2 Oxygen Delivery Method Room Air Weight: 74 kg Body Mass Index (BMI) 28.0 Intake & Output: Intake and Output for Last 24 Hours 02/18/23 02/19/23 02/20/23 23:59 23:59 23:59 Intake Total 660 / 660 250 / 250 Output Total 400 / 400 1200 / 1200 100 / 100 Balance 260 / 260 -950 / -950 -100 / -100 Lab / Micro Data 02/19/23 07:05 02/19/23 07:05 Micro: Microbiology 02/17/23 03:25 Urine, Clean Catch Urine Culture - Final GNR 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 SKIN: No Rash PSYCH; Flat affect Assessment & Plan Assessment/Plan (1) Altered mental status: PLAN: Plan Patient is an 83-year-old lady admitted with progressive generalized weakness diagnosed with acute COVID-19 infection as well as UTI admitted to a [facility] b ed for further management 1. Acute COVID-19 infection with hypoxia ? Managed with Decadron, remdesivir as well as supplemental oxygen 2. Acute cystitis ? Present on admission cultures however did not show significant CFU's resulting in discontinuation of Rocephin which had been started on admission 3. Dyslipidemia -Patient is on statin therapy, continued at home dose 4. Essential hypertension ? Patient antihypertensives please on hold on admission with plans to resume once patient blood pressure stabilizes 5. Physical deconditioning - Requested for PT OT eval and social media marketing analyst to assist with discharge planning 6. Hypothyroidism - Patient is on levothyroxine home dose continued 7. Mild dementia ? Patient is on Namenda continue 8. Depression with anxiety ? Patient is on Paxil continue 9. DVT prophylaxis ? SC heparin Time spent in the patient's overall evaluation,decision-making process, review of diagnostic data, adjustment of management, discussion with other providers, nursing nursing and ancillary staff involved in patient's care documentation, 35 Minutes Charges/Coding Visit Charges Inpatient E&M: 88586 Subs Hosp L2
[2023-02-20 09:06] VITALS: BP 157/85; PULSE 62; RESP 16; TEMP 36.5; O2SAT 96
[2023-02-20] MEDS: dexAMETHasone 4 MG Tablet 6 MG PO (09:09)
[2023-02-20] MEDS: Donepezil HCl 10 MG Tablet PO (09:09)
[2023-02-20] MEDS: Heparin Injection (Vial) 5,000 UNIT/ML VIAL 5000 UNIT SC (09:09)
[2023-02-20] MEDS: Aspirin 81 MG TAB.CHEW PO (09:09)
[2023-02-20] MEDS: Cholecalciferol (VIT D3) 25 MCG TABLET (1,000 UNITS) 50 MCG PO (09:09)
[2023-02-20] MEDS: Memantine Hydrochloride 10 MG Tablet PO (09:10)
[2023-02-20] MEDS: PARoxetine 10 MG Tablet PO (09:10)
[2023-02-20] MEDS: Losartan Potassium 50 MG Tablet PO (09:10)
--- NOTE | 2023-02-20 10:00 | TREXTCAR_ITS ---
Diet Diet Order/Speech Therapy: 02/16/23 16:21 Diet: Cardiac - Heart Healthy Food consistency:: Regular Liquid Consistency:: Regular/Thin Type of Dietary Supplement:: Ensure Plus High Protein Diet Comments: EPHP BID - vanilla w/lunch, chocolate w/dinner Routine Orders/Code Status Code Status: DNRCC-A Therapies Physical Therapy: Eval and Treat Occupational Therapy: Eval and Treat Problem/Diagnosis (1) Altered mental status: Status: Acute Code(s): R41.82 - Altered mental status, unspecified Plan Patient is an 83-year-old lady admitted with progressive generalized weakness diagnosed with acute COVID-19 infection as well as UTI admitted to a monitored bed for further management 1. Acute COVID-19 infection with hypoxia ? Managed with Decadron, remdesivir as well as supplemental oxygen 2. Acute cystitis ? Present on admission cultures however did not show significant CFU's resulting in discontinuation of Rocephin which had been started on admission 3. Dyslipidemia -Patient is on statin therapy, continued at home dose 4. Essential hypertension ? Patient antihypertensives please on hold on admission with plans to resume once patient blood pressure stabilizes 5. Physical deconditioning - Requested for PT OT eval and social welfare research worker to assist with discharge planning 6. Hypothyroidism - Patient is on levothyroxine home dose continued 7. Mild dementia ? Patient is on Namenda continue 8. Depression with anxiety ? Patient is on Paxil continue 9. DVT prophylaxis ? SC heparin Time spent in the patient's overall evaluation,decision-making process, review of diagnostic data, adjustment of management, discussion with other providers, nursing nursing and ancillary staff involved in patient's care documentation, 35 Minutes Allergies/Procedures Done in Hospital Allergies No Known Allergies Allergy (Verified 01/16/21 00:21) Type of Care/Length of Stay Estimated LOS: Convalescent Care Less Than 30 days Type of Care Needed: Skilled Rehab Potential: Good Prognosis: Good Additional Orders/Day of Discharge Day of Discharge: 02/20/23 Dietary and Speech Recommendations Dietitian Recommendations/Changes: If meal intake becomes <75% usual, could consider liberalizing diet to Regular to provide the most menu options for patient to be sure she is able to consume sufficient energy and protein. Order Ensure Plus HP BID to promote adequate energy and protein intake. Discharge Plan Admission Admit Date/Time: 02/16/23 16:19 Attending Provider: Feliberto Daneilson Primary Care Provider: Kwan Murphy Chi Consulting Providers: Cuca Baker; Guicho Acosta Discharge Orders/Prescriptions Prescriptions: New dexamethasone 4 mg Tablet 6 mg PO DAILY 7 Days Qty: 0 0RF Chloraseptic Sore Throat 6-10 mg Lozenge 1 ysabel mucous membrane Q2H PRN PRN (Reason: SORE THROAT) Qty: 0 0RF Continued aspirin 81 MG tablet,chewable 81 mg PO DAILY@0800 Patient Comments: heart health atorvastatin 20 MG tablet 20 mg PO QHS Patient Comments: lower cholesterol paroxetine HCl 10 mg tablet 10 mg PO DAILY donepezil 10 mg tablet 10 mg PO DAILY levothyroxine 75 mcg tablet 75 mcg PO DAILY memantine 10 mg tablet 10 mg PO BID cholecalciferol (vitamin D3) [Vitamin D3] 50 mcg (2,000 unit) Capsule 50 mcg PO DAILY losartan 100 mg tablet 100 mg PO DAILY Patient Comments: TAKE 1 TABLET BY MOUTH ONCE DAILY Referrals / Follow Up: Kwan Murphy Chi, MD [Primary Care Provider] - Within 2 Weeks Disposition Disposition (needs filled in before D/C Order can be placed): Penitentiary Facility
--- NOTE | 2023-02-20 10:03 | DS.PCM_ITS ---
Providers Date of Admission: 02/16/23 Date of Discharge: 02/20/23 Primary Care Physician: Dr. Kwan Murphy MD Reason For Visit: COVID Diagnosis Discharge Diagnosis (1) Altered mental status: Status: Acute Code(s): R41.82 - Altered mental status, unspecified Plan Patient is an 83-year-old lady admitted with progressive generalized weakness diagnosed with acute COVID-19 infection as well as UTI admitted to a monitored bed for further management 1. Acute COVID-19 infection with hypoxia ? Managed with Decadron, remdesivir as well as supplemental oxygen 2. Acute cystitis ? Present on admission cultures however did not show significant CFU's resulting in discontinuation of Rocephin which had been started on admission 3. Dyslipidemia -Patient is on statin therapy, continued at home dose 4. Essential hypertension ? Patient antihypertensives please on hold on admission with plans to resume once patient blood pressure stabilizes 5. Physical deconditioning - Requested for PT OT eval and health and social care teacher to assist with discharge planning 6. Hypothyroidism - Patient is on levothyroxine home dose continued 7. Mild dementia ? Patient is on Namenda continue 8. Depression with anxiety ? Patient is on Paxil continue 9. DVT prophylaxis ? SC heparin Time spent in the patient's overall evaluation,decision-making process, review of diagnostic data, adjustment of management, discussion with other providers, nursing nursing and ancillary staff involved in patient's care documentation, 35 Minutes Medications at Discharge Home Medications aspirin 81 mg chewable tablet 81 mg PO DAILY@0800 HEART 09/01/14 atorvastatin 20 mg tablet 20 mg PO QHS LOWERS CHOLESTEROL 09/01/14 cholecalciferol (vitamin D3) 50 mcg (2,000 unit) capsule (Vitamin D3) 50 mcg PO DAILY bone health 01/16/21 donepezil 10 mg tablet 10 mg PO DAILY memory 01/16/21 levothyroxine 75 mcg tablet 75 mcg PO DAILY thyroid 01/16/21 memantine 10 mg tablet 10 mg PO BID memory 01/16/21 paroxetine HCl 10 mg tablet 10 mg PO DAILY depression 01/16/21 losartan 100 mg tablet 100 mg PO DAILY blood pressur 02/16/23 benzocaine 6 mg-menthol 10 mg lozenges (Chloraseptic Sore Throat) 1 ysabel mucous membrane Q2H PRN PRN SORE THROAT #0 ea 02/20/23 dexamethasone 4 mg tablet 6 mg (1.5 x 4 mg) PO DAILY 7 days #0 tabs 02/20/23 Physical Exam Narrative GENERAL: cooperative HEENT: Atraumatic; normocephalic EYES; Anicteric, Normal Conjunctiva NECK; supple, normal thyroid, RESPIRATORY: Diminished to auscultation CARDIOVASCULAR: Regular S1 S2, GI: soft, normoactive bowel sounds, : No Renal angle tenderness; EXTREMITIES: No edema, no clubbing, MUSCULOSKELETAL: no muscle wasting NEURO: Awake; no lateralizing signs. 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 02/16/23 14:20 Nasal Secretion SARS-CoV-2 & FLU Antigen (Rapid) - Final SARS-CoV-2 (COVID 19) D/C Instructions Discharge Diet: No restrictions Discharge Activity: Return to Normal Activity Call your doctor if you observe: Fever of 101 or Higher, Shortness of breath, Fainting spells and Chest pain Meaningful Use Info Meaningful Use Diagnoses (Choose all that apply): None applicable Discharge Plan Admission Admit Date/Time: 02/16/23 16:19 Attending Provider: Feliberto Danielson Primary Care Provider: Kwan Murphy Chi Consulting Providers: Cuca Baker; Guicho Acosta Discharge Orders/Prescriptions Prescriptions: New dexamethasone 4 mg Tablet 6 mg PO DAILY 7 Days Qty: 0 0RF Chloraseptic Sore Throat 6-10 mg Lozenge 1 ysabel mucous membrane Q2H PRN PRN (Reason: SORE THROAT) Qty: 0 0RF Continued aspirin 81 MG tablet,chewable 81 mg PO DAILY@0800 Patient Comments: heart health atorvastatin 20 MG tablet 20 mg PO QHS Patient Comments: lower cholesterol paroxetine HCl 10 mg tablet 10 mg PO DAILY donepezil 10 mg tablet 10 mg PO DAILY levothyroxine 75 mcg tablet 75 mcg PO DAILY memantine 10 mg tablet 10 mg PO BID cholecalciferol (vitamin D3) [Vitamin D3] 50 mcg (2,000 unit) Capsule 50 mcg PO DAILY losartan 100 mg tablet 100 mg PO DAILY Patient Comments: TAKE 1 TABLET BY MOUTH ONCE DAILY Referrals / Follow Up: Kwan Murphy Chi, MD [Primary Care Provider] - Within 2 Weeks Disposition Disposition (needs filled in before D/C Order can be placed): [facility]irement Facility Charges/Coding Visit Charges Inpatient E&M: 04291 Disch Hosp >30min
--- NOTE | 2023-02-20 10:32 | CASEMGMT ---
[facility] via [employer]. HOSSEIN completed a 7000 in [employer] system. Plan: d/c to [facility] under skilled level of care on a convalescent stay. [facility] will transport patient. Sushila SAWYER
--- NOTE | 2023-02-20 10:47 | CASEMGMT ---
Discharge Planning Discharge orders, signed med list, and transport time sent via [employer] to [facility]. [facility] transport patient by cot at 12p. Nursing, SW, and patients son updated. Jennifer Gonzales, Discharg Planning Asst.
--- NOTE | 2023-02-20 11:09 | PHA.DC.MR.R ---
Pharmacy [place] Med Reconciliation Pharmacy Service has performed discharge medication reconciliation for this patient. The patient's discharge medication list was reviewed for discrepancies and discrepancies were resolved. Medications at Discharge Home Medications aspirin 81 mg chewable tablet 81 mg PO DAILY@0800 HEART 09/01/14 atorvastatin 20 mg tablet 20 mg PO QHS LOWERS CHOLESTEROL 09/01/14 cholecalciferol (vitamin D3) 50 mcg (2,000 unit) capsule (Vitamin D3) 50 mcg PO DAILY bone health 01/16/21 donepezil 10 mg tablet 10 mg PO DAILY memory 01/16/21 levothyroxine 75 mcg tablet 75 mcg PO DAILY thyroid 01/16/21 memantine 10 mg tablet 10 mg PO BID memory 01/16/21 paroxetine HCl 10 mg tablet 10 mg PO DAILY depression 01/16/21 losartan 100 mg tablet 100 mg PO DAILY blood pressur 02/16/23 benzocaine 6 mg-menthol 10 mg lozenges (Chloraseptic Sore Throat) 1 ysabel mucous membrane Q2H PRN PRN SORE THROAT #0 ea 02/20/23 dexamethasone 4 mg tablet 6 mg (1.5 x 4 mg) PO DAILY 7 days #0 tabs 02/20/23
[2023-02-20 11:22] VITALS: BP 151/67; PULSE 59; RESP 16; TEMP 36.6; O2SAT 94
== END 2023-02-20 12:56 | disposition skilled nursing facility (03) | DRG 177 ==
LOC: ED 14:55 → PCU 16:56
PROVIDERS: Family Medicine; Admitting Provider Internal Medicine; Emergency Provider Emergency Medicine; PCP Family Medicine Geriatric Medicine; Visit Provider Internal Medicine
DX: U07.1 COVID-19 (principal); G93.41 Metabolic encephalopathy; F03.A0 Unspecified dementia, mild, without behavioral disturbance, psychotic disturbance, mood disturbance, and anxiety; E03.9 Hypothyroidism, unspecified; I10 Essential (primary) hypertension; F32.A Depression, unspecified; E78.00 Pure hypercholesterolemia, unspecified; F41.9 Anxiety disorder, unspecified; R09.02 Hypoxemia; Z79.82 Long term (current) use of aspirin; Z79.890 Hormone replacement therapy; Z79.899 Other long term (current) drug therapy
CPT/HCPCS: 36415; 70450; 71045; 71275; 80048; 80053; 81001; 82248; 82550; 83605; 83690; 83735; 83880; 84100; 84443; 84484; 85025; 85379; 85610; 86140; 87086; 87088; 87428; 93005; 97110; 97116; 97162; 97166; 97530; 97535; 97802; 99252; 99285; J7050; Q9967; A4216; G0463; J0248

== ENCOUNTER 2023-04-14 20:04 | Inpatient (IN) | payer MEDICARE, BC, SELFPAY ==
[2023-04-14] VITALS (9 sets, daily range): BP systolic 148–211; BP diastolic 90–114; PULSE 82–99; RESP 16–24; TEMP 36.2–36.8; O2SAT 84–99; BMI 29.5; BMI 27.8
--- NOTE | 2023-04-14 20:38 | EKG12_ITS ---
Test Reason : DYSRHYTHMIA Blood Pressure : / mmHG Vent. Rate : 086 BPM Atrial Rate : 086 BPM P-R Int : 202 ms QRS Dur : 088 ms QT Int : 288 ms P-R-T Axes : 062 023 030 degrees QTc Int : 344 ms Normal sinus rhythm Nonspecific ST and T wave abnormality Abnormal ECG Confirmed by ROLAND MARRERO, ELIANA ([id number]), editorial writer KANDIS NARVAEZ ([id number]) on 04/20/2023 10:10:36 AM Referred By: SPEEDY Confirmed By:ELIZABETH WATKINS MD
--- NOTE | 2023-04-14 20:46 | ED.VIS.FALL ---
HPI HPI - Fall History of Present Illness Chief Complaint: Fall Informant: patient and family (Daughter who lives with the patient.) Occured/Mechanism Occurred: Today Usually ambulates: Walker Pain/Injury Pain Location: none Associated Symptoms Associated Symptoms: Positive for Weakness and Inability to ambulate; Negative for Parasthesias, Loss of function, Loss of consciousness or Amnesia Narrative Narrative: 83-year-old female history of dementia and had COVID in February of this year. She was hospitalized for that then went to extended-care facility for rehab and has been home since late February. Daughter and patient live together. Daughter works during the day and has home health care then. She went out to dinner tonight left her mom around 5 got home at 7 when she got home she found her mom on the floor in the bathroom. No complaints. She called the squad to help get her up they found that she was hypoxic and brought her into the hospital. Patient denies any injuries. She is on no blood thinners. She denies any headache or neck pain. Daughter states she has not been ill recently. Prior similar symptoms: Yes Recent Illness/Hospitalization: Yes PFSH PFSH Medical History Arthritis Dementia Difficulty balancing Fatigue Hay fever High cholesterol History of bronchitis Hypertension Incontinence Severe headache Home Medications aspirin 81 mg chewable tablet 81 mg PO DAILY@0800 HEART 09/01/14 [History Last Taken 01/29/17] atorvastatin 20 mg tablet 20 mg PO QHS LOWERS CHOLESTEROL 09/01/14 [History Last Taken 01/28/17] cholecalciferol (vitamin D3) 50 mcg (2,000 unit) capsule (Vitamin D3) 50 mcg PO DAILY bone health 01/16/21 [History Last Taken Unknown] donepezil 10 mg tablet 10 mg PO DAILY memory 01/16/21 [History Last Taken Unknown] levothyroxine 75 mcg tablet 75 mcg PO DAILY thyroid 01/16/21 [History Last Taken Unknown] memantine 10 mg tablet 10 mg PO BID memory 01/16/21 [History Last Taken Unknown] paroxetine HCl 10 mg tablet 10 mg PO DAILY depression 01/16/21 [History Last Taken Unknown] losartan 100 mg tablet 100 mg PO DAILY blood pressur 02/16/23 [History Last Taken 02/15/23] benzocaine 6 mg-menthol 10 mg lozenges (Chloraseptic Sore Throat) 1 ysabel mucous membrane Q2H PRN PRN SORE THROAT #0 ea 02/20/23 [Rx Last Taken Unknown] Allergy/AdvReac Type Severity Reaction Status Date / Time No Known Allergies Allergy Verified 04/14/23 20:08 Surgical History Hx of hysterectomy Social History Smoking Status: Never smoker alcohol intake: never ROS ROS ED ROS Narrative Denies recent illness. Review of Systems ROS Unobtainable: Denies due to encephalopathy Constitutional Constitutional ED: Denies chills or fever(s) Eyes Eyes: Denies blurry vision ENT ENT ED: Denies ear pain Cardiovascular Cardiovascular: Denies chest pain Respiratory/Chest Respiratory/Chest: Denies cough Gastrointestinal Gastrointestinal: Denies abdominal pain, diarrhea, nausea or vomiting Genitourinary Genitourinary ED: Denies dysuria or hematuria Musculoskeletal Musculoskeletal: Denies arthralgias or back pain Integumentary Denies abscess or Abrasions Neurologic Neurologic: Denies headache(s) Psychiatric Psychiatric: Denies anxiety or depression Endocrine Endocrinology: Denies polydipsia or polyphagia Hematologic/Lymphatic Hematologic/Lymphatic: Denies easy bleeding, easy bruising or lymphadenopathy Allergic/Immunologic Allergic/Immunologic ED: Denies mouth swelling, tongue swelling or urticaria EXAM Physical Exam Narrative Exam Narrative: 83-year-old female lying in bed. Vital signs stable except for pulse ox was 84% on room air. On 6 L she is 94%. She is afebrile. She does not look septic or toxic. She does look dehydrated. H EENT exam pupils round reactive light. Dry mucous membranes. No signs of trauma to her face or scalp. Nontender. No hematoma. Neck nontender. Trachea midline. Lungs clear to auscultation bilaterally. Heart regular rhythm rate about 90 no murmur. Chest wall and ribs nontender. Abdomen soft nontender. Pelvic girdle intact. 5 out of 5 principal java developer strength. Dorsi plantarflexion intact. No shortening or rotation to either hips. No tenderness or deformity to the upper extremities. Back nontender no signs of trauma. No bruising. Neurologically she is awake. She is alert. She knows her daughter is at bedside. She knows she is at the hospital. She knows it is the winter. She cannot get the exact month. But she knew her daughter's birthday was in February. Const Vital Signs: 04/14/23 20:05 04/14/23 20:10 04/14/23 20:44 Temperature 97.1 F L Temperature Source Temporal Pulse Rate 88 Respiratory Rate 16 Respiratory Effort Normal Non-Labored Respiratory Pattern Normal Blood Pressure 162/101 H Blood Pressure Mean 121 Pulse Ox 84 94 Oxygen Delivery Method Room Air Nasal Cannula Nasal Cannula Oxygen Flow Rate (L/min) 4 6 04/14/23 20:54 04/14/23 21:00 04/14/23 21:30 Temperature Temperature Source Pulse Rate 83 82 Respiratory Rate 23 H 22 H Respiratory Effort Respiratory Pattern Blood Pressure 173/100 H 188/114 H Blood Pressure Mean 120 135 Pulse Ox 99 99 Oxygen Delivery Method Nasal Cannula Oxygen Flow Rate (L/min) 6 04/14/23 22:00 04/14/23 22:30 04/14/23 22:58 Temperature 98.3 F Temperature Source Pulse Rate 84 99 90 Respiratory Rate 23 H 17 24 H Respiratory Effort Respiratory Pattern Blood Pressure 192/106 H 211/113 H 148/90 H Blood Pressure Mean 129 138 109 Pulse Ox 99 92 92 Oxygen Delivery Method Oxygen Flow Rate (L/min) 6 0 04/14/23 23:00 Temperature Temperature Source Pulse Rate 90 Respiratory Rate 22 H Respiratory Effort Respiratory Pattern Blood Pressure 164/103 H Blood Pressure Mean 121 Pulse Ox 93 Oxygen Delivery Method Oxygen Flow Rate (L/min) Positive well nourished and well developed; Negative for cachectic, contractures or unkempt General Appearance ED: well developed and NAD; Negative for unkempt, cachectic or contractures Nutritional Appearance: Negative for cachectic HEENT Reports normocephalic HEENT Narrative: Dry mucous membranes. atraumatic; Negative for trauma, contusion, hematoma or tenderness Eyes PERRL and EOMs intact bilaterally General Eye ED: Negative for pale conjunctiva, scleral icterus or other Neck full ROM, no lymphadenopathy and supple Chest Wall inspection of chest normal and palpation of chest normal Resp normal respiratory effort, no retractions and clear to auscultation bilaterally Effort and Inspection: Negative for pain with movement Auscultation: Negative for rales, rhonchi, wheezes or diminished lung sounds Cardio regular rate, regular rhythm, S1 normal heart sound, S2 normal heart sound and no murmurs Rate: Negative for bradycardia Rhythm: Negative for abnormal rhythm Bruits: Negative for other GI non-tender, non-distended and no masses Inspection: Negative for abdominal distention Auscultation: normoactive bowel sounds Palpation: soft; Negative for guarding or rebound tenderness present Back/Spine no CVA tenderness General Back: Negative for CVA tenderness Cervical Spine: Negative for cervical spine tenderness Thoracic Spine / Upper Back: Negative for ROM limited Lumbar Spine / Lower Back: Negative for lumbar spinal tenderness or paraspinal muscle tenderness Neuro moves all extremities and no focal motor deficits Neuro Narrative: Knew she was in the hospital. Knew her daughter was at bedside. Was in the winter. And knew her daughter's birthday was in February. Sensorium / Orientation: alert, oriented to person, oriented to place and confused; Negative for oriented to time, lethargic or stuporous Motor Exam: strength 5/5 throughout Psych mental status grossly normal and thought process normal Appearance: Negative for unkempt Attitude: No agitated Mood & Affect: Negative for depressed, anxious or tearful Skin Lesions: no lesions Rashes: no rashes MDM MDM MDM Narrative Medical decision making narrative: 83-year-old female with dementia COVID in February with hypoxia and a fall. She must have been hypoxic in February at that time they did a CTA of her chest which was negative. She has no signs of trauma. Screening labs to be obtained. I will do a D-dimer due to the hypoxia. She has no history of blood clots. Repeat exam at 10:30 PM. Unchanged. Chest wall nontender. Abdomen nontender. Moving all 4 extremities. Awake and alert. I discussed the test results with the patient and her daughter. Due to her hypoxia of uncertain cause at this time we are obtaining a CTA. She will need to be admitted. She also has an elevated troponin which may be due to the hypoxia versus a cardiovascular event. I have already spoken to the hospitalist patient will be a full admit to the PCU. Awaiting CTA to be done and read. CTA results came back. Radiologist is gone pleural effusion. Right upper lobe pneumonia. And pulmonary emboli. I spoke to the hospitalist. He is already written for antibiotics and anticoagulation with Lovenox. History & Record Review Discussion w/independent historian: Patient and Family Additional record(s) reviewed:: Prior inpatient record, Prior outpatient record, Prior ED visit and Prior labs Lab Data Attestation: I reviewed the patient's lab results. Lab results narrative: CBC shows no elevated white count 9.8. H&H 13 and 40. Platelets 149 slightly low. Electrolytes show potassium 3.1. Gap 5. BUN 21 creatinine 1.1. Glucose 160. Troponins elevated 154. COVID, flu and RSV negative. Labs: Laboratory Results - last 24 hr 04/14/23 20:20 WBC 11.8 H RBC 3.88 L Hgb 13.8 Hct 44.0 MCV 113.4 H MCH 35.6 H MCHC 31.4 L RDW Std Deviation 52.7 H RDW Coeff of Bhupinder 12.5 Plt Count 149 L MPV 9.8 Immature Gran % (Auto) 1.900 H Neut % (Auto) 85.5 H Lymph % (Auto) 7.7 L Wheeler % (Auto) 3.7 Eos % (Auto) 0.9 Baso % (Auto) 0.3 Absolute Neuts (auto) 10.1 H Absolute Lymphs (auto) 0.90 Nucleated RBC % 0 D-Dimer Quant (PE/DVT) > 20.00 H* Sodium 145 Potassium 3.1 L Chloride 111 H Carbon Dioxide 29.0 Anion Gap 5 BUN 21 H Creatinine 1.18 H Estim Creat Clear Calc 35.21 Est GFR (MDRD) Af Amer 56 L Est GFR (MDRD) Non-Af 46 L BUN/Creatinine Ratio 17.8 Glucose 160 H Calcium 9.1 Troponin I High Sens 154 H* Radiography Chest X-Ray - ED: 1 View, Read by ED Physician, Read by Radiologist, Heart, Mediastinum, Bony Structures, Chronic Changes and Right Infiltrate Diagnostic Testing: Clinical Impression(s) from Imaging Studies Chest X-Ray 04/14/23 20:48 IMPRESSION: Right lower lung infiltrate or edema. Electronically Signed: Sylvester Low MD at 21:46 EST , Chest CTA 04/14/23 22:20 IMPRESSION: Abnormal CTA chest examination, with peripheral right pulmonary embolism. Small pleural effusions. Small patchy right upper lung infiltrate. Electronically Signed: Sylvester Low MD at 23:27 EST , ADDENDUM: 04/14/23 3402 IMPRESSION: Abnormal CTA chest examination, with peripheral right pulmonary embolism. Small pleural effusions. Small patchy right upper lung infiltrate. N.B. : Caterina Sanchez RN, confirmed on 04/14/2023 23:29:19 (ET) that the healthcare facility has received the radiology report. Electronically Signed: Sylvester Low MD at 23:27 EST , Chest x-ray, moderate portable, single view interpreted by myself and radiologist shows density in the right lower lobe which may be edema versus infiltrate. Recently she has not had any pneumonia symptoms. Due to the hypoxia CTA will be obtained to help clarify this. Rhythm Strip Rhythm Strip: Sinus Rhythm Rate: 86 Ectopy: None EKG Initial EKG: Attestation: I personally reviewed and interpreted this EKG as follows: Interpretation: Sinus Rhythm and No Acute Injury Pattern Comments: Normal sinus rhythm rate 86 no acute signs of PA or ischemia. Discharge Plan Dx/Rx/DC Orders Clinical Impression: History of dementia, Hypoxia, Fall, Elevated troponin, Pleural effusion, Pulmonary emboli, Pneumonia Disposition Disposition: Acute Care Hospital [facility] Discharge Date/Time: 04/14/23 23:36
--- NOTE | 2023-04-14 20:48 | RAD_ITS ---
STUDY: X-RAY CHEST REASON FOR EXAM: Female, 83 years old. Chest pain TECHNIQUE: Single AP portable view of the chest. COMPARISON: February 16, 2023 FINDINGS: There are monitoring devices. There are mild right lower lung increased opacities. There is no demonstrated pleural abnormality. Normal size heart. Normal mediastinum and timothy. Normal visualized pulmonary arteries. Normal visualized aortic arch and descending thoracic aorta. There is demineralization of the osseous structures. Normal visualized ribs, clavicles, and shoulders. There is no demonstrated abnormality of the visualized soft tissue structures of the upper abdomen. RAD/Chest 1 View (Portable) IMPRESSION: Right lower lung infiltrate or edema. Electronically Signed: Sylvester Low MD at 21:46 EST ,
[2023-04-14 20:59] LABS: Absolute Neutrophil Count 10.1 X10^3/uL (2.0-7.7); Basophil# 0.04 X10^3/uL; Basophil% 0.3 % (0-1); Eosinophils% 0.9 % (0-5); Hemoglobin 13.8 g/dL (12.0-15.0); Lymphocyte % 7.7 % (19-41); Mean Corp Hgb Conc 31.4 g/dL (32-36); Mean Corpuscular Hgb 35.6 pg (27.0-32.0); Mean Corpuscular Volume 113.4 fL (81-99); Mean Platelet Vol. 9.8 fl (6.2-12.0); Monocyte# 0.43 X10^3/uL; Monocyte% 3.7 % (0-10); NRBC Flagged by Analyzer 0 % (0-5); Neutrophil # 10.06 X10^3/uL (2.7-7.7); Neutrophil % 85.5 % (47-70); Platelet Count 149 K/mm3 (150-450); RBC Distribution Width CV 12.5 % (11.6-14.6); RBC Distribution Width SD 52.7 fl (35.1-43.9); Red Blood Count 3.88 M/mm3 (4.2-5.4); White Blood Count 11.8 K/mm3 (4.4-11.0)
[2023-04-14] MEDS: 0.9% Normal Saline (1000mL) 1,000 ML 999 ML IV (21:08)
[2023-04-14 21:27] LABS: Anion Gap 5 (5-15); BUN 21 mg/dL (7-18); BUN/Creat Ratio 17.8 RATIO (10-20); Calcium,Total 9.1 mg/dL (8.5-10.1); Chloride 111 mmol/L (98-107); Creatinine, Serum 1.18 mg/dL (0.55-1.02); EST Glomerular Filtration Rate 46 mL/min (>60); Est Glom Filt Rate - Afr Amer 56 mL/min (>60); Estimated Creatinine Clearance 35.21 ml/min; Glucose 160 mg/dL (74-106); Potassium 3.1 mmol/L (3.5-5.1); Sodium Level 145 mmol/L (136-145); Troponin-I HS 154 pg/mL (3.0-54.0)
--- NOTE | 2023-04-14 22:20 | CT_ITS ---
STUDY: CTA CHEST REASON FOR EXAM: Female, 83 years old. Hypoxia. Pneumonia vs PE vs other RADIATION DOSAGE (If Supplied By Facility): CTDIvol = ( 13.08 ) mGy, DLP = ( 473.93 ) mGycm TECHNIQUE: The examination was performed with the intravenous administration of 100mL [id number]-370. Post-processing of the angiographic images was performed, with multiplanar reformation and 3D reconstruction. Individualized dose optimization techniques were used for this CT. COMPARISON: February 17, 2023 FINDINGS: Normal enhancement of the main pulmonary artery and right and left pulmonary arteries. There is filling defect involving fifth order branch of right lower lung pulmonary artery consistent with pulmonary embolism. There is atherosclerotic calcification of the aortic arch with tortuosity. There is no demonstrated aortic dissection. There are calcifications of the coronary arteries. Normal mediastinum. Normal hilar regions. Normal visualized trachea and bronchi. The lungs are well expanded. There is mild patchy right upper lobe consolidation. There are mild interstitial increased opacities of the lungs. There are small bilateral pleural effusions. Normal chest wall structures. There are degenerative changes of thoracic spine. Normal visualized upper abdomen. CT/CTA Chest W/WO Contrast IMPRESSION: Abnormal CTA chest examination, with peripheral right pulmonary embolism. Small pleural effusions. Small patchy right upper lung infiltrate. Electronically Signed: Sylvester Low MD at 23:27 EST ,
--- NOTE | 2023-04-14 22:32 | HP.PCM.HOS_ITS ---
HPI - General General Date of Admission: 04/14/23 Date of Service: 04/14/23 Chief Complaint: Fall and SOB. HPI Narrative DONALD MONTANA, is a 83 F with a past medical history of essential hypertension, hyperlipidemia, hypothyroidism, overweight; with BMI of 29.5 this admission, dementia, depression with anxiety, OA and history of admission here in late February 2023 for COVID-19 with patient then sent to [facility] for rehabilitation until she could return home who presents to [facility] ER complaining of fall and SOB. Ms. Montana reports her symptoms began approximately six hours prior to admission after her daughter went out to dinner, leaving around 5:00 PM and then returning around 7:00 PM when she found her mother on the floor of their bathroom. She then activated EMS and they found her to be hypoxic in the ~84% saturation range on RA. She denies associated fever, chills, nausea, vomiting, chest pain, chest pressure, palpitations, history of VTE or significant injuries and she also denies being on blood thinners or other recent illness but she is lethargic. In the ER she was noted to have a CXR positive for RLL infiltrate consistent with Pneumonia with an elevated initial troponin of 154 pg/mL present on admission followed by a second troponin of 1,474 pg/mL worrisome for possible NSTEMI complicated by laboratory evidence of Hypokalemia of 3.1 mmol/L present on admission with clinical evidence of metabolic encephalopathy and acute respiratory insufficiency and uncontrolled hypertension of 211/113 mm Hg present on admission and she was then admitted to the PCU for ongoing care for a stay that is expected to be greater than 48 hours. [facility] Medical History Arthritis Dementia Difficulty balancing Fatigue Hay fever High cholesterol History of bronchitis Hypertension Incontinence Severe headache Home Medications aspirin 81 mg chewable tablet 81 mg PO DAILY@0800 HEART 09/01/14 [History Last Taken 01/29/17] atorvastatin 20 mg tablet 20 mg PO QHS LOWERS CHOLESTEROL 09/01/14 [History Last Taken 01/28/17] cholecalciferol (vitamin D3) 50 mcg (2,000 unit) capsule (Vitamin D3) 50 mcg PO DAILY bone health 01/16/21 [History Last Taken Unknown] donepezil 10 mg tablet 10 mg PO QHS memory 01/16/21 [History Last Taken Unknown] levothyroxine 75 mcg tablet 75 mcg PO QHS thyroid 01/16/21 [History Last Taken Unknown] memantine 10 mg tablet 10 mg PO BID memory 01/16/21 [History Last Taken Unknown] paroxetine HCl 10 mg tablet 10 mg PO QHS depression 01/16/21 [History Last Taken Unknown] losartan 100 mg tablet 100 mg PO QHS blood pressur 02/16/23 [History Last Taken 02/15/23] benzocaine 6 mg-menthol 10 mg lozenges (Chloraseptic Sore Throat) 1 ysabel mucous membrane Q2H PRN PRN SORE THROAT #0 ea 02/20/23 [Rx Last Taken Unknown] Allergy/AdvReac Type Severity Reaction Status Date / Time No Known Allergies Allergy Verified 04/14/23 20:08 Family History Other CVA (cerebral vascular accident) Cancer Surgical History Hx of hysterectomy Social History household members: family and children number of children: 3 Smoking Status: Never smoker alcohol intake: never ROS ROS Narrative Review of systems: Constitutional: Patient denies fever or chills. Eyes: Patient denies visual changes or discharge from eyes. ENT: Patient denies runny nose, sore throat or ear pain. CV: Patient denies chest pain or palpitations. Resp: Patient admits to SOB at rest. GI: Patient denies nausea, vomiting, abdominal pain or constipation. : Patient denies dysuria or hematuria. MSK: Patient denies arthralgias and myalgias. Skin: Patient denies rash or jaundice. Neuro: Patient denies headache or focal neurologic deficits but she is notably lethargic. Psych: Patient denies complaints related to uncontrolled depression or anxiety. Endo: Patient denies polyuria, polydipsia or polyphagia. Hematology: Patient denies easy bleeding or easy bruisability. Allergic: Patient denies lip swelling, tongue swelling or urticaria. 14 point ROS otherwise negative except for positives noted above. Vital Signs Vital Signs Vital Signs: 04/14/23 20:05 04/14/23 20:10 04/14/23 20:44 Temperature 97.1 F L Temperature Source Temporal Pulse Rate 88 Respiratory Rate 16 Respiratory Effort Normal Non-Labored Respiratory Pattern Normal Blood Pressure 162/101 H Blood Pressure Mean 121 Pulse Ox 84 94 Oxygen Delivery Method Room Air Nasal Cannula Nasal Cannula Oxygen Flow Rate (L/min) 4 6 04/14/23 20:54 04/14/23 21:00 04/14/23 21:30 Temperature Temperature Source Pulse Rate 83 82 Respiratory Rate 23 H 22 H Respiratory Effort Respiratory Pattern Blood Pressure 173/100 H 188/114 H Blood Pressure Mean 120 135 Pulse Ox 99 99 Oxygen Delivery Method Nasal Cannula Oxygen Flow Rate (L/min) 6 Weight Weight: 171 lb 11.841 oz Body Mass Index (BMI) 29.5 Physical Exam Const alert and no apparent distress Constitutional Narrative: Patient is alert but confused. General Appearance: cooperative HEENT normocephalic, head/scalp atraumatic, hearing grossly normal bilaterally and moist oral mucous membranes Eyes PERRL and EOMs intact bilaterally Neck no lymphadenopathy and supple Resp normal respiratory effort, no retractions, no use of accessory muscles and clear to auscultation bilaterally Cardio regular rate and regular rhythm GI normal to inspection, nondistended, normoactive bowel sounds, soft to palpation, non-tender and non-distended Extremity normal to inspection and full ROM Skin Skin Narrative: Patient has no evidence of rash. Neuro CN's II-XII intact bilaterally, moves all extremities and no focal motor deficits Neuro Narrative: Patient is notably lethargic. Sensorium / Orientation: awake, alert, oriented to person and oriented to place Speech: speech normal Motor Exam: strength 5/5 throughout Psych affect normal Results Medical Records Data Attestation: I reviewed the patient's medical records Lab / Micro Data Attestation: I reviewed the patient's lab results. 04/15/23 05:28 04/14/23 20:20 Labs: Laboratory Results - last 24 hr 04/14/23 20:20: WBC 11.8 H, RBC 3.88 L, Hgb 13.8, Hct 44.0, MCV 113.4 H, MCH 35. 6 H, MCHC 31.4 L, RDW Std Deviation 52.7 H, RDW Coeff of Bhupinder 12.5, Plt Count 149 L, MPV 9.8, Immature Gran % (Auto) 1.900 H, Neut % (Auto) 85.5 H, Lymph % (Auto) 7.7 L, Meigs % (Auto) 3.7, Eos % (Auto) 0.9, Baso % (Auto) 0.3, Absolute Neuts (auto) 10.1 H, Absolute Lymphs (auto) 0.90, Nucleated RBC % 0, Sodium 145, P otassium 3.1 L, Chloride 111 H, Carbon Dioxide 29.0, Anion Gap 5, BUN 21 H, Creatinine 1.18 H, Estim Creat Clear Calc 35.21, Est GFR (MDRD) Af Amer 56 L, Est GFR (MDRD) Non-Af 46 L, BUN/Creatinine Ratio 17.8, Glucose 160 H, Calcium 9.1, Troponin I High Sens 154 H* Micro: Microbiology 04/14/23 21:10 Mucosa - Nose SARS-CoV-2, Influenza & RSV (PCR) - Final Rhythm Strip Rhythm Strip: Sinus Rhythm Rate: 86 Ectopy: None Imaging Radiology Impression Chest X-Ray 04/14/23 20:48 IMPRESSION: Right lower lung infiltrate or edema. Electronically Signed: Sylvester Low MD at 21:46 EST Reading Location ID and State: [address] [place] [address] , Service support , [facility] Imaging Services [address] [place] [address] CTA Chest W/WO Contrast MR#: [id number] Acct: [id number] Name: DONALD MONTANA Rep #: [id number] : 1940 F 83 From: Sylvester Low MD PCP: Dr. Kwan Murphy MD Status: ADM IN Study: CTA Chest W/WO Contrast Date of Exam: 04/14/23 Exam# [id number] Ordering Dr: Antony Greer MD ADDENDUM by Dr. Sylvester Low MD on 04/14/23 at 5168 STUDY: CTA CHEST REASON FOR EXAM: Female, 83 years old. Hypoxia. Pneumonia vs PE vs other RADIATION DOSAGE (If Supplied By Facility): CTDIvol = ( 13.08 ) mGy, DLP = ( 473.93 ) mGycm TECHNIQUE: The examination was performed with the intravenous administration of 100mL Isovue-370. Post-processing of the angiographic images was performed, with multiplanar reformation and 3D reconstruction. Individualized dose optimization techniques were used for this CT. COMPARISON: February 17, 2023 FINDINGS: Normal enhancement of the main pulmonary artery and right and left pulmonary arteries. There is filling defect involving fifth order branch of right lower lung pulmonary artery consistent with pulmonary embolism. There is atherosclerotic calcification of the aortic arch with tortuosity. There is no demonstrated aortic dissection. There are calcifications of the coronary arteries. Normal mediastinum. Normal hilar regions. Normal visualized trachea and bronchi. The lungs are well expanded. There is mild patchy right upper lobe consolidation. There are mild interstitial increased opacities of the lungs. There are small bilateral pleural effusions. Normal chest wall structures. There are degenerative changes of thoracic spine. Normal visualized upper abdomen. 04/14/232326 Date cc: Dr. Antony Greer MD; Dr. Kwan Murphy MD ~* Signed ADDENDUM by Dr. Sylvester Low MD on 04/14/[address]/CTA Chest W/WO Contrast IMPRESSION: Abnormal CTA chest examination, with peripheral right pulmonary embolism. Small pleural effusions. Small patchy right upper lung infiltrate. N.B. : Caterina Sanchez RN, confirmed on 04/14/2023 23:29:19 (ET) that the healthcare facility has received the radiology report. Electronically Signed: Sylvester Low MD at 23:27 EST , 04/14/232335 Date cc: Dr. Antony Greer MD; Dr. Kwan Murphy MD ~* Signed STUDY: CTA CHEST REASON FOR EXAM: Female, 83 years old. Hypoxia. Pneumonia vs PE vs other RADIATION DOSAGE (If Supplied By Facility): CTDIvol = ( 13.08 ) mGy, DLP = ( 473.93 ) mGycm TECHNIQUE: The examination was performed with the intravenous administration of 100mL [id number]-370. Post-processing of the angiographic images was performed, with multiplanar reformation and 3D reconstruction. Individualized dose optimization techniques were used for this CT. COMPARISON: February 17, 2023 FINDINGS: Normal enhancement of the main pulmonary artery and right and left pulmonary arteries. There is filling defect involving fifth order branch of right lower lung pulmonary artery consistent with pulmonary embolism. There is atherosclerotic calcification of the aortic arch with tortuosity. There is no demonstrated aortic dissection. There are calcifications of the coronary arteries. Normal mediastinum. Normal hilar regions. Normal visualized trachea and bronchi. The lungs are well expanded. There is mild patchy right upper lobe consolidation. There are mild interstitial increased opacities of the lungs. There are small bilateral pleural effusions. Normal chest wall structures. There are degenerative changes of thoracic spine. Normal visualized upper abdomen. CT/CTA Chest W/WO Contrast IMPRESSION: Abnormal CTA chest examination, with peripheral right pulmonary embolism. Small pleural effusions. Small patchy right upper lung infiltrate. Electronically Signed: Sylvester Low MD at 23:27 EST , CC: Dr. Antony Greer MD; Dr. Kwan Murphy MD ~ [employer] Representative: Signed Assessment & Plan Assessment/Plan (1) Pneumonia: QUALIFIERS: Laterality: right Lung location: upper lobe of lung Pneumonia type: due to unspecified organism Qualified Code(s): J18.9 - Pneumo kate, unspecified organism (2) Pulmonary emboli: QUALIFIERS: Pulmonary embolism type: single subsegmental (without acute cor pulmonale) Qualified Code(s): I26.93 - Single subsegmental pulmonary embolism without acute cor pulmonale (3) Elevated troponin: (4) Hypoxia: (5) Hypokalemia: (6) Fall: QUALIFIERS: Encounter type: initial encounter Qualified Code(s): W19.XXXA - Unspecified fall, initial encounter PLAN: Plan 1. RUL infiltrate on CXR suspicious for Pneumonia - Admit to PCU. Await results of CT chest ordered in the ER. Start Zosyn IV plus IV scheduled Mucinex. Give Tylenol prn pain or fever. 2. CT evidence of peripheral Right PE complicating #1 - Continue full-dose Lovenox used to treat #4. Check LE dopplers to evaluate for potential residual clot burden with d-dimer > 20. 3. Elevated initial troponin of 154 pg/mL present on admission rising to 1,474 pg/mL now worrisome for possible NSTEMI likely arising from #1 & #2 - Continue BASA and statin plus start Plavix and initiate treatment with full-dose Lovenox. Serialize troponins. Check echocardiogram to evaluate LVEF. Finally, we will obtain cardiology consultation on-rounds in the AM for further recommendations regarding potential LHC with help appreciated in advance. 4. Uncontrolled Hypertension of 211/113 mm Hg present on admission compounding #1 - #3 - Continue home regimen plus give prn IV Hydralazine for systolic blood pressure > 160 mm Hg. 5. Hypokalemia of 3.1 mmol/L present on admission - Give supplemental KCl and then recheck BMP in the AM to ensure improvement. 6. Generalized Weakness with Ambulatory Dysfunction culminating in Fall at Home due to #1 - #5 - PT/OT and case management to consult and treat on-rounds in the AM with help appreciated in advance. 7. Acute Delirium in the setting of Chronic Dementia attributable to #1 - #6 - Continue supportive care and monitor for improvement 8. Depression with Anxiety - Resume home regimen as previous. 9. History of admission here in late February 2023 for COVID-19 with patient then sent to [facility] for rehabilitation until she could return home - Noted. 10. Hyperlipidemia - Resume statin and check Lipid Profile in light of #3. 11. Hypothyroidism - Continue Synthroid and check TSH. 12. Overweight; with BMI of 29.5 this admission - Weight loss will be recommended. 13. OA - Stable. Give Tylenol prn. 14. DVT prophylaxis - Give full-dose Lovenox in lieu of #2 & #3. Total time: Approximately 55 minutes. Charges/Coding Visit Charges Inpatient E&M: 51172 Init Hosp L2
[2023-04-14 22:54] LABS: D-Dimer Quantitative (DVT/PE) > 20.00 FEU/ug/m (0.27-0.49)
--- NOTE | 2023-04-14 23:21 | ECHOD_ITS ---
Reason For Study: s/p LA Procedure This was a 2D Doppler, Color Flow transthoracic echocardiogram. Exam performed portable in patient room. Left Ventricle Normal LV size. The estimated ejection fraction is 60 %. No evidence for diastolic dysfunction. No regional wall motion abnormalities noted. Right Ventricle Normal RV size. Normal systolic function. Atria The left and right atria are normal. No doppler evidence for ASD. Mitral Valve There is no mitral valve stenosis. No mitral valve insufficiency. Tricuspid Valve There is no tricuspid stenosis. Trivial tricuspid valve insufficiency. Pulmonary artery systolic pressure is 25 mmHg. Aortic Valve Aortic sclerosis, no stenosis. There is no aortic stenosis. No aortic valve insufficiency. Pulmonic Valve There is no pulmonic valvular stenosis. No pulmonic valve insufficiency. Great Vessels Normal aortic root. Pericardium/Pleural No pericardial effusion. MMode/2D Measurements & Calculations LVIDd: 4.3 cm IVSd: 1.2 cm Ao root diam: 2.4 cm LVIDs: 2.8 cm LVPWd: 1.1 cm RVDd: 3.1 cm FS: 35.7 % LAV(MOD-bp): 16.4 ml LVAd ap4: 15.2 cm2 SV(MOD-sp4): 15.6 ml LAV(MOD-bp) Indexed: 9.1 ml/m2 LVLd ap4: 6.7 cm LAV(MOD-sp2): 14.5 ml EDV(MOD-sp4): 27.5 ml LAV(MOD-sp4): 16.3 ml EDV(sp4-el): 29.1 ml LVAs ap4: 8.9 cm2 LVLs ap4: 5.6 cm ESV(MOD-sp4): 12.0 ml ESV(sp4-el): 12.0 ml EF(MOD-sp4): 56.5 % EF(sp4-el): 58.9 % SV(sp4-el): 17.1 ml LA A4 area: 9.9 cm2 LA dimension(2D): 2.8 cm RA A4 area: 7.2 cm2 TAPSE: 1.7 cm Time Measurements MV dec time: 0.32 sec Doppler Measurements & Calculations MV E max jw: 67.7 cm/sec Lat Peak E' Jw: 7.1 cm/sec Med Peak E' Jw: 5.5 cm/sec MV A max jw: 107.3 cm/sec E/E' lat: 9.6 E/E' med: 12.4 MV E/A: 0.63 Ao V2 max: 139.4 cm/sec LV V1 max: 85.0 cm/sec MV dec slope: 213.5 cm/sec2 Ao max P.8 mmHg LV V1 max P.9 mmHg Ao V2 mean: 103.8 cm/sec Ao mean P.7 mmHg Ao V2 VTI: 25.7 cm PA V2 max: 78.0 cm/sec TR max jw: 219.0 cm/sec TR max P.2 mmHg ECHO/Echo Complete Interpretation Summary The estimated ejection fraction is 60 %. No evidence for diastolic dysfunction. Aortic sclerosis, no stenosis. Ordering Physician: Feliberto Villalba Referring Physician: Kwan Murphy Chi Performed By: Sushila Horn RDCS, RVT
[2023-04-15] VITALS (7 sets, daily range): BP systolic 135–170; BP diastolic 74–105; PULSE 81–89; RESP 16–20; TEMP 36.5–36.9; O2SAT 95–98; BMI 27.9
[2023-04-15] MEDS: Potassium Chloride Oral Tablet 20 MEQ 60 MEQ PO (00:04)
[2023-04-15] MEDS: KCL 20MEQ in 0.9% NS 20 MEQ/1,000 ML IV.SOLN. 70 MEQ IV ×2 (00:08→15:44)
[2023-04-15] MEDS: Enoxaparin 80 MG/0.8 ML Syringe SC (00:16)
[2023-04-15] MEDS: Doxycycline 100 MG in Dextrose 5%-Water (250mL Bag) 250 ML 250 MG IV (00:22)
--- OUTSIDE RECORDS SUMMARY | 2023-04-15 00:32 | XMS RPT_ITS | CCD ---
Author Name Unknown Address [address] [place] [address] Organization [facility] Results Test Name Value Interpretation [...] BE BASED ON THE PRIMARY CLINICAL RECORDS. [employer] provides no warranty or guarantee of the accuracy or completeness of information in this document.
--- OUTSIDE RECORDS SUMMARY | 2023-04-15 00:33 | XMS RPT_ITS | CCD ---
Author Name Unknown Address [address] [place] [address] Organization [facility] Results Test Name Value Interpretation [...] BE BASED ON THE PRIMARY CLINICAL RECORDS. [employer] provides no warranty or guarantee of the accuracy or completeness of information in this document.
--- NOTE | 2023-04-15 00:52 | VDLE_ITS ---
Reason For Study: Elevated D-dimer RIGHT LEFT GSV is normal. GSV is normal. CFV is compressible, spontaneous, phasic, CFV is compressible, spontaneous, phasic, competent and demonstrates normal competent, and demonstrates normal augmentation. augmentation. FV is compressible, spontaneous, phasic, FV is compressible, spontaneous, phasic, competent and demonstrates normal competent and demonstrates normal augmentation. augmentation. POP V is compressible, spontaneous, phasic, POP V is compressible, spontaneous, phasic, competent and demonstrates normal competent and demonstrates normal augmentation. augmentation. T/P Trunk is compressible. T/P Trunk is compressible. PTV is compressible. PTV is compressible. RT PerV is compressible. LT PerV is compressible. Procedure This is a venous duplex using B-mode, color flow and spectral Doppler. Exam performed portable in patient room. A preliminary report was called and/or faxed to primer supervisor. VL/Venous Duplex US - Mihai Extrem Interpretation Summary Deep veins of the bilateral lower extremities are patent and compressible segme ntally. There is no evidence of bilateral lower extremity deep vein thrombosis. The bilateral great saphenous veins appear patent and compressible segmentally. Ordering Physician: Feliberto Villalba Referring Physician: Kwan Murphy Chi Performed By: Lynn Schroeder RVT
[2023-04-15] MEDS: Acetaminophen 325 MG Tablet 650 MG PO ×3 (00:53→20:38)
[2023-04-15] MEDS: Donepezil HCl 10 MG Tablet PO ×2 (01:11→21:18)
[2023-04-15] MEDS: Atorvastatin Calcium 20 MG Tablet PO ×2 (01:11→21:20)
[2023-04-15] MEDS: Memantine Hydrochloride 10 MG Tablet PO ×2 (01:11→21:20)
[2023-04-15] MEDS: Levothyroxine 75 MCG Tablet PO ×2 (01:11→21:21)
[2023-04-15] MEDS: PARoxetine 10 MG Tablet PO ×2 (01:11→21:37)
[2023-04-15] MEDS: Losartan Potassium 100 MG Tablet PO ×2 (01:11→21:19)
[2023-04-15 03:56] LABS: Troponin-I HS 1474 pg/mL (3.0-54.0)
[2023-04-15 05:37] LABS: Absolute Lymphocyte Count 0.87 X10^3/uL (0.83-4.51); Absolute Neutrophil Count 9.9 X10^3/uL (2.0-7.7); Basophil# 0.02 X10^3/uL; Basophil% 0.2 % (0-1); Eosinophil# 0.05 X10^3/uL; Eosinophils% 0.4 % (0-5); Hematocrit 37.7 % (37-47); Lymphocyte # 0.87 X10^3/ul (0.83-4.51); Lymphocyte % 7.7 % (19-41); Mean Corp Hgb Conc 31.8 g/dL (32-36); Mean Corpuscular Hgb 35.5 pg (27.0-32.0); Mean Corpuscular Volume 111.5 fL (81-99); Mean Platelet Vol. 9.2 fl (6.2-12.0); Monocyte# 0.34 X10^3/uL; NRBC Flagged by Analyzer 0 % (0-5); Neutrophil # 9.94 X10^3/uL (2.7-7.7); Neutrophil % 88.3 % (47-70); Platelet Count 111 K/mm3 (150-450); RBC Distribution Width CV 12.4 % (11.6-14.6); RBC Distribution Width SD 51.7 fl (35.1-43.9); Red Blood Count 3.38 M/mm3 (4.2-5.4); White Blood Count 11.3 K/mm3 (4.4-11.0)
--- NOTE | 2023-04-15 05:55 | EKG12_ITS ---
Test Reason : Blood Pressure : / mmHG Vent. Rate : 086 BPM Atrial Rate : 086 BPM P-R Int : 180 ms QRS Dur : 074 ms QT Int : 380 ms P-R-T Axes : 073 037 076 degrees QTc Int : 454 ms Normal sinus rhythm Nonspecific ST and T wave abnormality Abnormal ECG When compared with ECG of 14-APR-2023 20:45, MANUAL COMPARISON REQUIRED, DATA IS UNCONFIRMED Confirmed by ROLAND MARRERO, ELIANA ([id number]), editor & co founder KANDIS NARVAEZ ([id number]) on 04/20/2023 6:47:30 AM Referred By: Confirmed By:ELIZABETH WATKINS MD
[2023-04-15 06:23] LABS: ALB/GLOB Ratio 0.6 RATIO (0.9-2.4); AST(SGOT) 38 U/L (15-37); Alanine Aminotransfer ALT/SGPT 22 U/L (13-56); Albumin, Serum 2.3 g/dL (3.2-5.0); Alkaline Phosphatase 69 U/L (45-117); Anion Gap 6 (5-15); BUN 18 mg/dL (7-18); BUN/Creat Ratio 20.5 RATIO (10-20); Calcium,Total 8.2 mg/dL (8.5-10.1); Chloride 112 mmol/L (98-107); Cholesterol 199 mg/dL (200); Creatinine, Serum 0.88 mg/dL (0.55-1.02); EST Glomerular Filtration Rate 65 mL/min (>60); Est Glom Filt Rate - Afr Amer 79 mL/min (>60); Estimated Creatinine Clearance 47.58 ml/min; Globulin 3.6 g/dL (2.2-4.2); Glucose 122 mg/dL (74-106); High Density Lipoprotein 81 mg/dL; Magnesium 1.9 mg/dL (1.6-2.6); Potassium 3.4 mmol/L (3.5-5.1); Protein, Total 5.9 g/dL (6.4-8.2); Sodium Level 145 mmol/L (136-145); Thyroid Stim Hormone (TSH) 2.73 uIU/mL (0.358-3.74); Triglycerides 79 mg/dL; Very Low Density Lipoprotein 16 mg/dL (5-40)
[2023-04-15 06:36] LABS: Troponin-I HS 1734 pg/mL (3.0-54.0)
[2023-04-15] MEDS: Piperacil/Tazobactam 3.375 GM in 0.9% Normal Saline (50mL MB+) 50 ML IV (06:56)
[2023-04-15] MEDS: Clopidogrel Bisulfate 75 MG Tablet PO (08:30)
[2023-04-15] MEDS: Aspirin 81 MG TAB.CHEW PO (08:30)
[2023-04-15 08:53] LABS: Troponin-I HS 1421 pg/mL (3.0-54.0)
--- NOTE | 2023-04-15 11:45 | CASEMGMT ---
CINDY TYSON Assessment: RN CM to room for initial transition planning/care coordination assessment. Pt resting in bed. RN MARBELLA introduced self and role at [facility]. Dtr, Clemencia, and son, Bradley, @ bedside and pt agreeable to them being present during assessment. Pt does have hx of dementia. Questions answered by dtr and son. Care providers, pharmacy, and demographics verified. Discussed progress with therapy and possible SNF at discharge. PCP: Dr Murphy Specialists: Neurologist in [place] Preferred Pharmacy: [facility] Pres[facility] Benefit: yes Living Will/HPOA: Clemencia is not sure if pt has done a LW, but she thinks she has. Pt has POA. Clemencia and Bradley both state they think all 3 of pt's adult children are listed as POA and Clemencia states she thinks she is the primary POA. LNOK: Clemencia hagan. 2 sons: Iain (lives in [place], [place]) Living Arrangements: patient lives with daughter in a single story home. Pt needs assistance with bathing, dressing, and toileting. Dtr does med mgnt, appts, and home mgnt tasks. Dtr works full-time and they have private-duty/private-pay aides that come to stay w/pt when she is at work or when she goes away. Transportation: daughter DME: Patient has shower chair, grab bars, walker, rollator, wheelchair, transport chair, and medical alert button at home. SNF/HHC: Patient was discharged to [facility] in [place] on 02/20/23 from [facility] and was discharged home from there on either Mar 09 or . Pt then had [facility] for about 3 weeks and then was d/c'd from [facility]. Plan: Daughter and son both feel pt will need SNF @ discharge and would like [facility] TCU as 1st choice. They were made aware a SNF list can be provided to them so if TCU unable to accept they can review and give other preferences. Sushila CATALAN, made aware of above. Aida CADET RN, CM
--- NOTE | 2023-04-15 11:53 | CASEMGMT ---
Per RN CM patient's family would like patient to go to [facility] TCU. SW made a referral to TCU. Radha will review once therapy sees patient. Sushila SAWYER
--- NOTE | 2023-04-15 13:05 | EKG12_ITS ---
Test Reason : cp Blood Pressure : / mmHG Vent. Rate : 086 BPM Atrial Rate : 086 BPM P-R Int : 172 ms QRS Dur : 076 ms QT Int : 378 ms P-R-T Axes : 051 013 034 degrees QTc Int : 452 ms Sinus rhythm with occasional Premature ventricular complexes Nonspecific ST abnormality Abnormal ECG When compared with ECG of 15-APR-2023 04:59, MANUAL COMPARISON REQUIRED, DATA IS UNCONFIRMED Confirmed by ROLAND MARRERO, ELIANA ([id number]), supervising film or videotape editor KANDIS NARVAEZ ([id number]) on 04/20/2023 6:51:16 AM Referred By: Confirmed By:ELIZABETH WATKINS MD
--- NOTE | 2023-04-15 13:53 | PCM.PN.HOSP ---
Reason for Visit Reason for Visit: Fall/shortness of breath Subjective Subjective Mrs. Bolton is an 83-year-old white female presents emergency department [facility] on 04/14/2023 status post a fall and having shortness of breath. Patient was here in late February and was admitted for COVID at which time she was discharged to [facility] for rehabilitation until she could return home. She reported that her symptoms started approximately 6 hours prior to admission after her daughter went out to dinner. She left around 5 PM and then returned around 7 PM and found her mother on the floor in the bathroom. They activated EMS and they found her to be hypoxic with an oxygen saturations of 94% on room air and brought her to the emergency department. She denies any fever, chills, nausea, vomiting, chest pain, or palpitations. Vital signs on presentation showed temperature of 97.1, heart rate 88, respiratory rate 16, blood pressure was 162/101 with pulse ox of 84% on room air. She was placed on 4 L nasal cannula with improvement in her saturation 94%. CBC shows a mild leukocytosis with a white count of 11.8 and a left shift having an 85.5% neutrophilia. She had a markedly elevated D-dimer for which a CTA was performed. Chemistry panel showed hypokalemia potassium of 3.1, mild serum creatinine elevation at 1.18 with a baseline of 0.8-1.0. Initial troponin was 154 but this up trended to a peak of 1734. Lipid panel was performed and is overtly unremarkable with an LDL of 1002 and a total cholesterol of 199. Her HDL was 81. Chest x-ray showed a right lower lobe infiltrate. CT of the chest showed peripheral right pulmonary embolism, small pleural effusion and small patchy right upper lung infiltrate. Patient did have an echocardiogram today that showed an EF of 60% with no evidence of diastolic dysfunction and aortic sclerosis without stenosis. Pulmonary systolic pressure was 25 mmHg and her RV was unremarkable. Patient has had some intermittent chest pain but was given some Tylenol and is currently having no pain. She has had no fever, chills, productive cough or significant cough of any nature recently. In the onset was rather acute so I highly doubt she has a pneumonia. Her CAT scan look like she had groundglass appearance which is different from her previous CAT scan so I suspect heart failure may be the etiology and a BNP was ordered and was noted to be elevated at greater than 200. Objective Data Objective Data Vital Signs: Vital Signs Temp Pulse Resp BP Pulse Ox O2 Del Method O2 Flow Rate 97.7 F L 84 18 150/74 H 97 Nasal Cannula 2 04/15/23 08:25 04/15/23 08:25 04/15/23 08:25 04/15/23 08:25 04/15/23 08:25 04/15/23 09:16 04/15/23 09:16 Oxygen Flow Rate (L/min) 2 Oxygen Delivery Method Nasal Cannula Weight: 76.2 kg Body Mass Index (BMI) 27.9 Intake & Output: Intake and Output for Last 24 Hours 04/13/23 04/14/23 04/15/23 23:59 23:59 23:59 Intake Total 1000 / 1200 610 / 610 Output Total 350 / 350 Balance 1000 / 1050 260 / 260 Lab / Micro Data 04/15/23 05:28 04/15/23 05:28 Labs: Laboratory Results - last 24 hr 04/14/23 20:20: WBC 11.8 H, RBC 3.88 L, Hgb 13.8, Hct 44.0, MCV 113.4 H, MCH 35.6 H, MCHC 31.4 L, RDW Std Deviation 52.7 H, RDW Coeff of Bhupinder 12.5, Plt Count 149 L, MPV 9.8, Immature Gran % (Auto) 1.900 H, Neut % (Auto) 85.5 H, Lymph % (Auto) 7.7 L, [place] % (Auto) 3.7, Eos % (Auto) 0.9, Baso % (Auto) 0.3, Absolute Neuts (auto) 10.1 H, Absolute Lymphs (auto) 0.90, Nucleated RBC % 0, D-Dimer Quant (PE/DVT) > 20.00 H*, Sodium 145, Potassium 3.1 L, Chloride 111 H, Carbon Dioxide 29.0, Anion Gap 5, BUN 21 H, Creatinine 1.18 H, Estim Creat Clear Calc 35.21, Est GFR (MDRD) Af Amer 56 L, Est GFR (MDRD) Non-Af 46 L, BUN/Creatinine Ratio 17.8, Glucose 160 H, Calcium 9.1, Troponin I High Sens 154 H* 04/15/23 00:12: Troponin I High Sens 1474 H* 04/15/23 05:28: WBC 11.3 H, RBC 3.38 L, Hgb 12.0, Hct 37.7, MCV 111.5 H, MCH 35.5 H, MCHC 31.8 L, RDW Std Deviation 51.7 H, RDW Coeff of Bhupinder 12.4, Plt Count 111 L, MPV 9.2, Immature Gran % (Auto) 0.400, Neut % (Auto) 88.3 H, Lymph % (Auto) 7.7 L, [place] % (Auto) 3.0, Eos % (Auto) 0.4, Baso % (Auto) 0.2, Absolute Neuts (auto) 9.9 H, Absolute Lymphs (auto) 0.87, Nucleated RBC % 0, Sodium 145, Potassium 3.4 L, Chloride 112 H, Carbon Dioxide 27.0, Anion Gap 6, BUN 18, Creatinine 0.88, Estim Creat Clear Calc 47.58, Est GFR (MDRD) Af Amer 79, Est GFR (MDRD) Non-Af 65, BUN/Creatinine Ratio 20.5 H, Glucose 122 H, Calcium 8.2 L, Phosphorus 3.0, Magnesium 1.9, Total Bilirubin 0.50, AST 38 H, ALT 22, Alkaline Phosphatase 69, Troponin I High Sens 1734 H*, Total Protein 5.9 L, Albumin 2.3 L, Globulin 3.6, Albumin/Globulin Ratio 0.6 L, Triglycerides 79, Cholesterol 199, LDL Cholesterol 102, VLDL Cholesterol 16, HDL Cholesterol 81, TSH 2.73 04/15/23 08:07: Troponin I High Sens 1421 H* Micro: Microbiology 04/14/23 21:10 Mucosa - Nose SARS-CoV-2, Influenza & RSV (PCR) - Final Radiography Diagnostic Testing: Radiology Impression Chest X-Ray 04/14/23 20:48 IMPRESSION: Right lower lung infiltrate or edema. Electronically Signed: Sylvester Low MD at 21:46 EST , Chest CTA 04/14/23 22:20 IMPRESSION: Abnormal CTA chest examination, with peripheral right pulmonary embolism. Small pleural effusions. Small patchy right upper lung infiltrate. Electronically Signed: Sylvester Low MD at 23:27 EST , ADDENDUM: 04/14/23 2336 IMPRESSION: Abnormal CTA chest examination, with peripheral right pulmonary embolism. Small pleural effusions. Small patchy right upper lung infiltrate. N.B. : Caterina Sanchez RN, confirmed on 04/14/2023 23:29:19 (ET) that the healthcare facility has received the radiology report. Electronically Signed: Sylvester Low MD at 23:27 EST , Echocardiogram 04/14/23 23:21 Interpretation Summary The estimated ejection fraction is 60 %. No evidence for diastolic dysfunction. Aortic sclerosis, no stenosis. Ordering Physician: Feliberto Villalba Referring Physician: Kwan Murphy Chi Performed By: Sushila Horn, WILTON, RVT Rhythm Strip Rhythm Strip: Sinus Rhythm Rate: 86 Ectopy: None Physical Exam Const alert, no apparent distress and well nourished Constitutional Narrative: Debilitated, elderly, white female, lying in bed sleeping, son at bedside, currently appears comfortable nontoxic, did awaken during my exam and was appropriately interactive, appears chronically ill HEENT head/scalp atraumatic HEENT Narrative: Mucous membranes are slightly dry, Mallampati is 2-3, no thrush Head and Scalp: normocephalic Resp normal respiratory effort, no retractions, no use of accessory muscles and No clear to auscultation bilaterally Resp Narrative: Crackles noted posteriorly bilaterally, no current signs of respiratory distress Auscultation: crackles; Negative for rhonchi or wheezes Cardio regular rate, regular rhythm, S1 normal heart sound, S2 normal heart sound, no murmurs, no rub, no gallops and no clicks GI normal to inspection, nondistended, normoactive bowel sounds, soft to palpation and non-tender Extremity no clubbing, cyanosis or edema Extremity Narrative: Pedal pulses are 2+ Neuro oriented x3, moves all extremities and no focal motor deficits Neuro Narrative: Significant generalized weakness noted with proximal musculature weaker than distal Psych Psych Narrative: Patient appears very fatigued however affect is stable and mood is unremarkable, very pleasant upon interaction Assessment & Plan Assessment/Plan (1) Hypokalemia: (2) Pulmonary emboli: QUALIFIERS: Pulmonary embolism type: single subsegmental (without acute cor pulmonale) Qualified Code(s): I26.93 - Single subsegmental pulmonary embolism without acute cor pulmonale (3) Pleural effusion: (4) Acute heart failure with preserved ejection fraction (HFpEF): (5) Leukocytosis: (6) Thrombocytopenia: (7) Elevated troponin: (8) Fall: QUALIFIERS: Encounter type: initial encounter Qualified Code(s): W19.XXXA - Unspecified fall, initial encounter (9) Hypoxia: PLAN: Plan Acute hypoxia secondary to acute pulmonary embolism and acute decompensated heart failure with preserved ejection fraction -Highly doubt pneumonia as patient does not have fever, chills, sputum production or significant cough and onset was acute -CT of the chest was reviewed and compared to previous and patchy ground glass opacities were noted throughout the lung solorio bilaterally that were new when compared to her previous CT in February -BNP was obtained and found to be markedly elevated at 224 -Lasix 40 mg IV push x 1 was ordered and then will be given twice daily -Will monitor renal function closely -Patient is currently on 2 L of nasal cannula with oxygen saturations at 96% -Wean oxygen as able -Patient is not oxygen dependent at baseline -Echocardiogram was performed due to troponin elevation and showed an EF of 60% with no diastolic dysfunction -I do suspect the acute heart failure may be related to acute blood pressure elevations along with PE despite no strain being noted on her echo or CT -Discontinue Lovenox -Start Eliquis 10 mg p.o. twice daily for 7 days then transition to 5 mg daily -PE is provoked with recent COVID infection and debility and therefore would treat for 3 to 6 months Thrombocytopenia -This was new as of February -Suspect may be related to her acute COVID infection -Will check coags with previous coags from February being normal -If remains problematic check KIMMY smear -Repeat CBC in a.m. Hypokalemia -Improved but still slightly low at 3.4 -40 mEq p.o. potassium given -Repeat in a.m. check a.m. magnesium level Troponin elevation -Echo with normal EF and no wall motion abnormality -Per cardiology feels that this is likely a type II NSTEMI related to her hypoxia -Sat was 84% on presentation -No cardiac workup further required at this time but will refer to outpatient to consider for stress test after discharge -Coreg 12.5 mg was initiated Mild leukocytosis -Suspect reactive -Trending down -Stop antibiotics as I doubt that this is related to infection Uncontrolled hypertension -Blood pressure is markedly elevated -Continue home losartan -Coreg 12.5 mg p.o. twice daily was added may need to uptitrate or add another medication depending on ongoing blood pressure monitoring -Continue as needed hydralazine for systolic pressure greater than 160 and continue to monitor Fall/generalized weakness -PT/OT following -Plan is for TCU at discharge -Case management/social work is following Hyperlipidemia -Continue home statin Hypothyroidism -Continue home Synthroid OA -Continue home as needed Tylenol Dementia -Continue home donepezil -Continue home memantine Depression -Continue home paroxetine DVT prophylaxis -Lovenox discontinued and transition to Eliquis full dose CODE STATUS -Full code is verified on admission Charges/Coding Visit Charges Inpatient E&M: 04129 Subs Hosp L2
[2023-04-15] MEDS: Nitroglycerin (INPATIENT USE) 0.4 MG TAB.SUBL 0.400000000000000022 MG SL (13:55)
--- NOTE | 2023-04-15 14:10 | CON.PCM.CA_ITS ---
Assessment & Plan Assessment/Plan (1) Elevated troponin: PLAN: Likely type II non-STEMI secondary to hypoxia. Does not need any further cardiac workup at this time. Reasonable to start the patient on Coreg 12.5 mg p.o. twice daily due to high blood pressure. Continue aspirin. We will sign off at this time. If we can be of any further assistance please let us know. HPI Consult Data Date of Consult: 04/15/23 HPI Narrative Reason for Consultation: Elevated troponin HPI Narrative: DONALD DANGELO, is a 83 F who presents after a fall. She denies any dizziness, chest pain or loss of consciousness. She is being treated for pneumonia. Troponin went up to around 1400. 2D echo revealed no significant regional wall motion abnormalities. EF is preserved. Patient was hypoxic upon presentation with O2 sat around 84%. [facility] Medical History Arthritis Dementia Difficulty balancing Fatigue Hay fever High cholesterol History of bronchitis Hypertension Incontinence Severe headache Home Medications aspirin 81 mg chewable tablet 81 mg PO DAILY@0800 HEART 09/01/14 [History Last Taken 01/29/17] atorvastatin 20 mg tablet 20 mg PO QHS LOWERS CHOLESTEROL 09/01/14 [History Last Taken 01/28/17] cholecalciferol (vitamin D3) 50 mcg (2,000 unit) capsule (Vitamin D3) 50 mcg PO DAILY bone health 01/16/21 [History Last Taken Unknown] donepezil 10 mg tablet 10 mg PO QHS memory 01/16/21 [History Last Taken Unknown] levothyroxine 75 mcg tablet 75 mcg PO QHS thyroid 01/16/21 [History Last Taken Unknown] memantine 10 mg tablet 10 mg PO BID memory 01/16/21 [History Last Taken Unknown] paroxetine HCl 10 mg tablet 10 mg PO QHS depression 01/16/21 [History Last Taken Unknown] losartan 100 mg tablet 100 mg PO QHS blood pressur 02/16/23 [History Last Taken 02/15/23] benzocaine 6 mg-menthol 10 mg lozenges (Chloraseptic Sore Throat) 1 ysabel mucous membrane Q2H PRN PRN SORE THROAT #0 ea 02/20/23 [Rx Last Taken Unknown] Allergy/AdvReac Type Severity Reaction Status Date / Time No Known Allergies Allergy Verified 04/14/23 20:08 Family History Other CVA (cerebral vascular accident) Cancer Surgical History Hx of hysterectomy Social History household members: family and children number of children: 3 Smoking Status: Never smoker alcohol intake: never Physical Exam Const alert and oriented x3 HEENT normocephalic Eyes no scleral icterus Resp clear to auscultation bilaterally Risk Stratification Risk Stratification Applicable: No Charges/Coding Visit Charges Inpatient E&M: 70356 Init Hosp L2 Objective Data Vital Signs: Vital Signs Temp Pulse Resp BP Pulse Ox O2 Del Method O2 Flow Rate 97.7 F L 84 18 170/105 H 97 Nasal Cannula 2 04/15/23 08:25 04/15/23 08:25 04/15/23 08:25 04/15/23 13:55 04/15/23 08:25 04/15/23 09:16 04/15/23 09:16 Oxygen Flow Rate (L/min) 2 Oxygen Delivery Method Nasal Cannula Weight: 167 lb 15.876 oz Body Mass Index (BMI) 27.9 Intake & Output: Intake and Output for Last 24 Hours 04/13/23 04/14/23 04/15/23 23:59 23:59 23:59 Intake Total 1000 / 1200 610 / 610 Output Total 350 / 350 Balance 1000 / 1050 260 / 260 Lab / Micro Data 04/15/23 05:28 04/15/23 05:28 Labs: Laboratory Results - last 24 hr 04/14/23 20:20: WBC 11.8 H, RBC 3.88 L, Hgb 13.8, Hct 44.0, MCV 113.4 H, MCH 35.6 H, MCHC 31.4 L, RDW Std Deviation 52.7 H, RDW Coeff of Bhupinder 12.5, Plt Count 149 L, MPV 9.8, Immature Gran % (Auto) 1.900 H, Neut % (Auto) 85.5 H, Lymph % (Auto) 7.7 L, [place]rio % (Auto) 3.7, Eos % (Auto) 0.9, Baso % (Auto) 0.3, Absolute Neuts (auto) 10.1 H, Absolute Lymphs (auto) 0.90, Nucleated RBC % 0, D-Dimer Quant (PE/DVT) > 20.00 H*, Sodium 145, Potassium 3.1 L, Chloride 111 H, Carbon Dioxide 29.0, Anion Gap 5, BUN 21 H, Creatinine 1.18 H, Estim Creat Clear Calc 35.21, Est GFR (MDRD) Af Amer 56 L, Est GFR (MDRD) Non-Af 46 L, BUN/Creatinine Ratio 17.8, Glucose 160 H, Calcium 9.1, Troponin I High Sens 154 H* 04/15/23 00:12: Troponin I High Sens 1474 H* 04/15/23 05:28: WBC 11.3 H, RBC 3.38 L, Hgb 12.0, Hct 37.7, MCV 111.5 H, MCH 35.5 H, MCHC 31.8 L, RDW Std Deviation 51.7 H, RDW Coeff of Bhupinder 12.4, Plt Count 111 L, MPV 9.2, Immature Gran % (Auto) 0.400, Neut % (Auto) 88.3 H, Lymph % (Auto) 7.7 L, Frio % (Auto) 3.0, Eos % (Auto) 0.4, Baso % (Auto) 0.2, Absolute Neuts (auto) 9.9 H, Absolute Lymphs (auto) 0.87, Nucleated RBC % 0, Sodium 145, Potassium 3.4 L, Chloride 112 H, Carbon Dioxide 27.0, Anion Gap 6, BUN 18, Creatinine 0.88, Estim Creat Clear Calc 47.58, Est GFR (MDRD) Af Amer 79, Est GFR (MDRD) Non-Af 65, BUN/Creatinine Ratio 20.5 H, Glucose 122 H, Calcium 8.2 L, Phosphorus 3.0, Magnesium 1.9, Total Bilirubin 0.50, AST 38 H, ALT 22, Alkaline Phosphatase 69, Troponin I High Sens 1734 H*, Total Protein 5.9 L, Albumin 2.3 L , Globulin 3.6, Albumin/Globulin Ratio 0.6 L, Triglycerides 79, Cholesterol 199, LDL Cholesterol 102, VLDL Cholesterol 16, HDL Cholesterol 81, TSH 2.73 04/15/23 08:07: Troponin I High Sens 1421 H* Micro: Microbiology 04/14/23 21:10 Mucosa - Nose SARS-CoV-2, Influenza & RSV (PCR) - Final Rhythm Strip Rhythm Strip: Sinus Rhythm Rate: 86 Ectopy: None Cardiology Labs/Tests 04/14/23 20:20: WBC 11.8 H, RBC 3.88 L, Hgb 13.8, Hct 44.0, MCV 113.4 H, MCH 35.6 H, MCHC 31.4 L, Plt Count 149 L, MPV 9.8, Immature Gran % (Auto) 1.900 H, Neut % (Auto) 85.5 H, Lymph % (Auto) 7.7 L, [place]rio % (Auto) 3.7, Eos % (Auto) 0.9, Baso % (Auto) 0.3, Absolute Neuts (auto) 10.1 H, Nucleated RBC % 0, D-Dimer Quant (PE/DVT) > 20.00 H*, Sodium 145, Potassium 3.1 L, Chloride 111 H, Carbon Dioxide 29.0, Anion Gap 5, BUN 21 H, Creatinine 1.18 H, Est GFR (MDRD) Af Amer 56 L, Est GFR (MDRD) Non-Af 46 L, BUN/Creatinine Ratio 17.8, Glucose 160 H, Calcium 9.1 04/15/23 05:28: WBC 11.3 H, RBC 3.38 L, Hgb 12.0, Hct 37.7, MCV 111.5 H, MCH 35.5 H, MCHC 31.8 L, Plt Count 111 L, MPV 9.2, Immature Gran % (Auto) 0.400, Neut % (Auto) 88.3 H, Lymph % (Auto) 7.7 L, Frio % (Auto) 3.0, Eos % (Auto) 0.4, Baso % (Auto) 0.2, Absolute Neuts (auto) 9.9 H, Nucleated RBC % 0, Sodium 145, Potassium 3.4 L, Chloride 112 H, Carbon Dioxide 27.0, Anion Gap 6, BUN 18, Creatinine 0.88, Est GFR (MDRD) Af Amer 79, Est GFR (MDRD) Non-Af 65, BUN/Creatinine Ratio 20.5 H, Glucose 122 H, Calcium 8.2 L, Phosphorus 3.0, Magnesium 1.9, Total Bilirubin 0.50, Triglycerides 79, Cholesterol 199, LDL Cholesterol 102, VLDL Cholesterol 16, HDL Cholesterol 81 Rhythm: EKG: ECHO: Stress Test: Cardiac Cath: PCI: CT Surgery: Holter monitor: EPS: PPM: CXR: Chest CT Scan: Radiography Diagnostic Testing: Radiology Impression Chest X-Ray 04/14/23 20:48 IMPRESSION: Right lower lung infiltrate or edema. Electronically Signed: Sylvester Low MD at 21:46 EST Reading Location ID and State: [address] [place] [address] , Service support , Chest CTA 04/14/23 22:20 IMPRESSION: Abnormal CTA chest examination, with peripheral right pulmonary embolism. Small pleural effusions. Small patchy right upper lung infiltrate. Electronically Signed: Sylvester Low MD at 23:27 EST Reading Location ID and State: [address] [place] [address] , Service support , ADDENDUM: 04/14/23 2336 IMPRESSION: Abnormal CTA chest examination, with peripheral right pulmonary embolism. Small pleural effusions. Small patchy right upper lung infiltrate. N.B. : Caterina Sanchez RN, confirmed on 04/14/2023 23:29:19 (ET) that the healthcare facility has received the radiology report. Electronically Signed: Sylvester Low MD at 23:27 EST Reading Location ID and State: [address] [place] [address] , Service support , Echocardiogram 04/14/23 23:21 Interpretation Summary The estimated ejection fraction is 60 %. No evidence for diastolic dysfunction. Aortic sclerosis, no stenosis. Ordering Physician: Feliberot Villalba Referring Physician: Kwan Murphy Chi Performed By: Sushila Horn, WILTON, RVT
[2023-04-15 14:32] LABS: BNP,B-Type NATRIURETIC PEPTIDE 224.2 pg/mL (0-100)
[2023-04-15] MEDS: Furosemide 40 MG/4 ML Vial IV ×2 (15:42→21:20)
[2023-04-15] MEDS: 0.9% Saline Lock 10 ML Syringe IV ×2 (15:44→21:27)
[2023-04-15] MEDS: Carvedilol 12.5 MG Tablet PO ×2 (18:07→21:18)
[2023-04-15] MEDS: Ascorbic Acid 500 MG Tablet 1000 MG PO (18:07)
[2023-04-15] MEDS: APIXABAN 5 MG TABLET 10 MG PO (21:19)
[2023-04-15] MEDS: guaiFENesin 1,200 MG Tablet 1200 MG PO (21:20)
[2023-04-16] VITALS (8 sets, daily range): BP systolic 129–162; BP diastolic 73–101; PULSE 67–89; RESP 18–24; TEMP 36.4–36.9; O2SAT 91–100; BMI 29.9
[2023-04-16] MEDS: KCL 20MEQ in 0.9% NS 20 MEQ/1,000 ML IV.SOLN. 70 MEQ IV ×2 (06:25→21:29)
[2023-04-16 07:05] LABS: Absolute Neutrophil Count 5.6 X10^3/uL (2.0-7.7); Basophil# 0.02 X10^3/uL; Basophil% 0.3 % (0-1); Eosinophil# 0.52 X10^3/uL; Eosinophils% 7.1 % (0-5); Hematocrit 37.3 % (37-47); Hemoglobin 11.8 g/dL (12.0-15.0); Mean Corp Hgb Conc 31.6 g/dL (32-36); Mean Corpuscular Hgb 36.2 pg (27.0-32.0); Mean Corpuscular Volume 114.4 fL (81-99); Mean Platelet Vol. 10.5 fl (6.2-12.0); Monocyte# 0.31 X10^3/uL; Monocyte% 4.2 % (0-10); NRBC Flagged by Analyzer 0 % (0-5); Neutrophil # 5.62 X10^3/uL (2.7-7.7); POSITIVE COUNT YES; Platelet Count 96 K/mm3 (150-450); RBC Distribution Width CV 12.5 % (11.6-14.6); RBC Distribution Width SD 53.2 fl (35.1-43.9); Red Blood Count 3.26 M/mm3 (4.2-5.4); White Blood Count 7.3 K/mm3 (4.4-11.0)
[2023-04-16 07:21] LABS: Differential Indicated SCAN CRITERIA MET
[2023-04-16 07:43] LABS: ALB/GLOB Ratio 0.6 RATIO (0.9-2.4); AST(SGOT) 25 U/L (15-37); Alanine Aminotransfer ALT/SGPT 16 U/L (13-56); Albumin, Serum 1.9 g/dL (3.2-5.0); Alkaline Phosphatase 64 U/L (45-117); Anion Gap 1 (5-15); BUN 15 mg/dL (7-18); Calcium,Total 8.2 mg/dL (8.5-10.1); Chloride 111 mmol/L (98-107); Creatinine, Serum 1.07 mg/dL (0.55-1.02); EST Glomerular Filtration Rate 52 mL/min (>60); Est Glom Filt Rate - Afr Amer 63 mL/min (>60); Estimated Creatinine Clearance 40.54 ml/min; Globulin 3.2 g/dL (2.2-4.2); Glucose 103 mg/dL (74-106); Magnesium 1.7 mg/dL (1.6-2.6); Phosphorus 2.9 mg/dL (2.5-4.9); Protein, Total 5.1 g/dL (6.4-8.2); Sodium Level 141 mmol/L (136-145)
[2023-04-16 07:51] LABS: International Normalized Ratio 1.5
[2023-04-16 09:26] LABS: Differential Comment SCANNED
[2023-04-16] MEDS: Ascorbic Acid 500 MG Tablet 1000 MG PO ×2 (09:26→16:01)
[2023-04-16] MEDS: Aspirin 81 MG TAB.CHEW PO (09:26)
[2023-04-16 09:27] LABS: Platelet Estimate SLT DEC (ADEQ)
[2023-04-16] MEDS: APIXABAN 5 MG TABLET 10 MG PO ×2 (09:27→21:35)
[2023-04-16] MEDS: Furosemide 40 MG Tablet PO (09:27)
[2023-04-16] MEDS: guaiFENesin 1,200 MG Tablet 1200 MG PO ×2 (09:27→21:36)
[2023-04-16] MEDS: Carvedilol 12.5 MG Tablet PO ×2 (09:27→21:35)
[2023-04-16] MEDS: Acetaminophen 325 MG Tablet 650 MG PO ×2 (09:28→19:47)
[2023-04-16] MEDS: Memantine Hydrochloride 10 MG Tablet PO ×2 (09:28→21:35)
[2023-04-16] MEDS: Zinc Sulfate 50 mg zinc (220 mg) ORAL capsule PO (09:28)
[2023-04-16] MEDS: Cholecalciferol (Vit D3) 125 MCG CAPSULE (5,000 UNITS) PO (09:28)
[2023-04-16] MEDS: Clopidogrel Bisulfate 75 MG Tablet PO (09:28)
--- NOTE | 2023-04-16 12:51 | CHAPLAIN ---
Type of Pastoral Visit _x__ Initial Visit ___ Follow-up Visit ___ On-call Visit ___ General Patient Visit ___ Spiritual Assessment ___ Family Conference ___ Bereavement ___ Rapid Response ___ Code Blue ___ Other (describe below) Pastoral Care Referral From _x__ Patient ___ Family ___ Nurse ___ Physician ___ Bobbin Marker ___ Shingle Sawyer ___ Other (describe below) Sacrament/Intervention _x__ Active listening ___ Anointing ___ Gnosticism ___ Bereavement ___ Communion ___ Rekha exploration ___ _x__ Life review _x__ Prayer ___ Reconciliation ___ Sacrament of Sick ___ Supportive presence ___ Wedding ___ Other (describe below) Pastoral Comments patient and her caregiver are in the room; pt is alert although at times just shuts her eyes and does not speak; pt shows humor with several comments; 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
--- NOTE | 2023-04-16 12:59 | EKG12_ITS ---
Test Reason : CHEST PAIN Blood Pressure : / mmHG Vent. Rate : 069 BPM Atrial Rate : 069 BPM P-R Int : 174 ms QRS Dur : 074 ms QT Int : 412 ms P-R-T Axes : 061 019 062 degrees QTc Int : 441 ms Poor data quality, interpretation may be adversely affected Sinus rhythm with occasional Premature ventricular complexes and Premature atrial complexes Low voltage QRS Borderline ECG No previous ECGs available Confirmed by ROLAND MARRERO, ELIANA ([id number]), legal editor HELIO CIFUENTES ([id number]) on 04/20/2023 2:01:33 PM Referred By: ELIDA Confirmed By:ELIZABETH WATKINS MD
[2023-04-16 15:10] LABS: Troponin-I HS 1109 pg/mL (3.0-54.0)
--- NOTE | 2023-04-16 15:47 | PN.HOSP_ITS ---
Reason for Visit Reason for Visit: Shortness of breath/fall Subjective Subjective Patient did not sleep well last night and was fairly somnolent at the time of my visit. States she did not fall asleep till 2 AM. Still remains subjectively short of breath and oxygen saturations are 92% on 1 L. Still complaining of intermittent chest pain but troponin is trending down. Did respond to Lasix but is still 2 L positive for hospital stay. Slight trend up in her creatinine so we will transition from IV to oral diuretics. If patient still having intermittent chest pain and shortness of breath will further discuss with cardiology if they would consider taking her to the [facility]. Objective Data Objective Data Vital Signs: Vital Signs Temp Pulse Resp BP Pulse Ox O2 Del Method O2 Flow Rate 98.0 F 82 22 H 162/94 H 94 Nasal Cannula 2 04/16/23 09:10 04/16/23 09:10 04/16/23 09:10 04/16/23 09:10 04/16/23 11:00 04/16/23 09:10 04/16/23 13:38 Oxygen Flow Rate (L/min) 2 Oxygen Delivery Method Nasal Cannula Weight: 81.5 kg Body Mass Index (BMI) 29.9 Intake & Output: Intake and Output for Last 24 Hours 04/14/23 04/15/23 04/16/23 23:59 23:59 23:59 Intake Total 1000 / 1200 2050 / 2050 1100 / 1100 Output Total 1300 / 1300 850 / 850 Balance 1000 / 1050 750 / 750 250 / 250 Lab / Micro Data 04/16/23 06:35 04/16/23 06:35 Labs: Laboratory Results - last 24 hr 04/16/23 06:35: WBC 7.3, RBC 3.26 L, Hgb 11.8 L, Hct 37.3, MCV 114.4 H, MCH 36.2 H, MCHC 31.6 L, RDW Std Deviation 53.2 H, RDW Coeff of Bhupinder 12.5, Plt Count 96 L, MPV 10.5, Immature Gran % (Auto) 0.400, Neut % (Auto) 77.0 H, Lymph % (Auto) 11.0 L, [place] % (Auto) 4.2, Eos % (Auto) 7.1 H, Baso % (Auto) 0.3, Absolute Neuts (auto) 5.6, Absolute Lymphs (auto) 0.80 L, Nucleated RBC % 0, Differential Comment SCANNED, Platelet Estimate SLT DEC, PT 18.0 H, INR 1.5, Sodium 141, Potassium 4.0, Chloride 111 H, Carbon Dioxide 29.0, Anion Gap 1 L, BUN 15, Creatinine 1.07 H, Estim Creat Clear Calc 40.54, Est GFR (MDRD) Af Amer 63, Est GFR (MDRD) Non-Af 52 L, BUN/Creatinine Ratio 14.0, Glucose 103, Calcium 8.2 L, Phosphorus 2.9, Magnesium 1.7, Total Bilirubin 0.50, AST 25, ALT 16, Alkaline Phosphatase 64, Total Protein 5.1 L, Albumin 1.9 L, Globulin 3.2, Albumin/Globulin Ratio 0.6 L, TSH 3.60 04/16/23 14:08: Troponin I High Sens 1109 H* Micro: Microbiology 04/14/23 21:10 Mucosa - Nose SARS-CoV-2, Influenza & RSV (PCR) - Final Radiography Diagnostic Testing: Radiology Impression Venous Doppler Study 04/15/23 00:52 Interpretation Summary Deep veins of the bilateral lower extremities are patent and compressible segmentally. There is no evidence of bilateral lower extremity deep vein thrombosis. The bilateral great saphenous veins appear patent and compressible segmentally. Ordering Physician: Feliberto Villalba Referring Physician: Kwan Murphy Chi Performed By: Lynn Schroeder RVJoseph Rhythm Strip Rhythm Strip: Sinus Rhythm Rate: 86 Ectopy: None Physical Exam Const no apparent distress and well nourished Constitutional Narrative: Debilitated, elderly, white female, lying in bed sleeping fairly soundly but will arouse slightly to have minimal conversation, appears chronically ill, family at bedside, nontoxic HEENT normocephalic, head/scalp atraumatic, hearing grossly normal bilaterally and moist oral mucous membranes HEENT Narrative: Mallampati 2-3, no thrush Resp normal respiratory effort, no retractions, no use of accessory muscles and No clear to auscultation bilaterally Resp Narrative: Crackles have improved and patient still appears to have some conversational dyspnea Auscultation: Negative for crackles, rhonchi or wheezes Cardio regular rate, regular rhythm, S1 normal heart sound, S2 normal heart sound, no murmurs, no rub, no gallops and no clicks GI normal to inspection, nondistended, normoactive bowel sounds, soft to palpation and non-tender Extremity normal to inspection, full ROM and no clubbing, cyanosis or edema Extremity Narrative: Pedal pulses are 2+ Neuro oriented x3, moves all extremities and no focal motor deficits Neuro Narrative: Significant generalized weakness noted with proximal musculature weaker than distal Sensorium / Orientation: awake, alert, oriented to person and oriented to place Psych affect normal Psych Narrative: Patient appears very fatigued however affect is stable and mood is unremarkable, very pleasant upon interaction Assessment & Plan Assessment/Plan (1) Hypokalemia: (2) Pulmonary emboli: QUALIFIERS: Pulmonary embolism type: single subsegmental (without acute cor pulmonale) Qualified Code(s): I26.93 - Single subsegmental pulmonary embolism without acute cor pulmonale (3) Pleural effusion: (4) Acute heart failure with preserved ejection fraction (HFpEF): (5) Leukocytosis: (6) Thrombocytopenia: (7) Elevated troponin: (8) Fall: QUALIFIERS: Encounter type: initial encounter Qualified Code(s): W19.XXXA - Unspecified fall, initial encounter (9) Hypoxia: PLAN: Plan Acute hypoxia secondary to acute pulmonary embolism and acute decompensated heart failure with preserved ejection fraction -Highly doubt pneumonia as patient does not have fever, chills, sputum productio n or significant cough and onset was acute -CT of the chest was reviewed and compared to previous and patchy ground glass opacities were noted throughout the lung solorio bilaterally that were new when compared to her previous CT in February -BNP was obtained and found to be markedly elevated at 224--> IV Lasix given -Slight increase in her creatinine so we will transition from IV to oral Lasix and continue diuresis -Recheck BNP in a.m. -Patient is currently on 2 L of nasal cannula with oxygen saturations at 96-99% -Wean oxygen as able--> down to 1 L but patient was 92% and complaining of [place] bjective shortness of breath -Patient is not oxygen dependent at baseline -Echocardiogram was performed due to troponin elevation and showed an EF of 60% with no diastolic dysfunction -I do suspect the acute heart failure may be related to acute blood pressure elevations along with PE despite no strain being noted on her echo or CT -Continue Eliquis 10 mg p.o. twice daily for 7 days then transition to 5 mg daily -PE is provoked with recent COVID infection and debility and therefore would treat for 3 to 6 months -If patient remains subjectively short of breath and having intermittent chest pain will discuss further with cardiology about possible cardiac catheterization and consider pulmonary medicine consult Thrombocytopenia -This was new as of February -Suspect may be related to her acute COVID infection -Coags abnormal however unfortunately were checked after she was given Eliquis so this it is to be anticipated -Check peripheral smear--> ordered and pending -Repeat CBC in a.m. Hypokalemia -Resolved Troponin elevation -Echo with normal EF and no wall motion abnormality -Per cardiology feels that this is likely a type II NSTEMI related to her hypoxia -Sat was 84% on presentation -No cardiac workup further required at this time but will refer to outpatient to consider for stress test after discharge -Continue Coreg 12.5 mg twice daily Mild leukocytosis -Suspect reactive -Now resolved -Trending down Uncontrolled hypertension -Blood pressure is markedly elevated -Continue home losartan -Continue Coreg 12.5 mg p.o. twice daily -Blood pressures seem to be somewhat labile so we will continue to monitor before uptitrating or adding any new medications -Continue as needed hydralazine for systolic pressure greater than 160 and continue to monitor Fall/generalized weakness -PT/OT following -Plan is for TCU at discharge -Case management/social work is following Hyperlipidemia -Continue home statin Hypothyroidism -Continue home Synthroid OA -Continue home as needed Tylenol Dementia -Continue home donepezil -Continue home memantine Depression -Continue home paroxetine DVT prophylaxis -Continue Eliquis CODE STATUS -Full code is verified on admission Charges/Coding Visit Charges Inpatient E&M: 03940 Subs Hosp L2
[2023-04-16] MEDS: Albuterol 2.5 MG/3 ML VIAL.NEB. INHALATION (16:35)
[2023-04-16] MEDS: Atorvastatin Calcium 20 MG Tablet PO (21:35)
[2023-04-16] MEDS: Losartan Potassium 100 MG Tablet PO (21:35)
[2023-04-16] MEDS: Levothyroxine 75 MCG Tablet PO (21:35)
[2023-04-16] MEDS: Donepezil HCl 10 MG Tablet PO (21:35)
[2023-04-16] MEDS: PARoxetine 10 MG Tablet PO (21:36)
[2023-04-17] VITALS (8 sets, daily range): BP systolic 104–147; BP diastolic 61–87; PULSE 65–73; RESP 16–20; TEMP 36.3–36.8; O2SAT 92–98; BMI 28.3
[2023-04-17] MEDS: Acetaminophen 325 MG Tablet 650 MG PO (02:24)
[2023-04-17 07:02] LABS: Absolute Lymphocyte Count 1.05 X10^3/uL (0.83-4.51); Absolute Neutrophil Count 4.4 X10^3/uL (2.0-7.7); Basophil# 0.03 X10^3/uL; Basophil% 0.5 % (0-1); Eosinophil# 0.66 X10^3/uL; Eosinophils% 10.2 % (0-5); Hematocrit 35.5 % (37-47); Hemoglobin 11.1 g/dL (12.0-15.0); Lymphocyte # 1.05 X10^3/ul (0.83-4.51); Lymphocyte % 16.2 % (19-41); Mean Corp Hgb Conc 31.3 g/dL (32-36); Mean Corpuscular Volume 115.3 fL (81-99); Mean Platelet Vol. 10.3 fl (6.2-12.0); Monocyte# 0.34 X10^3/uL; Monocyte% 5.2 % (0-10); NRBC Flagged by Analyzer 0 % (0-5); Neutrophil # 4.39 X10^3/uL (2.7-7.7); Neutrophil % 67.4 % (47-70); POSITIVE COUNT YES; Platelet Count 98 K/mm3 (150-450); RBC Distribution Width CV 12.6 % (11.6-14.6); RBC Distribution Width SD 53.8 fl (35.1-43.9); Red Blood Count 3.08 M/mm3 (4.2-5.4); White Blood Count 6.5 K/mm3 (4.4-11.0)
[2023-04-17 07:21] LABS: Differential Indicated SCAN CRITERIA MET
[2023-04-17 07:31] LABS: Anion Gap 1 (5-15); BUN 17 mg/dL (7-18); BUN/Creat Ratio 18.5 RATIO (10-20); Calcium,Total 8.2 mg/dL (8.5-10.1); Chloride 113 mmol/L (98-107); Creatinine, Serum 0.92 mg/dL (0.55-1.02); EST Glomerular Filtration Rate 62 mL/min (>60); Est Glom Filt Rate - Afr Amer 75 mL/min (>60); Estimated Creatinine Clearance 45.93 ml/min; Glucose 101 mg/dL (74-106); Magnesium 1.8 mg/dL (1.6-2.6); Potassium 4.3 mmol/L (3.5-5.1); Sodium Level 141 mmol/L (136-145)
[2023-04-17 09:14] LABS: BNP,B-Type NATRIURETIC PEPTIDE 278.2 pg/mL (0-100)
[2023-04-17] MEDS: Ascorbic Acid 500 MG Tablet 1000 MG PO ×2 (09:23→16:27)
[2023-04-17] MEDS: Aspirin 81 MG TAB.CHEW PO (09:23)
[2023-04-17] MEDS: guaiFENesin 1,200 MG Tablet 1200 MG PO ×2 (09:24→22:08)
[2023-04-17] MEDS: APIXABAN 5 MG TABLET 10 MG PO ×2 (09:24→22:08)
[2023-04-17] MEDS: Furosemide 40 MG Tablet PO (09:24)
[2023-04-17] MEDS: Carvedilol 12.5 MG Tablet PO ×2 (09:24→22:08)
[2023-04-17] MEDS: Clopidogrel Bisulfate 75 MG Tablet PO (09:25)
[2023-04-17] MEDS: Memantine Hydrochloride 10 MG Tablet PO ×2 (09:25→22:08)
[2023-04-17] MEDS: Cholecalciferol (Vit D3) 125 MCG CAPSULE (5,000 UNITS) PO (09:25)
[2023-04-17] MEDS: Zinc Sulfate 50 mg zinc (220 mg) ORAL capsule PO (09:25)
--- NOTE | 2023-04-17 11:59 | CASEMGMT ---
Social Work SW spoke w/physician in regard to pt. Pt will be here through the weekend, they did speak about anticipated plan for pt, SNF vs possible hospice. Daughter plans to speak w/pt's sons about this. SW spoke w/daughter Clemencia in room in regard to plan. SW let her know that TCU had accepted pt however pt is not participating fully in PT. SW explained to daughter that physician did say pt would be here through the weekend, so will need to see how pt does on the weekend. Daughter states understanding. She plans to speak w/her brothers about pt's code status, SW did review the types of code status w/daughter. Daughter states she thought pt had signed a DNR in the past. SW look through the chart, there is no LW, no DNR, just a durable POA form. SW let the daughter Clemencia know this, did give her a copy of the old durable POA form(from 2009), daughter thinks there may be an updated POA form at home, SW asked her to bring in the updated document, as the one we have on file does not appear to cover medical. Daughter states that pt has 3 children, she and her two brothers, and they are making decisions together. Daughter is not certain if the updated POA form at home covers medical either. SW will continue to follow, available to answer any additional questions. SW will follow up Thursday to see if TCU is still appropriate as the discharge plan on Thursday. HARLEY Hernandez
[2023-04-17] MEDS: KCL 20MEQ in 0.9% NS 20 MEQ/1,000 ML IV.SOLN. 70 MEQ IV ×2 (12:18→22:12)
[2023-04-17] MEDS: Acetaminophen 500 MG Tablet 1000 MG PO ×2 (13:36→22:08)
[2023-04-17] MEDS: 0.9% Saline Lock 10 ML Syringe IV (13:36)
[2023-04-17] MEDS: Bumetanide 1 MG/4 ML Vial 2 MG IV ×2 (13:36→17:52)
[2023-04-17] MEDS: Lidocaine 5% Patch 1 PATCH TOPICAL (13:37)
--- NOTE | 2023-04-17 13:44 | PN.HOSP_ITS ---
Reason for Visit Reason for Visit: Shortness of breath/fall Subjective Subjective No significant issues overnight. I did test her on room air and her oxygen satu rations at rest while she was sleeping on room air were 87%. Her daughter was at the bedside and we had an extensive discussion today with regards to the current plan how she has been doing at home and overall prognosis. Patient is complaining of some left-sided neck pain that radiates into her left chest intermittently and it is reproducible on palpation. I highly suspect this is musculoskeletal in nature. Family is asking if we can add any medication for this as scheduled Tylenol as I would like to avoid sedating medications if at all possible. She is not doing well at all with physical therapy so I think TCU discharge at this point would be premature and unless she starts to participate more Objective Data Objective Data Vital Signs: Vital Signs Temp Pulse Resp BP Pulse Ox O2 Del Method O2 Flow Rate 97.5 F L 72 20 H 104/61 92 Room Air 1 04/17/23 13:28 04/17/23 13:28 04/17/23 13:28 04/17/23 13:28 04/17/23 13:28 04/17/23 13:28 04/17/23 09:17 Oxygen Flow Rate (L/min) 1 Oxygen Delivery Method Room Air Weight: 77.2 kg Body Mass Index (BMI) 28.3 Intake & Output: Intake and Output for Last 24 Hours 04/15/23 04/16/23 04/17/23 23:59 23:59 23:59 Intake Total 2050 / 2050 2100 / 2200 1100 / 1100 Output Total 1300 / 1300 1100 / 1450 350 / 350 Balance 750 / 750 1000 / 750 750 / 750 Lab / Micro Data 04/17/23 06:41 04/17/23 06:41 Labs: Laboratory Results - last 24 hr 04/16/23 14:08: Troponin I High Sens 1109 H* 04/17/23 06:41: WBC 6.5, RBC 3.08 L, Hgb 11.1 L, Hct 35.5 L, MCV 115.3 H, MCH 36.0 H, MCHC 31.3 L, RDW Std Deviation 53.8 H, RDW Coeff of Bhupinder 12.6, Plt Count 98 L, MPV 10.3, Immature Gran % (Auto) 0.500, Neut % (Auto) 67.4, Lymph % (Auto) 16.2 L, [place] % (Auto) 5.2, Eos % (Auto) 10.2 H, Baso % (Auto) 0.5, Absolute Neuts (auto) 4.4, Absolute Lymphs (auto) 1.05, Nucleated RBC % 0, Diff Path Review May foll, Sodium 141, Potassium 4.3, Chloride 113 H, Carbon Dioxide 27.0, Anion Gap 1 L, BUN 17, Creatinine 0.92, Estim Creat Clear Calc 45.93, Est GFR (MDRD) Af Amer 75, Est GFR (MDRD) Non-Af 62, BUN/Creatinine Ratio 18.5, Glucose 101, Calcium 8.2 L, Magnesium 1.8, B-Natriuretic Peptide 278.2 H Micro: Microbiology 04/14/23 21:10 Mucosa - Nose SARS-CoV-2, Influenza & RSV (PCR) - Final Rhythm Strip Rhythm Strip: Sinus Rhythm Rate: 86 Ectopy: None Physical Exam Const alert, no apparent distress and well nourished Constitutional Narrative: Debilitated, elderly, white female, lying in bed sleeping fairly soundly but will arouse slightly to have minimal conversation, mentation was better at the time of me leaving the room and her daughters at the bedside, appears chronically ill, nontoxic General Appearance: cooperative HEENT normocephalic, head/scalp atraumatic and moist oral mucous membranes HEENT Narrative: Mild to moderate hearing loss with hearing aids in place, oropharynx is dry, patient is having some epistaxis that is mild Resp normal respiratory effort, no retractions, no use of accessory muscles and No clear to auscultation bilaterally Resp Narrative: Mild crackles at bases bilaterally however patient is somewhat malpositioned and slumped over in her bed sleeping with shallow breath Auscultation: Negative for crackles, rhonchi or wheezes Cardio regular rate, regular rhythm, S1 normal heart sound, S2 normal heart sound, no murmurs, no rub, no gallops and no clicks GI normal to inspection, nondistended, normoactive bowel sounds, soft to palpation and non-tender Extremity no clubbing, cyanosis or edema Extremity Narrative: Pedal pulses are 2+ Skin Skin Narrative: Patient has no evidence of rash. Neuro oriented x3, moves all extremities and no focal motor deficits Neuro Narrative: Significant generalized weakness noted with proximal musculature weaker than distal Sensorium / Orientation: awake, alert, oriented to person and oriented to place Speech: speech normal Psych affect normal Psych Narrative: Patient appears very fatigued however affect is stable and mood is unremarkable, very pleasant upon interaction Assessment & Plan Assessment/Plan (1) Hypokalemia: (2) Pulmonary emboli: QUALIFIERS: Pulmonary embolism type: single subsegmental (without acute cor pulmonale) Qualified Code(s): I26.93 - Single subsegmental pulmonary embolism without acute cor pulmonale (3) Pleural effusion: (4) Acute heart failure with preserved ejection fraction (HFpEF): (5) Leukocytosis: (6) Thrombocytopenia: (7) Elevated troponin: (8) Fall: QUALIFIERS: Encounter type: initial encounter Qualified Code(s): W19.XXXA - Unspecified fall, initial encounter (9) Hypoxia: PLAN: Plan Acute hypoxia secondary to acute pulmonary embolism and acute decompensated heart failure with preserved ejection fraction -Highly doubt pneumonia as patient does not have fever, chills, sputum production or significant cough and onset was acute -CT of the chest was reviewed and compared to previous and patchy ground glass opacities were noted throughout the lung solorio bilaterally that were new when compared to her previous CT in February -BNP was obtained and found to be markedly elevated at 224 and has trended up -I did transition her to oral Lasix yesterday due to a slight bump in her serum creatinine however I will transition her back to IV diuretics but switch to [place] due to low albumin and see if we get better results -Patient is currently on 1 L of nasal cannula with oxygen saturations at 96-99% -I did trial her on room air however she did desat at rest to 87% while she was sleeping -Echocardiogram was performed due to troponin elevation and showed an EF of 60% with no diastolic dysfunction -I do suspect the acute heart failure may be related to acute blood pressure elevations along with PE despite no strain being noted on her echo or CT -Continue Eliquis 10 mg p.o. twice daily for 7 days then transition to 5 mg daily-currently day 3 of 7 for 10 mg -PE is provoked with recent COVID infection and debility and therefore would treat for 3 to 6 months -If patient remains subjectively short of breath despite becoming euvolemic and ongoing treatment of her PE will discuss further with cardiology about possible cardiac catheterization and consider pulmonary medicine consult however it does not sound like family will want a pursue aggressive diagnostic approach to her potential coronary disease at this time. Epistaxis -Likely related to anticoagulation and dry nasal passageways due to supplemental oxygen -Humidify oxygen -Add [place] nasal spray Left-sided neck pain -Patient has been having some left-sided neck pain that radiates into her left chest -It is all reproducible with positioning of her neck and palpitation of her anterior chest wall -I do suspect this is all musculoskeletal -Lidocaine patch added -Will schedule Tylenol 1000 every 8 -Reevaluate for symptom control tomorrow next-would like to avoid sedating medications including muscle relaxants and opiates since she is currently already fairly tired Recent COVID-19 infection -Diagnosed with COVID on 2023 -Went for rehab following and daughter states she is never quite been back to her baseline prior since then -Suspect she is having some symptoms of long COVID -Current functional status is overall worse than it had been prior to her admission Thrombocytopenia -This was new as of February -Suspect may be related to her acute COVID infection -Platelets are stable at 98,000 -Check peripheral smear--> ordered and pending -Repeat CBC in a.m. Hypokalemia -Resolved but monitor closely with diuresis Troponin elevation -Echo with normal EF and no wall motion abnormality -Per cardiology feels that this is likely a type II NSTEMI related to her hypoxia -Sat was 84% on presentation -No cardiac workup further required at this time but will refer to outpatient to consider for stress test after discharge -Continue Coreg 12.5 mg twice daily Mild leukocytosis -Resolved Uncontrolled hypertension -Blood pressures overall much better -Continue home losartan -Continue Coreg 12.5 mg p.o. twice daily -Continue as needed hydralazine for systolic pressure greater than 160 and continue to monitor Fall/generalized weakness -PT/OT following the patient is doing very poorly with physical therapy and minimally able to participate -Plan is for TCU at discharge -Case management/social work is following Hyperlipidemia -Continue home statin Hypothyroidism -Continue home Synthroid OA -Continue home as needed Tylenol Dementia -Continue home donepezil -Continue home memantine -Patient is having a little bit of anxiety and some sundowning so we will add some risperidone Depression -Continue home paroxetine DVT prophylaxis -Continue Eliquis CODE STATUS -Full code is verified on admission Extensive conversation greater than 30 minutes had with daughter at the bedside, questions answered with regards to her current diagnoses and overall plan of care. We did discuss her mother's overall functional status and it sounds like she has been slowly declining over time however since her acute COVID-19 infec tion her decline has been more dramatic. Since her hospitalization she is much more fatigued and less interactive however seems to be her old self at times but is less so than she had been previously. She is markedly weak and not participating much with physical therapy. I did discuss with her her elevated BNP and heart failure. I did give her IV diuretics and her BUN and creatinine trended up so this was transitioned to oral diuretics yesterday however BNP has trended up slightly so I feel like we should transition back to IV diuretics and possibly sacrifice her kidneys a bit to get her more euvolemic. This is most likely related to may be some untreated sleep apnea, acute PE, elevated blood pressure and mild pulmonary hypertension. We have been able to wean her oxygen but she had been on room air previously. We overall prognosis and CODE STATUS. She currently is a full code and I did explain to the daughter what that meant and she did not feel that she and her brothers would want to persist with this however she will have a discussion with them. The plan currently is to trial a bit more aggressive diuresis see if we can get her musculoskeletal pain under better control and improve her functional status some so she will be able to go to TCU however her functional status currently will prohibit that. I feel like if we discharged her to TCU at this time she would be readmitted here due to her current condition. We did briefly discuss hospice as a possibility and she plans on discussing this further with her brothers as well and may be set up of family meeting later on in her hospital course depending on progress. Charges/Coding Visit Charges Inpatient E&M: 60957 Subs Hosp L3 Procedures Hospitalists Procedures: 33424 Advncd Care Plan 30 Min
[2023-04-17 13:59] LABS: Differential Comment SCANNED
[2023-04-17 14:29] LABS: Pathologist Review Reviewed
[2023-04-17] MEDS: Sodium Chloride 0.65% 1 SPRAY SPRAY.BTL 2 SPRAY NASAL ×2 (15:12→22:11)
[2023-04-17] MEDS: oxyCODONE 5 MG Tablet 2.5 MG PO (16:26)
[2023-04-17] MEDS: Losartan Potassium 100 MG Tablet PO (22:08)
[2023-04-17] MEDS: Atorvastatin Calcium 20 MG Tablet PO (22:08)
[2023-04-17] MEDS: Levothyroxine 75 MCG Tablet PO (22:10)
[2023-04-17] MEDS: RisperiDONE 0.25 MG Tablet PO (22:10)
[2023-04-17] MEDS: PARoxetine 10 MG Tablet PO (22:10)
[2023-04-17] MEDS: Donepezil HCl 10 MG Tablet PO (22:12)
[2023-04-18] VITALS (10 sets, daily range): BP systolic 105–142; BP diastolic 61–79; PULSE 60–70; RESP 16–28; TEMP 36.4–36.8; O2SAT 87–100; BMI 28.5
[2023-04-18 07:52] LABS: Absolute Lymphocyte Count 1.07 X10^3/uL (0.83-4.51); Absolute Neutrophil Count 3.9 X10^3/uL (2.0-7.7); Basophil# 0.02 X10^3/uL; Basophil% 0.3 % (0-1); Eosinophil# 0.71 X10^3/uL; Eosinophils% 11.6 % (0-5); Hematocrit 35.8 % (37-47); Hemoglobin 11.1 g/dL (12.0-15.0); Lymphocyte # 1.07 X10^3/ul (0.83-4.51); Lymphocyte % 17.5 % (19-41); Mean Corpuscular Hgb 35.7 pg (27.0-32.0); Mean Corpuscular Volume 115.1 fL (81-99); Mean Platelet Vol. 10.8 fl (6.2-12.0); Monocyte# 0.43 X10^3/uL; NRBC Flagged by Analyzer 0 % (0-5); Neutrophil # 3.87 X10^3/uL (2.7-7.7); Neutrophil % 63.1 % (47-70); Platelet Count 104 K/mm3 (150-450); RBC Distribution Width CV 12.4 % (11.6-14.6); RBC Distribution Width SD 52.8 fl (35.1-43.9); Red Blood Count 3.11 M/mm3 (4.2-5.4); White Blood Count 6.1 K/mm3 (4.4-11.0)
[2023-04-18 08:22] LABS: Anion Gap 2 (5-15); BUN 21 mg/dL (7-18); BUN/Creat Ratio 19.8 RATIO (10-20); Calcium,Total 8.7 mg/dL (8.5-10.1); Chloride 114 mmol/L (98-107); Creatinine, Serum 1.06 mg/dL (0.55-1.02); EST Glomerular Filtration Rate 52 mL/min (>60); Est Glom Filt Rate - Afr Amer 63 mL/min (>60); Estimated Creatinine Clearance 40.01 ml/min; Glucose 102 mg/dL (74-106); Potassium 4.2 mmol/L (3.5-5.1); Sodium Level 143 mmol/L (136-145)
[2023-04-18] MEDS: Ascorbic Acid 500 MG Tablet 1000 MG PO ×2 (10:01→17:09)
[2023-04-18] MEDS: Aspirin 81 MG TAB.CHEW PO (10:01)
[2023-04-18] MEDS: guaiFENesin 1,200 MG Tablet 1200 MG PO ×2 (10:02→21:16)
[2023-04-18] MEDS: Bumetanide 1 MG/4 ML Vial 2 MG IV ×2 (10:02→17:10)
[2023-04-18] MEDS: Lidocaine 5% Patch 1 PATCH TOPICAL (10:02)
[2023-04-18] MEDS: Clopidogrel Bisulfate 75 MG Tablet PO (10:02)
[2023-04-18] MEDS: 0.9% Saline Lock 10 ML Syringe IV ×2 (10:02→17:09)
[2023-04-18] MEDS: APIXABAN 5 MG TABLET 10 MG PO ×2 (10:03→21:16)
[2023-04-18] MEDS: Carvedilol 12.5 MG Tablet PO ×2 (10:03→21:11)
[2023-04-18] MEDS: Memantine Hydrochloride 10 MG Tablet PO ×2 (10:03→21:13)
[2023-04-18] MEDS: Sodium Chloride 0.65% 1 SPRAY SPRAY.BTL 2 SPRAY NASAL (10:04)
[2023-04-18] MEDS: Cholecalciferol (Vit D3) 125 MCG CAPSULE (5,000 UNITS) PO (10:04)
[2023-04-18] MEDS: Zinc Sulfate 50 mg zinc (220 mg) ORAL capsule PO (10:04)
[2023-04-18] MEDS: Acetaminophen 500 MG Tablet 1000 MG PO ×2 (12:09→21:04)
[2023-04-18] MEDS: KCL 20MEQ in 0.9% NS 20 MEQ/1,000 ML IV.SOLN. 70 MEQ IV (12:12)
--- NOTE | 2023-04-18 13:55 | PN.HOSP_ITS ---
Reason for Visit Reason for Visit: Shortness of breath/fall Subjective Subjective Per nursing she did have some owning but it appears like her anxiety was be tter and she may have slept little bit better last night with the risperidone. I will continue this. We again tested her room air oxygen saturations and they were 87% however she is currently on 1 L. She states her breathing overall feels better and her left-sided neck pain and upper chest pain is improved with the changes we made yesterday. Therapy has not evaluated her as of yet today. She has diuresed with Lasix. Objective Data Objective Data Vital Signs: Vital Signs Temp Pulse Resp BP Pulse Ox O2 Del Method O2 Flow Rate 98.3 F 70 18 123/64 H 93 Nasal Cannula 1 04/18/23 10:00 04/18/23 10:00 04/18/23 10:00 04/18/23 10:00 04/18/23 10:30 04/18/23 10:30 04/18/23 10:30 Oxygen Flow Rate (L/min) 1 Oxygen Delivery Method Nasal Cannula Weight: 77.8 kg Body Mass Index (BMI) 28.5 Intake & Output: Intake and Output for Last 24 Hours 04/16/23 04/17/23 04/18/23 23:59 23:59 23:59 Intake Total 2100 / 2200 1793 / 1793 1220 / 1220 Output Total 1100 / 1450 750 / 1350 1650 / 1650 Balance 1000 / 750 1043 / 443 -430 / -430 Lab / Micro Data 04/18/23 07:23 04/18/23 07:23 Labs: Laboratory Results - last 24 hr 04/16/23 06:35: Diff Path Review Reviewed 04/17/23 06:41: Differential Comment SCANNED 04/18/23 07:23: WBC 6.1, RBC 3.11 L, Hgb 11.1 L, Hct 35.8 L, MCV 115.1 H, MCH 35.7 H, MCHC 31.0 L, RDW Std Deviation 52.8 H, RDW Coeff of Bhupinder 12.4, Plt Count 104 L, MPV 10.8, Immature Gran % (Auto) 0.500, Neut % (Auto) 63.1, Lymph % (Auto) 17.5 L, [place] % (Auto) 7.0, Eos % (Auto) 11.6 H, Baso % (Auto) 0.3, Absolute Neuts (auto) 3.9, Absolute Lymphs (auto) 1.07, Nucleated RBC % 0, Sodium 143, Potassium 4.2, Chloride 114 H, Carbon Dioxide 27.0, Anion Gap 2 L, BUN 21 H, Creatinine 1.06 H, Estim Creat Clear Calc 40.01, Est GFR (MDRD) Af Amer 63, Est GFR (MDRD) Non-Af 52 L, BUN/Creatinine Ratio 19.8, Glucose 102, Calcium 8.7 Micro: Microbiology 04/14/23 21:10 Mucosa - Nose SARS-CoV-2, Influenza & RSV (PCR) - Final Rhythm Strip Rhythm Strip: Sinus Rhythm Rate: 86 Ectopy: None Physical Exam Const alert, no apparent distress and well nourished Constitutional Narrative: Debilitated, elderly, white female, l more awake today and participating in conversation some, her sons and [id number] are at the bedside, appears chronically ill, nontoxic General Appearance: cooperative HEENT normocephalic, head/scalp atraumatic and moist oral mucous membranes HEENT Narrative: Mild to moderate hearing loss noted, no active epistaxis however there is some dried blood around the nares Resp normal respiratory effort, no retractions, no use of accessory muscles and No clear to auscultation bilaterally Resp Narrative: Mild crackles at bases bilaterally that seem to have improved since yesterday but still present Auscultation: Negative for crackles, rhonchi or wheezes Cardio regular rate, regular rhythm, S1 normal heart sound, S2 normal heart sound, no murmurs, no rub, no gallops and no clicks GI normal to inspection, nondistended, normoactive bowel sounds, soft to palpation and non-tender Extremity normal to inspection, full ROM and no clubbing, cyanosis or edema Extremity Narrative: Pedal pulses are 2+ Neuro moves all extremities and no focal motor deficits Neuro Narrative: Significant generalized weakness noted with proximal musculature weaker than distal, speech is intelligible and quality is normal however phonation is somew hat soft Sensorium / Orientation: awake and alert Speech: speech normal Psych affect normal Psych Narrative: Patient appears very fatigued however affect is stable and mood is unremarkable, very pleasant upon interaction Assessment & Plan Assessment/Plan (1) Hypokalemia: (2) Pulmonary emboli: QUALIFIERS: Pulmonary embolism type: single subsegmental (without acute cor pulmonale) Qualified Code(s): I26.93 - Single subsegmental pulmonary embolism without acute cor pulmonale (3) Pleural effusion: (4) Acute heart failure with preserved ejection fraction (HFpEF): (5) Leukocytosis: (6) Thrombocytopenia: (7) Elevated troponin: (8) Fall: QUALIFIERS: Encounter type: initial encounter Qualified Code(s): W19.XXXA - Unspecified fall, initial encounter (9) Hypoxia: PLAN: Plan Acute hypoxia secondary to acute pulmonary embolism and acute decompensated heart failure with preserved ejection fraction -Highly doubt pneumonia as patient does not have fever, chills, sputum production or significant cough and onset was acute -CT of the chest was reviewed and compared to previous and patchy ground glass opacities were noted throughout the lung solorio bilaterally that were new when compared to her previous CT in February -BNP was obtained and found to be markedly elevated at 224 and has trended up -Will repeat BNP tomorrow -Continue Bumex as ordered -Patient is currently on 1 L of nasal cannula with stable oxygen saturations consistently greater than 88% -She is still dropping on room air however -Echocardiogram was performed due to troponin elevation and showed an EF of 60% with no diastolic dysfunction -I do suspect the acute heart failure may be related to acute blood pressure elevations along with PE despite no strain being noted on her echo or CT -Continue Eliquis 10 mg p.o. twice daily for 7 days then transition to 5 mg daily-currently day 4 of 7 for 10 mg -PE is provoked with recent COVID infection and debility and therefore would treat for 3 to 6 months -Breathing is better today -Speech therapy evaluated the patient and is recommending regular textures and thin liquids with compensatory strategies and assist feeding due to her debility Epistaxis -Likely related to anticoagulation and dry nasal passageways due to supplemental oxygen -No active bleeding at this time -Humidify oxygen -Continue [place] nasal spray Left-sided neck pain -Patient has been having some left-sided neck pain that radiates into her left chest -It is all reproducible with positioning of her neck and palpitation of her ante rior chest wall -I do suspect this is all musculoskeletal -Better today -Continue lidocaine patch -Continue scheduled Tylenol 1000 every 8 -Would continue to avoid sedating medication Recent COVID-19 infection -Diagnosed with COVID on 2023 -Went for rehab following and daughter states she is never quite been back to her baseline prior since then -Suspect she is having some symptoms of Long COVID -Current functional status is overall worse than it had been prior to her admission Thrombocytopenia -This was new as of February -Suspect may be related to her acute COVID infection -Platelets are stable with a slight uptrend to 104,000 -Check peripheral smear--> ordered but remains pending -Repeat CBC in a.m. Troponin elevation -Echo with normal EF and no wall motion abnormality -Per cardiology feels that this is likely a type II NSTEMI related to her hypoxia -Sat was 84% on presentation--> now up to 87% on room air -No cardiac workup further required at this time but will refer to outpatient to consider for stress test after discharge -Continue Coreg 12.5 mg twice daily Uncontrolled hypertension -Blood pressures overall much better -Continue home losartan -Continue Coreg 12.5 mg p.o. twice daily -Continue as needed hydralazine for systolic pressure greater than 160 and continue to monitor -No use has been required Fall/generalized weakness -PT/OT following the patient is doing very poorly with physical therapy and minimally able to participate -Tentative plan is for TCU at discharge, however we are going to see how she does in the next 24 to 48 hours functionally and make further decisions from there -Case management/social work is following Hyperlipidemia -Continue home statin Hypothyroidism -Continue home Synthroid OA -Continue home as needed Tylenol Dementia -Continue home donepezil -Continue home memantine -Continue low-dose risperidone Depression -Continue home paroxetine DVT prophylaxis -Continue Eliquis CODE STATUS -DNR CCA with no intubation-order changed Had extensive conversation with her sons today. Reiterated what I had talked about yesterday with the patient's daughter. We did further discuss CODE STATUS and they would like to transition to DNR CCA with no intubation. We did discuss that overall right now I do not feel that she is going to do very well and rehab setting. She is currently not tolerating much therapy. Oral intake does seem to be a little bit better today however still is not good. It does seem that patient has had worsening failure since she suffered from COVID and I do suspect she is suffering from some long COVID as well as manifestations or complications related to her previous infection. We did discuss that I suspect that she at the very least have some subendocardial ischemia with her troponin elevation however she could have large vessel obstruction that we are unaware of however putting her through cardiac catheterization at this time is not something they would want to pursue. I do feel she is high risk for readmission after discharge to TCU at this time and we will reevaluate over the next 24 and 48 hours and make further decisions on Thursday after we have optimized her to the best of her ability from medical standpoint. Charges/Coding Visit Charges Inpatient E&M: 32883 Subs Hosp L2
[2023-04-18] MEDS: Atorvastatin Calcium 20 MG Tablet PO (21:12)
[2023-04-18] MEDS: Losartan Potassium 100 MG Tablet PO (21:12)
[2023-04-18] MEDS: Levothyroxine 75 MCG Tablet PO (21:13)
[2023-04-18] MEDS: Donepezil HCl 10 MG Tablet PO (21:16)
[2023-04-18] MEDS: PARoxetine 10 MG Tablet PO (21:17)
[2023-04-18] MEDS: RisperiDONE 0.25 MG Tablet PO (21:17)
[2023-04-18] MEDS: Albuterol 2.5 MG/3 ML VIAL.NEB. INHALATION (22:42)
[2023-04-19] VITALS (7 sets, daily range): BP systolic 107–155; BP diastolic 56–86; PULSE 60–70; RESP 16–20; TEMP 36.3–36.8; O2SAT 88–96; BMI 28.8
[2023-04-19] MEDS: KCL 20MEQ in 0.9% NS 20 MEQ/1,000 ML IV.SOLN. 70 MEQ IV ×2 (00:40→13:57)
--- NOTE | 2023-04-19 05:40 | RAD_ITS ---
STUDY: X-RAY CHEST REASON FOR EXAM: Female, 83 years old. Fever and cough TECHNIQUE: Single AP portable view of the chest. COMPARISON: 04/14/2023 FINDINGS: EKG leads overlie the chest Chronic interstitial changes in both lung solorio without a superimposed acute pulmonary process. Normal size heart. Normal mediastinum and timothy. Normal visualized pulmonary arteries. Normal visualized aortic arch and descending thoracic aorta. There are diffuse degenerative changes of the visualized thoracic spine. There is degenerative osteoarthritis of the bilateral shoulders. There is no demonstrated abnormality of the visualized soft tissue structures of the upper abdomen. RAD/Chest 1 View (Portable) IMPRESSION: Chronic interstitial changes, no superimposed acute pulmonary process Electronically Signed: Masood Ramírez MD at 14:21 EST ,
[2023-04-19] MEDS: Acetaminophen 500 MG Tablet 1000 MG PO ×3 (06:12→21:00)
[2023-04-19 06:51] LABS: Hematocrit 35.2 % (37-47); Hemoglobin 11.2 g/dL (12.0-15.0); Mean Corp Hgb Conc 31.8 g/dL (32-36); Mean Corpuscular Hgb 36.5 pg (27.0-32.0); Mean Corpuscular Volume 114.7 fL (81-99); Mean Platelet Vol. 10.5 fl (6.2-12.0); Platelet Count 107 K/mm3 (150-450); RBC Distribution Width CV 12.4 % (11.6-14.6); RBC Distribution Width SD 52.3 fl (35.1-43.9); Red Blood Count 3.07 M/mm3 (4.2-5.4); White Blood Count 5.7 K/mm3 (4.4-11.0)
[2023-04-19 07:14] LABS: Anion Gap 2 (5-15); BUN 24 mg/dL (7-18); Calcium,Total 8.8 mg/dL (8.5-10.1); Chloride 114 mmol/L (98-107); EST Glomerular Filtration Rate 45 mL/min (>60); Est Glom Filt Rate - Afr Amer 55 mL/min (>60); Estimated Creatinine Clearance 35.52 ml/min; Glucose 112 mg/dL (74-106); Potassium 4.2 mmol/L (3.5-5.1); Sodium Level 143 mmol/L (136-145)
[2023-04-19 07:30] LABS: BNP,B-Type NATRIURETIC PEPTIDE 141.3 pg/mL (0-100)
[2023-04-19] MEDS: guaiFENesin 1,200 MG Tablet 1200 MG PO (09:05)
[2023-04-19] MEDS: Bumetanide 0.5 MG Tablet 1 MG PO ×2 (09:05→20:59)
[2023-04-19] MEDS: Carvedilol 12.5 MG Tablet PO ×2 (09:05→21:01)
[2023-04-19] MEDS: Zinc Sulfate 50 mg zinc (220 mg) ORAL capsule PO (09:05)
[2023-04-19] MEDS: Sodium Chloride 0.65% 1 SPRAY SPRAY.BTL 2 SPRAY NASAL (09:05)
[2023-04-19] MEDS: Lidocaine 5% Patch 1 PATCH TOPICAL (09:05)
[2023-04-19] MEDS: Aspirin 81 MG TAB.CHEW PO (09:05)
[2023-04-19] MEDS: APIXABAN 5 MG TABLET 10 MG PO ×2 (09:05→21:00)
[2023-04-19] MEDS: Ascorbic Acid 500 MG Tablet 1000 MG PO (09:05)
[2023-04-19] MEDS: Cholecalciferol (Vit D3) 125 MCG CAPSULE (5,000 UNITS) PO (09:05)
[2023-04-19] MEDS: Clopidogrel Bisulfate 75 MG Tablet PO (09:05)
[2023-04-19] MEDS: Memantine Hydrochloride 10 MG Tablet PO (09:06)
--- NOTE | 2023-04-19 16:04 | PCM.PN.HOSP ---
Reason for Visit Reason for Visit: Diagnoses Thrombocytopenia, unspecified (04/14/23) Elevated white blood cell count, unspecified (04/14/23) Hypokalemia (04/14/23) Single subsegmental pulmonary embolism without acute cor pulmonale (04/14/23) Acute diastolic (congestive) heart failure (04/14/23) Pneumonia, unspecified organism (04/14/23) Pleural effusion, not elsewhere classified (04/14/23) Hypoxemia (04/14/23) Other specified abnormal findings of blood chemistry (04/14/23) Unspecified fall, initial encounter (04/14/23) Subjective Subjective No significant issues overnight. The risperidone seems to be helping her with her anxiety and sleep little bit better. Patient still minimally working with therapies. P.o. intake is continued to be extremely poor. She states her breathing is better but still requiring 1 L of oxygen to maintain sats above 88 while at rest on room air. Patient seems to be fairly euvolemic at this time. Objective Data Objective Data Vital Signs: Vital Signs Temp Pulse Resp BP Pulse Ox O2 Del Method O2 Flow Rate 97.4 F L 67 18 155/77 H 94 Nasal Cannula 1 04/19/23 15:05 04/19/23 15:05 04/19/23 15:05 04/19/23 15:05 04/19/23 15:05 04/19/23 15:05 04/19/23 15:05 Oxygen Flow Rate (L/min) 1 Oxygen Delivery Method Nasal Cannula Weight: 78.6 kg Body Mass Index (BMI) 28.8 Intake & Output: Intake and Output for Last 24 Hours 04/17/23 04/18/23 04/19/23 23:59 23:59 23:59 Intake Total 1793 / 1793 1460 / 1960 2422.50 / 2422.50 Output Total 750 / 1350 2550 / 2550 850 / 850 Balance 1043 / 443 -1090 / -590 1572.50 / 1572.50 Lab / Micro Data 04/19/23 06:44 04/19/23 06:44 Labs: Laboratory Results - last 24 hr 04/19/23 06:44: WBC 5.7, RBC 3.07 L, Hgb 11.2 L, Hct 35.2 L, MCV 114.7 H, MCH 36.5 H, MCHC 31.8 L, RDW Std Deviation 52.3 H, RDW Coeff of Bhupinder 12.4, Plt Count 107 L, MPV 10.5, Sodium 143, Potassium 4.2, Chloride 114 H, Carbon Dioxide 27.0, Anion Gap 2 L, BUN 24 H, Creatinine 1.20 H, Estim Creat Clear Calc 35.52, Est GFR (MDRD) Af Amer 55 L, Est GFR (MDRD) Non-Af 45 L, BUN/Creatinine Ratio 20.0, Glucose 112 H, Calcium 8.8, B-Natriuretic Peptide 141.3 H Micro: Microbiology 04/14/23 21:10 Mucosa - Nose SARS-CoV-2, Influenza & RSV (PCR) - Final Radiography Diagnostic Testing: Radiology Impression Chest X-Ray 04/19/23 05:40 IMPRESSION: Chronic interstitial changes, no superimposed acute pulmonary process Electronically Signed: Masood Ramírez MD at 14:21 EST Reading Location ID and State: [address] [place] [address] , Service support , Rhythm Strip Rhythm Strip: Sinus Rhythm Rate: 86 Ectopy: None Physical Exam Const alert, no apparent distress and well nourished; Negative for oriented x3, average body habitus or healthy appearing Constitutional Narrative: Debilitated, elderly, white female, sleeping intermittently during my evaluation however able to interact with me some with regards to goals of care, appears chronically ill, nontoxic General Appearance: cooperative HEENT normocephalic, head/scalp atraumatic, hearing grossly normal bilaterally and moist oral mucous membranes HEENT Narrative: Nasal cannula in place with blood-tinged nasal drainage intermittently but no deidra bleeding Resp normal respiratory effort, no retractions, no use of accessory muscles and No clear to auscultation bilaterally Resp Narrative: Effort is limited with deep breathing and breaths are shallow, she appears to have some altered breathing pattern however she has no complaints of shortness of breath Auscultation: Negative for crackles, rhonchi or wheezes Cardio regular rate, regular rhythm, S1 normal heart sound, S2 normal heart sound, no murmurs, no rub, no gallops and no clicks GI normal to inspection, nondistended, normoactive bowel sounds, soft to palpation and non-tender Extremity no clubbing, cyanosis or edema Extremity Narrative: Pedal pulses are 2+ Neuro moves all extremities and no focal motor deficits Neuro Narrative: Significant generalized weakness noted with proximal musculature weaker than distal, speech is intelligible and quality is normal however phonation is somewhat soft, patient has difficulty with even minimal exercise and bed mobility Sensorium / Orientation: awake, alert and oriented to person Speech: speech normal Psych affect normal Psych Narrative: Patient appears very fatigued however affect is stable and mood is good, very pleasant Assessment & Plan Assessment/Plan (1) Hypokalemia: (2) Pulmonary emboli: QUALIFIERS: Pulmonary embolism type: single subsegmental (without acute cor pulmonale) Qualified Code(s): I26.93 - Single subsegmental pulmonary embolism without acute cor pulmonale (3) Pleural effusion: (4) Acute heart failure with preserved ejection fraction (HFpEF): (5) Leukocytosis: (6) Thrombocytopenia: (7) Elevated troponin: (8) Fall: QUALIFIERS: Encounter type: initial encounter Qualified Code(s): W19.XXXA - Unspecified fall, initial encounter (9) Hypoxia: PLAN: Plan Acute hypoxia secondary to acute pulmonary embolism and acute decompensated heart failure with preserved ejection fraction -Highly doubt pneumonia as patient does not have fever, chills, sputum production or significant cough and onset was acute -CT of the chest was reviewed and compared to previous and patchy ground glass opacities were noted throughout the lung solorio bilaterally that were new when compared to her previous CT in February -BNP was obtained and found to be markedly elevated at 224 and has trended up -BNP is down to 140 today -Continue Bumex but transition to 1 mg twice daily -Patient is currently on 1 L of nasal cannula with stable oxygen saturations consistently greater than 88% -She is still dropping on room air however -Suspect due to shallow breathing, bibasilar atelectasis and I do suspect she has some possible sleep apnea -Echocardiogram was performed due to troponin elevation and showed an EF of 60% with no diastolic dysfunction -I do suspect the acute heart failure may be related to acute blood pressure elevations along with PE despite no strain being noted on her echo or CT -Continue Eliquis 10 mg p.o. twice daily for 7 days then transition to 5 mg daily-currently day 5 of 7 for 10 mg -PE is provoked with recent COVID infection and debility and therefore would treat for 3 to 6 months -Speech therapy evaluated the patient and is recommending regular textures and thin liquids with compensatory strategies and assist feeding due to her debility Epistaxis -Likely related to anticoagulation and dry nasal passageways due to supplemental oxygen -Stop Plavix -Humidify oxygen -Continue [place] nasal spray Left-sided neck pain -Patient has been having some left-sided neck pain that radiates into her left chest -It is all reproducible with positioning of her neck and palpitation of her anterior chest wall -I do suspect this is all musculoskeletal--> advanced imaging would be of no benefit at this time as family would not want to pursue any surgical options -Better today -Continue lidocaine patch -Continue scheduled Tylenol 1000 every 8 -Add low-dose as needed ibuprofen -Would continue to avoid sedating medication Recent COVID-19 infection -Diagnosed with COVID on 2023 -Went for rehab following and daughter states she is never quite been back to her baseline prior since then -Suspect she is having some symptoms of Long COVID -Current functional status is overall worse than it had been prior to her admission Thrombocytopenia -This was new as of February -Suspect may be related to her acute COVID infection -Platelets are stable with a slight uptrend to 107,000 Troponin elevation -Echo with normal EF and no wall motion abnormality -Per cardiology feels that this is likely a type II NSTEMI related to her hypoxia and possible subendocardial ischemia with her echo being unremarkable -Sat was 84% on presentation--> remains 87% on room air -No cardiac workup further required at this time but will refer to outpatient to consider for stress test after discharge -Continue Coreg 12.5 mg twice daily Uncontrolled hypertension -Blood pressures overall much better -Continue home losartan -Continue Coreg 12.5 mg p.o. twice daily -Continue as needed hydralazine for systolic pressure greater than 160 and continue to monitor -No use has been required Fall/generalized weakness -PT/OT following the patient is doing very poorly with physical therapy and minimally able to participate -Marked limitation with participation due to fatigue and severe weakness--> hospice consulted -Case management/social work is following Hyperlipidemia -Continue home statin Hypothyroidism -Continue home Synthroid OA -Continue home as needed Tylenol Dementia -Discontinue home memantine and donepezil -Continue low-dose risperidone Depression -Continue home paroxetine DVT prophylaxis -Continue Eliquis CODE STATUS -DNR CCA with no intubation Further conversation today with her family. Performance status is continued to be extremely poor and she is minimally able to participate with any productive occupational and physical therapy. We did discuss that 24 hours is likely not going to change this. She is optimized from a medical standpoint. She is just requiring 1 L of oxygen at rest and I suspect this is related to atelectasis related to decreased deep breathing and possibly some obstructive sleep apnea baseline. Her white count remains normal off antibiotics. We have diuresed her to the point where her creatinine has bumped some so we are going to decrease her Lasix today and put her on oral medications. Family would like to pursue hospice. I did address this with the patient and I think she had some minimal understanding but is anxious to go home and be with her family. Hospice was consulted. I suspect they will meet with family tomorrow and will need to get home ready as the plan is for home with hospice. Anticipate discharge on 04/20/2023 versus 04/21/2023. I have completed the med reconciliation and the only addition to that we will need to be apixaban 10 mg as I am unclear how many more days she will require and this is dependent on which day she gets discharged. Charges/Coding Visit Charges Inpatient E&M: 93962 Subs Hosp L2 Procedures Hospitalists Procedures: 66764 Advncd Care Plan 30 Min
[2023-04-19] MEDS: Ibuprofen 400 MG Tablet PO (19:23)
[2023-04-19] MEDS: PARoxetine 10 MG Tablet PO (21:00)
[2023-04-19] MEDS: Levothyroxine 75 MCG Tablet PO (21:01)
[2023-04-19] MEDS: Losartan Potassium 100 MG Tablet PO (21:02)
[2023-04-19] MEDS: RisperiDONE 0.25 MG Tablet PO (21:06)
[2023-04-20 03:10] VITALS: BMI 28.6
[2023-04-20] MEDS: KCL 20MEQ in 0.9% NS 20 MEQ/1,000 ML IV.SOLN. 70 MEQ IV (04:19)
[2023-04-20 04:23] VITALS: BP 118/63; PULSE 63; RESP 20; TEMP 36.2; O2SAT 96
[2023-04-20 04:25] VITALS: BP 118/63; PULSE 63; RESP 20; TEMP 36.8; O2SAT 96
[2023-04-20] MEDS: Acetaminophen 500 MG Tablet 1000 MG PO ×2 (06:14→14:03)
[2023-04-20 07:40] VITALS: O2SAT 96
--- NOTE | 2023-04-20 08:48 | PCM.PN.HOSP ---
Reason for Visit Reason for Visit: Diagnoses Thrombocytopenia, unspecified (04/14/23) Elevated white blood cell count, unspecified (04/14/23) Hypokalemia (04/14/23) Single subsegmental pulmonary embolism without acute cor pulmonale (04/14/23) Acute diastolic (congestive) heart failure (04/14/23) Pneumonia, unspecified organism (04/14/23) Pleural effusion, not elsewhere classified (04/14/23) Hypoxemia (04/14/23) Other specified abnormal findings of blood chemistry (04/14/23) Unspecified fall, initial encounter (04/14/23) Objective Data Objective Data Vital Signs: Vital Signs Temp Pulse Resp BP Pulse Ox O2 Del Method O2 Flow Rate 98.2 F 63 20 H 118/63 96 Nasal Cannula 1 04/20/23 04:25 04/20/23 04:25 04/20/23 04:25 04/20/23 04:25 04/20/23 04:25 04/20/23 04:25 04/20/23 04:25 Oxygen Flow Rate (L/min) 1 Oxygen Delivery Method Nasal Cannula Weight: 171 lb 15.369 oz Body Mass Index (BMI) 28.6 Intake & Output: Intake and Output for Last 24 Hours 04/18/23 04/19/23 04/20/23 23:59 23:59 23:59 Intake Total 1460 / 1960 2662.50 / 2662.50 1000 / 1000 Output Total 2550 / 2550 1350 / 1350 350 / 350 Balance -1090 / -590 1312.50 / 1312.50 650 / 650 Lab / Micro Data 04/19/23 06:44 04/19/23 06:44 Micro: Microbiology 04/14/23 21:10 Mucosa - Nose SARS-CoV-2, Influenza & RSV (PCR) - Final Radiography Diagnostic Testing: Radiology Impression Chest X-Ray 04/19/23 05:40 IMPRESSION: Chronic interstitial changes, no superimposed acute pulmonary process Electronically Signed: Masood Ramírez MD at 14:21 EST , Rhythm Strip Rhythm Strip: Sinus Rhythm Rate: 86 Ectopy: None Assessment & Plan Assessment/Plan (1) Hypokalemia: (2) Pulmonary emboli: QUALIFIERS: Pulmonary embolism type: single subsegmental (without acute cor pulmonale) Qualified Code(s): I26.93 - Single subsegmental pulmonary embolism without acute cor pulmonale (3) Pleural effusion: (4) Acute heart failure with preserved ejection fraction (HFpEF): (5) Leukocytosis: (6) Thrombocytopenia: (7) Elevated troponin: (8) Fall: QUALIFIERS: Encounter type: initial encounter Qualified Code(s): W19.XXXA - Unspecified fall, initial encounter (9) Hypoxia: PLAN: Plan Acute hypoxia secondary to acute pulmonary embolism and acute decompensated heart failure with preserved ejection fraction -Highly doubt pneumonia as patient does not have fever, chills, sputum production or significant cough and onset was acute -CT of the chest was reviewed and compared to previous and patchy ground glass opacities were noted throughout the lung solorio bilaterally that were new when compared to her previous CT in February -BNP was obtained and found to be markedly elevated at 224 and has trended up -BNP is down to 140 today -Continue Bumex but transition to 1 mg twice daily -Patient is currently on 1 L of nasal cannula with stable oxygen saturations consistently greater than 88% -She is still dropping on room air however -Suspect due to shallow breathing, bibasilar atelectasis and I do suspect she has some possible sleep apnea -Echocardiogram was performed due to troponin elevation and showed an EF of 60% with no diastolic dysfunction -I do suspect the acute heart failure may be related to acute blood pressure elevations along with PE despite no strain being noted on her echo or CT -Continue Eliquis 10 mg p.o. twice daily for 7 days then transition to 5 mg daily-currently day 5 of 7 for 10 mg -PE is provoked with recent COVID infection and debility and therefore would treat for 3 to 6 months -Speech therapy evaluated the patient and is recommending regular textures and thin liquids with compensatory strategies and assist feeding due to her debility Epistaxis -Likely related to anticoagulation and dry nasal passageways due to supplemental oxygen -Stop Plavix -Humidify oxygen -Continue [place] nasal spray Left-sided neck pain -Patient has been having some left-sided neck pain that radiates into her left chest -It is all reproducible with positioning of her neck and palpitation of her anterior chest wall -I do suspect this is all musculoskeletal--> advanced imaging would be of no benefit at this time as family would not want to pursue any surgical options -Better today -Continue lidocaine patch -Continue scheduled Tylenol 1000 every 8 -Add low-dose as needed ibuprofen -Would continue to avoid sedating medication Recent COVID-19 infection -Diagnosed with COVID on 2023 -Went for rehab following and daughter states she is never quite been back to her baseline prior since then -Suspect she is having some symptoms of Long COVID -Current functional status is overall worse than it had been prior to her admission Thrombocytopenia -This was new as of February -Suspect may be related to her acute COVID infection -Platelets are stable with a slight uptrend to 107,000 Troponin elevation -Echo with normal EF and no wall motion abnormality -Per cardiology feels that this is likely a type II NSTEMI related to her hypoxia and possible subendocardial ischemia with her echo being unremarkable -Sat was 84% on presentation--> remains 87% on room air -No cardiac workup further required at this time but will refer to outpatient to consider for stress test after discharge -Continue Coreg 12.5 mg twice daily Uncontrolled hypertension -Blood pressures overall much better -Continue home losartan -Continue Coreg 12.5 mg p.o. twice daily -Continue as needed hydralazine for systolic pressure greater than 160 and continue to monitor -No use has been required Fall/generalized weakness -PT/OT following the patient is doing very poorly with physical therapy and minimally able to participate -Marked limitation with participation due to fatigue and severe weakness--> hospice consulted -Case management/social work is following Hyperlipidemia -Continue home statin Hypothyroidism -Continue home Synthroid OA -Continue home as needed Tylenol Dementia -Discontinue home memantine and donepezil -Continue low-dose risperidone Depression -Continue home paroxetine DVT prophylaxis -Continue Eliquis CODE STATUS -DNR CCA with no intubation Further conversation today with her family. Performance status is continued to be extremely poor and she is minimally able to participate with any productive occupational and physical therapy. We did discuss that 24 hours is likely not going to change this. She is optimized from a medical standpoint. She is just requiring 1 L of oxygen at rest and I suspect this is related to atelectasis related to decreased deep breathing and possibly some obstructive sleep apnea baseline. Her white count remains normal off antibiotics. We have diuresed her to the point where her creatinine has bumped some so we are going to decrease her Lasix today and put her on oral medications. Family would like to pursue hospice. I did address this with the patient and I think she had some minimal understanding but is anxious to go home and be with her family. Hospice was consulted. I suspect they will meet with family tomorrow and will need to get home ready as the plan is for home with hospice. Anticipate discharge on 04/20/2023 versus 04/21/2023. I have completed the med reconciliation and the only addition to that we will need to be apixaban 10 mg as I am unclear how many more days she will require and this is dependent on which day she gets discharged.
--- NOTE | 2023-04-20 11:23 | DCINST_ITS ---
Discharge Instructions Diet Discharge Diet: No restrictions Activity Discharge Activity: May Not Drive Dressing / Incision Call your doctor if you observe: - (Home with hospice care.) Follow Up Care Test Results: Test results from this visit will be discussed in further detail at your follow- up appointment, if applicable. Discharge Plan Admission Admit Date/Time: 04/14/23 23:08 Primary Reason for Your Visit: Fall/shortness of breath Attending Provider: Alcides Saucedo Primary Care Provider: Kwan Murphy Chi Consulting Providers: Alanna Rogers; Feliberto Villalba; Feliberto Loomis; Elva Lincoln; Nanda Fagan; Gege Saleem NP; Aleyda Connolly Instructions Additional Instructions / Restrictions: Patient on Eliquis 10 mg twice daily completes on 04/23/2023 then switched to Eliquis 5 mg twice daily on 04/24/2023 Discharge Orders/Prescriptions Prescriptions: New acetaminophen 500 mg Tablet 1,000 mg PO Q8 Qty: 0 0RF bumetanide 0.5 mg Tablet 1 mg PO DAILY Qty: 60 0RF carvedilol 12.5 mg Tablet 12.5 mg PO BID Qty: 60 0RF lidocaine 5 % Adhesive Patch,Medicated 1 patch topical DAILY Qty: 15 0RF Protocol: *Topical Application Instructions APPLICATION INSTRUCTIONS: Apply to neck ibuprofen 400 mg Tablet 400 mg PO Q6H PRN PRN (Reason: Pain Score 1-10) Qty: 0 0RF risperidone 0.25 mg Tablet 0.25 mg PO QHS Qty: 30 0RF Eliquis 5 mg tablet 5 mg PO BID Qty: 60 0RF Eliquis 5 mg Tablet 10 mg PO BID 2 Days Qty: 8 0RF Rx Instructions: Complete on April 23, 2023 and then switch to 5 mg twice daily on April 24, 2023 Continued paroxetine HCl 10 mg tablet 10 mg PO QHS levothyroxine 75 mcg tablet 75 mcg PO QHS losartan 100 mg tablet 100 mg PO QHS Patient Comments: TAKE 1 TABLET BY MOUTH ONCE DAILY Discontinued aspirin 81 MG tablet,chewable 81 mg PO DAILY@0800 Patient Comments: heart health atorvastatin 20 MG tablet 20 mg PO QHS Patient Comments: lower cholesterol donepezil 10 mg tablet 10 mg PO QHS memantine 10 mg tablet 10 mg PO BID cholecalciferol (vitamin D3) [Vitamin D3] 50 mcg (2,000 unit) Capsule 50 mcg PO DAILY No Action Chloraseptic Sore Throat 6-10 mg Lozenge 1 ysabel mucous membrane Q2H PRN PRN (Reason: SORE THROAT) Qty: 0 0RF Referrals / Follow Up: Kwan Murphy Chi, MD [Primary Care Provider] - Disposition Disposition (needs filled in before D/C Order can be placed): Hospice in Home
[2023-04-20 11:29] VITALS: BP 149/85; PULSE 69; RESP 16; TEMP 36.7; O2SAT 96
[2023-04-20] MEDS: APIXABAN 5 MG TABLET 10 MG PO (11:32)
[2023-04-20] MEDS: Carvedilol 12.5 MG Tablet PO (11:33)
[2023-04-20] MEDS: Bumetanide 0.5 MG Tablet 1 MG PO (11:33)
[2023-04-20] MEDS: Lidocaine 5% Patch 1 PATCH TOPICAL (11:34)
[2023-04-20] MEDS: Aspirin 81 MG TAB.CHEW PO (11:34)
--- NOTE | 2023-04-20 13:04 | CASEMGMT ---
Social Work Hospice met w/family this morning. SW spoke w/daughter, they did sign w/hospice and would like to get pt home today. When SW was in room, hospice called daughter, they are to have the DME delivered by 3pm. SW asked daughter to call SW once the DME is delivered and SW will set up transport. SW will continue to follow. SW did let TCU know pt is going home on hospice. HARLEY Hernandez
[2023-04-20 13:08] LABS: Pathologist Review Reviewed
--- NOTE | 2023-04-20 13:33 | DS.PCM_ITS ---
Providers Date of Admission: 04/14/23 Date of Discharge: 04/20/23 Primary Care Physician: Dr. Kwan Murphy MD Consultations 04/15/23 03:04 Consult: Cardiology Routine Consulting Provider: Alanna Rogers Reason for Consult: elevated troponins EMERGENT Consult: No MD Notified: Yes Date Notified: 04/15/23 Time Notified: 06:32 Method of Notification: Text 04/19/23 13:07 Consult: Hospice / Palliative Care Routine Consulting Provider: [facility] Reason for Consult: [facility], FTT EMERGENT Consult: No MD Notified: Yes Date Notified: 04/19/23 Time Notified: 13:17 Method of Notification: Answering Service Reason For Visit: RLL PNA, ELEVATED TROPONIN, HYPOXIA & FALL Diagnosis Discharge Diagnosis (1) Hypokalemia: Status: Acute Code(s): E87.6 - Hypokalemia (2) Pulmonary emboli: Status: Acute Code(s): I26.99 - Other pulmonary embolism without acute cor pulmonale Qualifiers: Pulmonary embolism type: single subsegmental (without acute cor pulmonale) Qualified Code(s): I26.93 - Single subsegmental pulmonary embolism without acute cor pulmonale (3) Pleural effusion: Status: Acute Code(s): J90 - Pleural effusion, not elsewhere classified (4) Acute heart failure with preserved ejection fraction (HFpEF): Status: Acute Code(s): I50.31 - Acute diastolic (congestive) heart failure (5) Leukocytosis: Status: Acute Code(s): D72.829 - Elevated white blood cell count, unspecified (6) Thrombocytopenia: Status: Acute Code(s): D69.6 - Thrombocytopenia, unspecified (7) Elevated troponin: Status: Acute Code(s): R79.89 - Other specified abnormal findings of blood chemistry (8) Fall: Status: Acute Code(s): W19.XXXA - Unspecified fall, initial encounter Qualifiers: Encounter type: initial encounter Qualified Code(s): W19.XXXA - Unspecified fall, initial encounter (9) Hypoxia: Status: Acute Code(s): R09.02 - Hypoxemia Plan 83-year-old female with history of dementia, COVID in February 2023 was admitted to ED after she was found on the floor in the bathroom. It was unwitnessed. Then patient was brought to ED by squad, denied any injury. Patient was found hypoxic. Not on anticoagulant. 1. Acute hypoxia secondary to acute pulmonary embolism and acute decompensated heart failure with preserved ejection fraction. Clinically pneumonia will not suspected as the patient does not have fever, chills, sputum production or significant cough and onset was acute -CT of the chest was reviewed and compared to previous and patchy ground glass opacities were noted throughout the lung solorio bilaterally that were new when compared to her previous CT in February -BNP was obtained and found to be markedly elevated at 224 and has trended up -BNP is down to 140 -Continue Bumex but transition to 1 mg twice daily -Patient is currently on 1 L of nasal cannula with stable oxygen saturations consistently greater than 88% -She is still dropping on room air however -Suspect due to shallow breathing, bibasilar atelectasis and I do suspect she has some possible sleep apnea -Echocardiogram was performed due to troponin elevation and showed an EF of 60% with no diastolic dysfunction -I do suspect the acute heart failure may be related to acute blood pressure elevations along with PE despite no strain being noted on her echo or CT -Continue Eliquis 10 mg p.o. twice daily for 7 days then transition to 5 mg daily-currently day 5 of 7 for 10 mg -PE is provoked with recent COVID infection and debility and therefore would treat for 3 to 6 months -Speech therapy evaluated the patient and is recommending regular textures and thin liquids with compensatory strategies and assist feeding due to her debility 04/20/2023: Patient had 10th dose of Eliquis 10 mg in the morning and advised to change to 5 mg twice daily on 04/22/2023 at 8 PM, evening dose. 2. Epistaxis -Likely related to anticoagulation and dry nasal passageways due to supplemental oxygen -Stop Plavix -Humidify oxygen -Continue [place] nasal spray Hemostasis achieved. No more epistaxis. Left-sided neck pain -Patient has been having some left-sided neck pain that radiates into her left chest -It is all reproducible with positioning of her neck and palpitation of her anterior chest wall -I do suspect this is all musculoskeletal--> advanced imaging would be of no benefit at this time as family would not want to pursue any surgical options -Better today -Continue lidocaine patch -Continue scheduled Tylenol 1000 every 8 -Add low-dose as needed ibuprofen -Would continue to avoid sedating medication Recent COVID-19 infection -Diagnosed with COVID on 2023 -Went for rehab following and daughter states she is never quite been back to her baseline prior since then -Suspect she is having some symptoms of Long COVID -Current functional status is overall worse than it had been prior to her admission Thrombocytopenia -This was new as of February -Suspect may be related to her acute COVID infection -Platelets are stable with a slight uptrend to 107,000 Troponin elevation -Echo with normal EF and no wall motion abnormality -Per cardiology feels that this is likely a type II NSTEMI related to her hypoxia and possible subendocardial ischemia with her echo being unremarkable -Sat was 84% on presentation--> remains 87% on room air -No cardiac workup further required at this time but will refer to outpatient to consider for stress test after discharge -Continue Coreg 12.5 mg twice daily Uncontrolled hypertension -Blood pressures overall much better -Continue home losartan -Continue Coreg 12.5 mg p.o. twice daily -Continue as needed hydralazine for systolic pressure greater than 160 and continue to monitor -No use has been required Fall/generalized weakness -PT/OT following the patient is doing very poorly with physical therapy and minimally able to participate -Marked limitation with participation due to fatigue and severe weakness--> hospice consulted -Case management/social work is following Hyperlipidemia -Continue home statin Hypothyroidism -Continue home Synthroid OA -Continue home as needed Tylenol Dementia -Discontinue home memantine and donepezil -Continue low-dose risperidone Depression -Continue home paroxetine DVT prophylaxis -Continue Eliquis CODE STATUS -DNR CC with home hospice care Patient had a hospice meeting and decided for home with hospice care. Patient is going home. CODE STATUS changed to DNR CC. DNRCC papers signed. Medications at Discharge Home Medications levothyroxine 75 mcg tablet 75 mcg PO QHS thyroid 01/16/21 paroxetine HCl 10 mg tablet 10 mg PO QHS depression 01/16/21 losartan 100 mg tablet 100 mg PO QHS blood pressur 02/16/23 benzocaine 6 mg-menthol 10 mg lozenges (Chloraseptic Sore Throat) 1 ysabel mucous membrane Q2H PRN PRN SORE THROAT #0 ea 02/20/23 acetaminophen 500 mg tablet 1,000 mg (2 x 500 mg) PO Q8 #0 tabs 04/19/23 apixaban 5 mg tablet (Eliquis) 5 mg PO BID #60 tabs 04/19/23 bumetanide 0.5 mg tablet 1 mg (2 x 0.5 mg) PO DAILY #60 tabs 04/19/23 carvedilol 12.5 mg tablet 12.5 mg PO BID #60 tabs 04/19/23 ibuprofen 400 mg tablet 400 mg PO Q6H PRN PRN Pain Score 1-10 #0 tabs 04/19/23 lidocaine 5 % topical patch 1 patch topical DAILY #15 ea 04/19/23 risperidone 0.25 mg tablet 0.25 mg PO QHS #30 tabs 04/19/23 apixaban 5 mg tablet (Eliquis) 10 mg (2 x 5 mg) PO BID 2 days #8 tabs 04/20/23 Physical Exam Narrative Seen and examined. Patient on oxygen. Looks more short of breath but he states she does not feel it. Denies chest pain or tightness. Physical exam General: Alert, Oriented x3, Cooperative HEENT: Atraumatic, PERRLA, EOMI, Normocephalic Oral: No Gingival or Mucosal Lesions/ Ulcerations Neck: Supple, No JVD, Negative Carotid Bruits Chest wall/Lungs: Air entry diminished in bilateral lung bases. No crepitation/rhonchi Cardiovascular: Regular rate, Regular Rhythm, Normal S1, Normal S2, soft systolic murmur Abdomen: Bowel Sounds Present, Soft, Non Tender, Non-Distended : No dysuria. No renal angle tenderness. No suprapubic tenderness. Extremities: No edema, Capillary Refill Less than 3 Seconds Skin: No rashes, No breakdown Musculoskeletal: No Tenderness to Palpation of Joints or Extremities. No acute tenderness. Muscle strength 4/5 at major hip and knee joints Neurological: Cranial nerves II-XII grossly intact, DTR 2+/4. No acute focal neurological deficit. Psych/Mental Status: Flat affect. Weight / BMI Weight Weight: 171 lb 15.369 oz Body Mass Index (BMI) 28.6 ABG / Lab / Microbiology Data 04/19/23 06:44 04/19/23 06:44 Laboratory: Laboratory Results - last 24 hr 04/17/23 06:41: Diff Path Review Reviewed Microbiology: Microbiology 04/14/23 21:10 Mucosa - Nose SARS-CoV-2, Influenza & RSV (PCR) - Final Radiography Diagnostic Testing: Radiology Impression Chest X-Ray 04/19/23 05:40 IMPRESSION: Chronic interstitial changes, no superimposed acute pulmonary process Electronically Signed: Masood Ramírez MD at 14:21 EST Reading Location ID and State: [address] [place] [address] , Service support , D/C Instructions Discharge Diet: No restrictions Call your doctor if you observe: - (Home with hospice care.) Meaningful Use Info Meaningful Use Diagnoses (Choose all that apply): None applicable and VTE VTE Anticoag overlap given w/in hospital stay or rx'd at dc?: Yes Pt receive overlap for 5 days?: No Reason overlap not ordered, prescribed, or given for 5 days: Treatment Not Indicated Discharge Plan Admission Admit Date/Time: 04/14/23 23:08 Primary Reason for Your Visit: Fall/shortness of breath Attending Provider: Alcides Saucedo Primary Care Provider: Kwan Murphy Chi Consulting Providers: Alanna Rogers; Feliberto Villalba; Feliberto Loomis; Elva Lincoln; Nanda Fagan; Gege Saleem [employer]; Aleyda Connolly Instructions Additional Instructions / Restrictions: Patient on Eliquis 10 mg twice daily completes on 04/22/2023 @ 8 am then switched to Eliquis 5 mg twice daily at 8 PM on 04/22/2023. Discharge Orders/Prescriptions Prescriptions: New acetaminophen 500 mg Tablet 1,000 mg PO Q8 Qty: 0 0RF bumetanide 0.5 mg Tablet 1 mg PO DAILY Qty: 60 0RF carvedilol 12.5 mg Tablet 12.5 mg PO BID Qty: 60 0RF lidocaine 5 % Adhesive Patch,Medicated 1 patch topical DAILY Qty: 15 0RF Protocol: *Topical Application Instructions APPLICATION INSTRUCTIONS: Apply to neck ibuprofen 400 mg Tablet 400 mg PO Q6H PRN PRN (Reason: Pain Score 1-10) Qty: 0 0RF risperidone 0.25 mg Tablet 0.25 mg PO QHS Qty: 30 0RF Eliquis 5 mg tablet 5 mg PO BID Qty: 60 0RF Eliquis 5 mg tablet 10 mg PO BID 2 Days Qty: 8 0RF Rx Instructions: Complete on April 22, 2023 at 8 AM and then switch to 5 mg twice daily on 08/06/2023 at 8 PM Continued paroxetine HCl 10 mg tablet 10 mg PO QHS levothyroxine 75 mcg tablet 75 mcg PO QHS losartan 100 mg tablet 100 mg PO QHS Patient Comments: TAKE 1 TABLET BY MOUTH ONCE DAILY Discontinued aspirin 81 MG tablet,chewable 81 mg PO DAILY@0800 Patient Comments: heart health atorvastatin 20 MG tablet 20 mg PO QHS Patient Comments: lower cholesterol donepezil 10 mg tablet 10 mg PO QHS memantine 10 mg tablet 10 mg PO BID cholecalciferol (vitamin D3) [Vitamin D3] 50 mcg (2,000 unit) Capsule 50 mcg PO DAILY No Action Chloraseptic Sore Throat 6-10 mg Lozenge 1 ysabel mucous membrane Q2H PRN PRN (Reason: SORE THROAT) Qty: 0 0RF Referrals / Follow Up: Kwan Murphy Chi, MD [Primary Care Provider] - Disposition Disposition (needs filled in before D/C Order can be placed): Hospice in Home Charges/Coding Visit Charges Inpatient E&M: 56949 Disch Hosp >30min
--- NOTE | 2023-04-20 15:30 | CASEMGMT ---
Social Work As per RN, DME is being delivered now. SW set up an ambulance w/Physicians for 4:30. SW let son in room know, he will let pt's daughter know. SW called [facility], let them know pt is set up to leave here at 4:30pm, asked them to set up a time w/family to meet w/pt at home today. HARLEY Hernandez
== END 2023-04-20 16:54 | disposition hospice, home (50) | DRG 280 ==
LOC: ED 22:49 → PCU 23:24
PROVIDERS: Internal Medicine; Admitting Provider Internal Medicine; Emergency Provider Emergency Medicine; PCP Family Medicine Geriatric Medicine; Visit Provider Internal Medicine
DX: I11.0 Hypertensive heart disease with heart failure (principal); I21.A1 Myocardial infarction type 2; I26.93 Single subsegmental thrombotic pulmonary embolism without acute cor pulmonale; I50.31 Acute diastolic (congestive) heart failure; F05 Delirium due to known physiological condition; F03.94 Unspecified dementia, unspecified severity, with anxiety; F03.93 Unspecified dementia, unspecified severity, with mood disturbance; D69.59 Other secondary thrombocytopenia; E03.9 Hypothyroidism, unspecified; E86.0 Dehydration; M19.90 Unspecified osteoarthritis, unspecified site; E87.6 Hypokalemia; E78.00 Pure hypercholesterolemia, unspecified; D72.829 Elevated white blood cell count, unspecified; G47.30 Sleep apnea, unspecified; I25.10 Atherosclerotic heart disease of native coronary artery without angina pectoris; M54.2 Cervicalgia; U09.9 Post COVID-19 condition, unspecified; R09.02 Hypoxemia; E66.3 Overweight; Z68.29 Body mass index [BMI] 29.0-29.9, adult; Z66 Do not resuscitate; R04.0 Epistaxis; Z11.52 Encounter for screening for COVID-19; Z79.82 Long term (current) use of aspirin; Z79.01 Long term (current) use of anticoagulants
CPT/HCPCS: 36415; 71045; 71275; 80048; 80053; 80061; 83735; 83880; 84100; 84443; 84484; 85025; 85027; 85379; 85610; 87631; 92526; 92610; 93005; 93306; 93970; 94640; 94668; 97110; 97162; 97166; 97530; 97535; 99284; J7030; Q9967; A4216; J1940